=== PATIENT | female | born 1980 | race African-American/Black ===

== ENCOUNTER 2018-09-26 13:42 | Emergency (ER) | payer OTHER ==
--- OUTSIDE RECORDS SUMMARY | 2018-09-26 13:45 | XMS REPORT ---
:1980 Author Organization eClinicalWorks Care Team Providers Name Role Phone Caitlin Floyd Provider Role Unavailable Allergies, Adverse Reactions, Alerts Substance Reaction Event Type amitriptyline Info Not Available Drug Allergy Problems Problem Type Condition Code Onset Dates Condition Status Problem History of abnormal cervical Pap Z87.898 Active smear Assessment Well woman exam with routine Z01.419 Active gynecological exam Problem IUD (intrauterine device) in place Z97.5 Active Assessment IUD (intrauterine device) in place Z97.5 Active Assessment History of abnormal cervical Pap Z87.898 Active smear Medications Medication Code Code Instructions Start End Status Dosage System Date Date Mirena (52 MG) [facility] 59612916325 20 MCG/24HR Active not Intrauterine defined Trazodone HCl [facility] [address]-61 Active not defined Results No Known Results Summary Purpose eClinicalWorks Submission
--- OUTSIDE RECORDS SUMMARY | 2018-09-26 13:45 | XMS REPORT ---
:1980 Author Organization eClinicalWorks Care Team Providers Name Role Phone Caitlin Floyd Provider Role Unavailable Allergies, Adverse Reactions, Alerts Substance Reaction Event Type amitriptyline Info Not Available Drug Allergy Problems Problem Type Condition Code Onset Dates Condition Status Problem IUD (intrauterine device) in place Z97.5 Active Problem History of abnormal cervical Pap Z87.898 Active smear Problem Vaginal symptom N94.9 Active Assessment Vaginal symptom N94.9 Active Assessment Discharge from the vagina N89.8 Active Medications Medication Code Code Instructions Start End Status Dosage System Date Date Mirena (52 MG) [facility] [id number] 20 MCG/24HR Active not Intrauterine defined Trazodone HCl [facility] [address]-87 Active not defined Results No Known Results Summary Purpose eClinicalWorks Submission
--- OUTSIDE RECORDS SUMMARY | 2018-09-26 13:45 | XMS REPORT ---
:1980 Author Organization eClinicalWorks Care Team Providers Name Role Phone Caitlin Floyd Provider Role Unavailable Allergies No Known Allergies Problems Problem Type Condition Code Onset Dates Condition Status Problem IUD (intrauterine device) in place Z97.5 Active Problem History of abnormal cervical Pap Z87.898 Active smear Problem Vaginal symptom N94.9 Active Medications No Known Medications Results No Known Results Summary Purpose eClinicalWorks Submission
--- OUTSIDE RECORDS SUMMARY | 2018-09-26 13:45 | XMS REPORT ---
:1980 Author Organization eClinicalWorks Care Team Providers Name Role Phone Caitlin Floyd Provider Role Unavailable Allergies, Adverse Reactions, Alerts Substance Reaction Event Type amitriptyline Info Not Available Drug Allergy Problems Problem Type Condition Code Onset Dates Condition Status Problem HSV (herpes simplex virus) A60.9 Active anogenital infection Problem Vaginal symptom N94.9 Active Problem History of shingles Z86.19 Active Assessment HSV (herpes simplex virus) A60.9 Active anogenital infection Assessment History of shingles Z86.19 Active Problem IUD (intrauterine device) in place Z97.5 Active Problem History of abnormal cervical Pap Z87.898 Active smear Medications Medication Code Code Instructions Start End Status Dosage System Date Date Valacyclovir [facility] 06366102200 1 GM Orally September 01September Active 1 tablet HCl every 12 hours 2017 Trazodone HCl [facility] [address]-00 Active not defined Mirena (52 MG) [facility] 82638839171 20 MCG/24HR Active not Intrauterine defined Results No Known Results Summary Purpose eClinicalWorks Submission
[2018-09-26 14:40] LABS: Absolute Lymphocytes (CBC) 2.3 K/uL (0.7-4.9); Eosinophils % 0.6 % (0-4.4); Hematocrit 31.3 % (36.0-45.0); Lymphocytes % 34.4 % (15.3-44.8); MPV 9.4 fL (7.6-11.3); Monocytes % 10.2 % (3.3-12.3); RBC Red Blood Cell Count 4.14 M/uL (3.86-4.86)
[2018-09-26] MEDS ORDERED: ONDANSETRON 4 MG/2 ML VIAL ONE (14:46)
[2018-09-26] MEDS ORDERED: MORPHINE 4 MG/ML SYR ONE ×2 (14:46→16:43)
[2018-09-26 14:58] LABS: ALT/SGPT 14 U/L (12-78); AST/SGOT 19 U/L (15-37); Albumin 3.8 g/dL (3.4-5.0); Alkaline Phosphatase 56 U/L (45-117); BUN Blood Urea Nitrogen 7 mg/dL (7-18); Bicarbonate 26 mmol/L (21-32); Bilirubin Direct < 0.1 mg/dL (0-0.2); Bilirubin Total 0.2 mg/dL (0.2-1.0); Glucose Level 83 mg/dL (74-106); Lipase 219 U/L (73-393); Potassium 4.2 mmol/L (3.5-5.1); Protein, Total 7.3 g/dL (6.4-8.2); Sodium Level 143 mmol/L (136-145)
--- NOTE | 2018-09-26 15:31 | RAD REPORT ---
EXAM DESCRIPTION: CT - Abdomen Pelvis W Contrast - 09/26/2018 3:17 pm CLINICAL HISTORY: Abdominal pain and cramping COMPARISON: August 2008 CT study TECHNIQUE: Biphasic, helical CT imaging of the abdomen and pelvis was performed following 100 ml non -ionic IV contrast. Oral contrast was given. All CT scans are performed using dose optimization technique as appropriate and may include automated exposure control or mA/KV adjustment according to patient size. FINDINGS: No suspicious findings in the lung bases. The liver, spleen, and pancreas show no suspicious findings. Gallbladder and biliary tree are also wi thout suspicious finding. Symmetric renal function is seen with no hydronephrosis or suspicious renal mass. No pyelonephritis o r acute parenchymal process. No bladder abnormalities. No adrenal abnormalities. IUD is in place with in the uterus. No acute uterine finding. No gross ovarian abnormality. Ovaries are isodense to the ad jacent small bowel. No gastric dilatation or gastric wall thickening. Postsurgical changes the stomach are noted. No acut e colon finding. The appendix is normal. A few prominent small bowel loops are present in the lower a bdomen. No free air, free fluid or inflammatory stranding. No hernia, mass or bulky lymphadenopathy. No suspicious bony findings. IMPRESSION: A few prominent small bowel loops are present in the lower abdomen and may reflect a non specific enteritis. No obstruction or surgically emergent finding. No acute or BEACH ATTENDANT process.
--- NOTE | 2018-09-26 16:42 | EDPHYS ---
Physician Documentation [facility] Name: Sarmad Kaur Age: 38 yrs Sex: Female : 1980 Arrival Date: 09/26/2018 Time: 13:44 Bed 13 Private MD: Sanju Cheung R ED Physician Matt Smith HPI: 09/26 14:07 This 38 yrs old Black Female presents to ER via Ambulatory with complaints of Abdominal jmm Pain, Abdominal Cramping. 14:07 The patient presents with abdominal pain in the lower abdomen. Onset: The jmm symptoms/episode began/occurred gradually, 1 week(s) ago. The symptoms do not radiate. Associated signs and symptoms: Pertinent positives: diarrhea, nausea. The symptoms are described as achy. Modifying factors: The symptoms are alleviated by nothing, the symptoms are aggravated by pressure, touching the area. Patient states coworkers with similar symptoms. . 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 - Ebola Screening: : No symptoms or risks identified at this time. - Social history:: Smoking status: Patient/guardian denies using tobacco, Patient/guardian denies using alcohol. ROS: 14:07 Constitutional: Negative for fever, chills, and weight loss, Cardiovascular: Negative jmm for chest pain, palpitations, and edema, Respiratory: Negative for shortness of breath, cough, wheezing, and pleuritic chest pain. 14:07 Abdomen/GI: Positive for abdominal pain, nausea, diarrhea. 14:07 All other systems are negative. Exam: 14:07 Constitutional: This is a well developed, well nourished patient who is awake, alert, jmm and in no acute distress. Head/Face: atraumatic. Eyes: EOMI, no conjunctival erythema appreciated ENT: Moist Mucus Membranes Neck: Trachea midline, Supple Chest/axilla: Normal chest wall appearance and motion. Cardiovascular: Regular rate and rhythm. No edema appreciated Respiratory: Normal respirations, no respiratory distress appreciated 14:07 Skin: General appearance color normal MS/ Extremity: Moves all extremities, no obvious deformities appreciated, no edema noted to the lower extremities Neuro: Awake and alert, normal gait 14:07 Abdomen/GI: Inspection: abdomen appears normal, Bowel sounds: normal, Palpation: soft, mild abdominal tenderness, in the right lower quadrant and left lower quadrant. 14:07 Back: ROM is normal, CVA tenderness, is absent. Vital Signs: 13:51 BP 113 / 67; Pulse 68; Resp 16 S; Temp 98.1(TE); Pulse Ox 99% on R/A; Weight 68.95 kg aa5 (R); Height 5 ft. 4 in. (162.56 cm) (R); Pain 6/10; 14:36 BP 105 / 67; Pulse 69; Resp 18; Pulse Ox 100% on R/A; hj 15:39 BP 132 / 72; Pulse 62; Resp 18; Pulse Ox 100% on R/A; hj 16:51 BP 102 / 56; Pulse 62; Resp 18; Pulse Ox 100% on R/A; hj 13:51 Body Mass Index 26.09 (68.95 kg, 162.56 cm) aa5 MDM: 14:07 Patient medically screened. bogdan 16:40 Data reviewed: vital signs, nurses notes. Counseling: I had a detailed discussion with bogdan the patient and/or guardian regarding: the historical points, exam findings, and any diagnostic results supporting the discharge/admit diagnosis, lab results, radiology results, the need for outpatient follow up, to return to the emergency department if symptoms worsen or persist or if there are any questions or concerns that arise at home. 16:40 ED course: Patient pain is decreased in the ED. Patient will follow up with Dr. Rae mcfadden for further evaluation. Patient otherwise given strict return precautions. Patient understood and agrees with the plan of care. . 09/26 14:17 Order name: Basic Metabolic Panel [facility] 09/26 14:17 Order name: CBC with Diff [facility] 09/26 14:17 Order name: Creatinine for Radiology; Complete Time: 15:36 [facility] 09/26 14:17 Order name: Hepatic Function; Complete Time: 15:36 [facility] 09/26 14:17 Order name: Lipase; Complete Time: 15:36 [facility] 09/26 14:18 Order name: Basic Metabolic Panel; Complete Time: 15:36 [facility] 09/26 14:17 Order name: IV Saline Lock; Complete Time: 14:30 [facility] 09/26 14:17 Order name: CT Abd/Pelvis - PO and IV Contrast; Complete Time: 15:36 [facility] 09/26 14:18 Order name: CBC with Automated Diff; Complete Time: 15:36 [facility] 09/26 16:43 Order name: Urine Dipstick--Ancillary (enter results); Complete Time: 17:45 09/26 16:43 Order name: Urine --Ancillary (enter results); Complete Time: 17:45 09/26 14:17 Order name: Labs collected and sent; Complete Time: 14:30 [facility] 09/26 16:14 Order name: Urine Dipstick-Ancillary (obtain specimen); Complete Time: 16:32 jm Administered Medications: 14:30 Drug: morphine 4 mg Route: IVP; Site: left antecubital; hj 14:56 Follow up: Response: No adverse reaction hj 14:31 Drug: Zofran 4 mg Route: IVP; Site: left antecubital; hj 14:57 Follow up: Response: No adverse reaction; Nausea is decreased hj 16:24 Drug: morphine 4 mg Route: IVP; Site: left antecubital; hj 16:53 Follow up: Response: No adverse reaction; Pain is decreased hj Disposition: 09/27 10:10 Co-signature as Attending Physician, Matt Smith MD I agree with the assessment and marbella plan of care. Disposition: 09/26/18 16:41 Discharged to Home. Impression: Diarrhea, unspecified, Lower abdominal pain, unspecified. - Condition is Stable. - Discharge Instructions: Abdominal Pain, Adult, Food Choices to Help Relieve Diarrhea, Adult. - Prescriptions for Zofran ODT 4 mg Oral tablet,disintegrating - place 1 tablet by TRANSLINGUAL route every 4-6 hours; 20 tablet. Bentyl 20 mg Oral Tablet - take 1 tablet by ORAL route every 6 hours As needed; 20 tablet. Ultracet 37.5- 325 mg Oral Tablet - take 1 tablet by ORAL route every 6 hours - for up to 5 days; do not exceed 8 tablets per day.; 12 tablet. - Medication Reconciliation Form, Thank You Letter, Antibiotic Education, Prescription Opioid Use form. - Follow up: Mona Mcbride MD; When: 2 - 3 days; Reason: Recheck today's complaints, Continuance of care, Re-evaluation by your physician. Signatures: Dispatcher [employer] Matt Stewart MD MD cha Mickail, Joel, PA PA jmm Calderon, Audri, RN RN aa5 Dakota Chandler RN RN hj Corrections: (The following items were deleted from the chart) 09/26 17:09 16:41 09/26/2018 16:41 Discharged to Home. Impression: Diarrhea, unspecified; Lower hj abdominal pain, unspecified. Condition is Stable. Forms are Medication Reconciliation Form, Thank You Letter, Antibiotic Education, Prescription Opioid Use. Follow up: Mona Mcbride; When: 2 - 3 days; Reason: Recheck today's complaints, Continuance of care, Re-evaluation by your physician. bogdan
--- NOTE | 2018-09-26 16:42 | ER ---
Nurse's Notes [facility] Name: Sarmad Kaur Age: 38 yrs Sex: Female : 1980 Arrival Date: 09/26/2018 Time: 13:44 Bed 13 Private MD: Sanju Cheung R Diagnosis: Diarrhea, unspecified;Lower abdominal pain, unspecified Presentation: 09/26 13:49 Presenting complaint: Patient states: Abdominal cramping that began 1 week ago. Pt aa5 reports nausea and diarrhea. Denies vomiting. Transition of care: patient was not received from another setting of care. Onset of symptoms was September 2018. Risk Assessment: Do you want to hurt yourself or someone else? Patient reports no desire to harm self or others. Initial Sepsis Screen: Does the patient meet any 2 criteria? No. Patient's initial sepsis screen is negative. Does the patient have a suspected source of infection? No. Patient's initial sepsis screen is negative. Care prior to arrival: None. 13:49 Acuity: [place] 3 aa5 13:49 Method Of Arrival: Ambulatory aa5 Triage Assessment: 13:56 General: Appears in no apparent distress. uncomfortable, Behavior is calm, cooperative, hj appropriate for age. Pain: Complains of pain in abdomen. GI: Reports lower abdominal pain, upper abdominal pain, diarrhea, nausea. 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 - Ebola Screening: : No symptoms or risks identified at this time. - Social history:: Smoking status: Patient/guardian denies using tobacco, Patient/guardian denies using alcohol. Screenin:56 Abuse screen: Denies threats or abuse. Denies injuries from another. Nutritional hj screening: No deficits noted. Tuberculosis screening: No symptoms or risk factors identified. Fall Risk None identified. Assessment: 13:56 GI: Bowel sounds present X 4 quads. Abd is soft. hj 13:56 General: Appears in no apparent distress. uncomfortable, Behavior is calm, cooperative, hj appropriate for age. Pain: Complains of pain in abdomen. Neuro: Level of Consciousness is awake, alert, obeys commands, Oriented to person, place, time, situation, Appropriate for age. Cardiovascular: Capillary refill < 3 seconds Patient's skin is warm and dry. Respiratory: Airway is patent Respiratory effort is even, unlabored, Respiratory pattern is regular, symmetrical. : No signs and/or symptoms were reported regarding the genitourinary system. EENT: No signs and/or symptoms were reported regarding the EENT system. Derm: No signs and/or symptoms reported regarding the dermatologic system. Musculoskeletal: No signs and/or symptoms reported regarding the musculoskeletal system. 15:24 Reassessment: Patient and/or family updated on plan of care and expected duration. Pain hj level reassessed. Patient is alert, oriented x 3, equal unlabored respirations, skin warm/dry/pink. awaiting results and POC:. 16:51 Reassessment: Patient and/or family updated on plan of care and expected duration. Pain hj level reassessed. Patient is alert, oriented x 3, equal unlabored respirations, skin warm/dry/pink. for D?C;. Vital Signs: 13:51 BP 113 / 67; Pulse 68; Resp 16 S; Temp 98.1(TE); Pulse Ox 99% on R/A; Weight 68.95 kg aa5 (R); Height 5 ft. 4 in. (162.56 cm) (R); Pain 6/10; 14:36 BP 105 / 67; Pulse 69; Resp 18; Pulse Ox 100% on R/A; hj 15:39 BP 132 / 72; Pulse 62; Resp 18; Pulse Ox 100% on R/A; hj 16:51 BP 102 / 56; Pulse 62; Resp 18; Pulse Ox 100% on R/A; hj 13:51 Body Mass Index 26.09 (68.95 kg, 162.56 cm) aa5 ED Course: 13:44 Patient arrived in ED. rg4 13:45 Sanju Cheung MD is Private Physician. rg4 13:50 Triage completed. aa5 13:50 Arm band placed on. aa5 13:55 Dakota Chandler, ISIDRA is Primary Nurse. hj 13:57 Patient has correct armband on for positive identification. Placed in gown. Bed in low hj position. Call light in reach. Side rails up X 1. 14:00 [facility] 14:00 Matt Smith MD is Attending Physician. [facility] 14:25 Initial lab(s) drawn, by me, sent to lab. Inserted saline lock: 20 gauge in left hj antecubital area, using aseptic technique. Blood collected. 15:17 CT completed. Patient tolerated procedure well. Patient moved back from CT. mw3 15:17 CT Abd/Pelvis - PO and IV Contrast In Process Unspecified. EDMS 16:35 Urine collected: clean catch specimen, clear, samuel colored. jb1 16:41 Mona Mcbride MD is Referral Physician. [facility] 16:52 No provider procedures requiring assistance completed. IV discontinued, intact, hj bleeding controlled, No redness/swelling at site. Pressure dressing applied. Administered Medications: 14:30 Drug: morphine 4 mg Route: IVP; Site: left antecubital; hj 14:56 Follow up: Response: No adverse reaction hj 14:31 Drug: Zofran 4 mg Route: IVP; Site: left antecubital; hj 14:57 Follow up: Response: No adverse reaction; Nausea is decreased hj 16:24 Drug: morphine 4 mg Route: IVP; Site: left antecubital; hj 16:53 Follow up: Response: No adverse reaction; Pain is decreased hj Outcome: 16:41 Discharge ordered by MD. jmm 16:52 Discharged to home ambulatory, with family. hj 16:52 Condition: stable 16:52 Discharge instructions given to patient, family, Instructed on discharge instructions, follow up and referral plans. medication usage, Demonstrated understanding of instructions, follow-up care, medications, Prescriptions given X 3. 17:09 Patient left the ED. hj Signatures: Dispatcher [employer] EDMS Bret Orona jb1 Hugo Galindo PA PA Mariluz Dejesus, RN RN aa5 Dakota Chandler RN RN Mansi Baker4 Eloisa Moon mw3 Corrections: (The following items were deleted from the chart) 13:52 13:51 BP 113 / 67; Pulse 68bpm; Resp 16bpm; Spontaneous; Pulse Ox 99% RA; Temp 98.1F aa5 Temporal; aa5
[2018-09-26 16:47] LABS: Urine Blood NEGATIVE (NEG); Urine Glucose NEGATIVE (NEG); Urine Protein NEGATIVE (NEG); Urine Specific Gravity 1.015 (1.005-1.030)
== END 2018-09-26 17:09 | disposition home or self-care (01) ==
LOC: ER 13:42
DX: R19.7 Diarrhea, unspecified (principal); Z88.8 Allergy status to other drugs, medicaments and biological substances
CPT/HCPCS: 85025; 80048; 36415; 81025; 80076; 81003; 83690; 74177; 96375; 96374; 99284; Q9967; J2405

== ENCOUNTER 2018-10-14 09:18 | Emergency (ER) | payer OTHER ==
--- OUTSIDE RECORDS SUMMARY | 2018-10-14 09:20 | XMS REPORT ---
[...] Dosage System Date Date Mirena (52 MG) [facility] 29887574166 20 MCG/24HR Active not Intrauterine defined Trazodone HCl [facility] [address]-64 Active not defined Results No Known Results Summary Purpose eClinicalWorks Submission
--- OUTSIDE RECORDS SUMMARY | 2018-10-14 09:20 | XMS REPORT ---
[...] Dosage System Date Date Mirena (52 MG) [facility] 32316310303 20 MCG/24HR Active not Intrauterine defined Trazodone HCl [facility] [address]-89 Active not defined Results No Known Results Summary Purpose eClinicalWorks Submission
--- OUTSIDE RECORDS SUMMARY | 2018-10-14 09:21 | XMS REPORT ---
[...] End Status Dosage System Date Date Valacyclovir [facility] [id number] 1 GM Orally September 01September Active 1 tablet HCl every 12 hours 2017 Trazodone HCl [facility] [address]-02 Active not defined Mirena (52 MG) [facility] 08910520043 20 MCG/24HR Active not Intrauterine defined Results No Known Results Summary Purpose eClinicalWorks Submission
[2018-10-14] MEDS ORDERED: FENTANYL CITR 100 MCG/2 ML ONE (10:15)
[2018-10-14] MEDS ORDERED: ASPIRIN 81 MG CHEWABLE TABLET ONE (10:15)
--- NOTE | 2018-10-14 10:22 | RAD REPORT ---
EXAM DESCRIPTION: US - CP - 10/14/2018 10:11 am CLINICAL HISTORY: NUMBNESS Headache, drowsiness COMPARISON: CT MYELOGRAM CERVICAL dated 10/18/2013; THYROID PARA PAROTID GLAND dated 06/09/2007 TECHNIQUE: Real-time sonographic evaluation of both carotid systems was performed. Doppler interroga tion was performed with waveform tracing bilaterally. FINDINGS: Normal high resistance waveforms are noted in both external carotid arteries. The common c arotid arteries and internal carotid arteries show normal low resistance waveforms. Small amount hard plaque is seen in the left carotid bulb. Peak systolic and end diastolic velocity v alues and the ICA/CCA ratios are in the non-hemodynamically significant range. Antegrade flow seen in both vertebral arteries. IMPRESSION: Small amount of hard plaque is seen left carotid bulb. No evidence of a hemodynamically significant stenosis.
--- NOTE | 2018-10-14 10:31 | RAD REPORT ---
EXAM DESCRIPTION: RAD - Chest Single View - 10/14/2018 10:23 am CLINICAL HISTORY: CHEST PAIN Chest pain. COMPARISON: CHEST PA AND LAT 2 VIEW dated 06/30/2008; CHEST SINGLE VIEW dated 01/05/2005; ABDOMEN ACUT E SERIES dated 08/27/2003; CHEST PA AND LAT 2 VIEW dated 05/29/2002 FINDINGS: Portable technique limits examination quality. The lungs are grossly clear. The heart is upper limit of normal in size. No displaced fractures.Cervi ines hardware plate is noted. IMPRESSION: No acute intrathoracic process suspected.
[2018-10-14 10:58] LABS: Urine Blood NEGATIVE (NEG); Urine Glucose NEGATIVE (NEG); Urine Protein TRACE (NEG); Urine Specific Gravity 1.015 (1.005-1.030); Urine pH 8.5 (5.0-7.0)
[2018-10-14 11:05] LABS: Absolute Lymphocytes (CBC) 2.6 K/uL (0.7-4.9); Basophils % 0.9 % (0-1.3); Eosinophils % 0.7 % (0-4.4); Hematocrit 35.9 % (36.0-45.0); Lymphocytes % 36.2 % (15.3-44.8); Monocytes % 7.9 % (3.3-12.3); RBC Red Blood Cell Count 4.76 M/uL (3.86-4.86)
[2018-10-14 11:07] LABS: Protime INR 1.02
[2018-10-14 11:32] LABS: ALT/SGPT 17 U/L (12-78); AST/SGOT 16 U/L (15-37); Albumin 4.2 g/dL (3.4-5.0); Alkaline Phosphatase 57 U/L (45-117); BUN Blood Urea Nitrogen 6 mg/dL (7-18); Bicarbonate 26 mmol/L (21-32); Bilirubin Direct < 0.1 mg/dL (0-0.2); Bilirubin Total 0.2 mg/dL (0.2-1.0); Glucose Level 89 mg/dL (74-106); Magnesium 1.9 mg/dL (1.8-2.4); NT PRO-BNP 61 pg/mL (<125); Potassium 3.5 mmol/L (3.5-5.1); Sodium Level 142 mmol/L (136-145); Troponin (Emerg Dept Use Only) < 0.02 ng/mL (0.0-0.045)
[2018-10-14 11:48] LABS: Urine Bacteria <20 /HPF (<20); Urine Culture Reflex Order NOT NEEDED; Urine RBC NONE SEEN /HPF (NONE SEEN)
--- NOTE | 2018-10-14 12:14 | RAD REPORT ---
EXAM DESCRIPTION: CT - Chest For Pe Angio - 10/14/2018 12:04 pm CLINICAL HISTORY: Chest pain. CHEST PAIN COMPARISON: <Comparisons> TECHNIQUE: CT angiogram of the pulmonary arteries was performed with MIP. All CT scans are performed using dose optimization technique as appropriate and may include automated exposure control or mA/KV adjustment according to patient size. FINDINGS: No evidence of pulmonary thromboembolism. No acute aortic finding demonstrated. The lungs are clear. No significant pericardial or pleural fluid. No concerning bony finding. IMPRESSION: No evidence of pulmonary thromboembolism. No acute lung findings.
[2018-10-14] MEDS ORDERED: FAMOTIDINE 20 MG/2 ML VIAL IV ONE (12:22)
[2018-10-14] MEDS ORDERED: DIPHENHYDRAMINE 50 MG/ML VIAL ONE (12:22)
[2018-10-14] MEDS ORDERED: METHYLPREDNISOLONE 125 MG INJ ONE (12:22)
--- NOTE | 2018-10-14 14:16 | EDPHYS ---
Physician Documentation [facility] Name: Sarmad Kaur Age: 38 yrs Sex: Female : 1980 Arrival Date: 10/14/2018 Time: 09:19 Bed 20 Private MD: ED Physician Cong Min HPI: 10/14 09:55 This 38 yrs old Black Female presents to ER via Wheelchair with complaints of Chest snw Pain, Numbness Of Face. 09:55 Onset: The symptoms/episode began/occurred suddenly, this morning. Associated signs and snw symptoms: Pertinent positives: "i just don't feel right". Modifying factors: The patient symptoms are alleviated by nothing, the patient symptoms are aggravated by movement, deep inspiration. The patient has not experienced similar symptoms in the past. Sees Dr. Cheung. SHOW HOST/HOSTESS: 09:30 LMP N/A - control method iw Historical: - Allergies: 09:52 Amitriptyline; iw - Home Meds: 09:52 topiramate 100 mg oral tab 1 tab 2 times per day [Active]; iw - PMHx: 09:52 Depression; HYPOGLYCEMIA; neuropathy; T10-S1 Herniated/Bulging Disc; Migraines; iw - PSHx: 09:52 ACDF; Tubal ligation; iw - Immunization history:: Adult Immunizations not up to date. - Social history:: Smoking status: Patient/guardian denies using tobacco. - Ebola Screening: : Patient negative for fever greater than or equal to 101.5 degrees Fahrenheit, and additional compatible Ebola Virus Disease symptoms Patient denies exposure to infectious person Patient denies travel to an Ebola-affected area in the 21 days before illness onset No symptoms or risks identified at this time. ROS: 09:47 Constitutional: Negative for fever, chills, and weight loss, Eyes: Negative for injury, snw pain, redness, and discharge, ENT: Negative for injury, pain, and discharge, Neck: Negative for injury, pain, and swelling. 09:47 Abdomen/GI: Negative for abdominal pain, nausea, vomiting, diarrhea, and constipation, Back: Negative for injury, left back with pain on inspiration : Negative for injury, bleeding, discharge, and swelling, MS/Extremity: Negative for injury and deformity, Skin: Negative for injury, rash, and discoloration. 09:47 Psych: Negative for depression, anxiety, suicide ideation, homicidal ideation, and hallucinations. 09:47 Cardiovascular: Positive for chest pain, of the left clavicle, anterior aspect of left upper chest and left lateral posterior chest, pt unable to differentiate if pain is at chest or in upper left back. 09:47 Respiratory: Positive for pleurisy, of the anterior aspect of left upper chest and left lateral posterior chest. 09:47 Neuro: Positive for numbness, of the right cheek and right jaw. Exam: 09:45 Constitutional: This is a well developed, well nourished patient who is awake, alert, snw and in no acute distress. Head/Face: Normocephalic, atraumatic. Eyes: Pupils equal round and reactive to light, extra-ocular motions intact. Lids and lashes normal. Conjunctiva and sclera are non-icteric and not injected. Cornea within normal limits. Periorbital areas with no swelling, redness, or edema. ENT: Nares patent. No nasal discharge, no septal abnormalities noted. Tympanic membranes are normal and external auditory canals are clear. Oropharynx with no redness, swelling, or masses, exudates, or evidence of obstruction, uvula midline. Mucous membranes moist. Neck: Trachea midline, no thyromegaly or masses palpated, and no cervical lymphadenopathy. Supple, full range of motion without nuchal rigidity, or vertebral point tenderness. No Meningismus. Chest/axilla: Normal chest wall appearance and motion. Nontender with no deformity. No lesions are appreciated. 09:45 Respiratory: Lungs have equal breath sounds bilaterally, clear to auscultation and percussion. No rales, rhonchi or wheezes noted. No increased work of breathing, no retractions or nasal flaring. Splinting second to pain to left chest Abdomen/GI: Soft, non-tender, with normal bowel sounds. No distension or tympany. No guarding or rebound. No evidence of tenderness throughout. Back: No spinal tenderness. No costovertebral tenderness. Full range of motion. Skin: Warm, dry with normal turgor. Normal color with no rashes, no lesions, and no evidence of cellulitis. MS/ Extremity: Pulses equal, no cyanosis. Neurovascular intact. Full, normal range of motion. Neuro: Awake and alert, GCS 15, oriented to person, place, time, and situation. Cranial nerves II-XII grossly intact. Motor strength 5/5 in all extremities. Sensory grossly intact. Cerebellar exam normal. Normal gait. alteration in sensation to right face 09:45 Cardiovascular: Rate: tachycardic, Rhythm: regular, Pulses: no pulse deficits are appreciated, Heart sounds: normal. 09:45 ECG was reviewed by the Attending Physician. Vital Signs: 09:30 BP 104 / 66; Pulse 82; Resp 16; Temp 97.7; Pulse Ox 99% on R/A; Pain 8/10; iw 10:55 BP 117 / 78; Pulse 64; Resp 18; Pulse Ox 100% on R/A; ae4 11:19 BP 113 / 63; Pulse 74; Resp 18; Pulse Ox 99% on R/A; ae4 12:29 BP 98 / 55; Pulse 53; Resp 15; Pulse Ox 100% on R/A; ae4 13:29 BP 90 / 56; Pulse 66; Resp 20; Temp 98.0(O); Pulse Ox 100% ; mh5 14:05 BP 96 / 65; Pulse 66; Resp 21; Pulse Ox 100% on R/A; ae4 MDM: 09:28 Patient medically screened. snw 14:17 Data reviewed: vital signs, nurses notes. Data interpreted: Pulse oximetry: on room air snw is 100 %. Interpretation: normal. Counseling: I had a detailed discussion with the patient and/or guardian regarding: the historical points, exam findings, and any diagnostic results supporting the discharge/admit diagnosis, lab results, radiology results, the need for outpatient follow up, to return to the emergency department if symptoms worsen or persist or if there are any questions or concerns that arise at home. Special discussion: Based on the patient's history, exam, and Dx evaluation, there is no indication for emergent intervention or inpatient Tx. It is understood by the patient/guardian that if the Sx's persist or worsen they need to return immediately for re-evaluation. Based on the history and exam findings, there is no indication for further emergent testing or inpatient evaluation. I discussed with the patient/guardian the need to see the primary care provider for further evaluation of the symptoms. 10/14 09:29 Order name: Basic Metabolic Panel; Complete Time: 11:34 snw 10/14 09:29 Order name: CBC with Diff; Complete Time: 11:07 snw 10/14 09:29 Order name: LFT's; Complete Time: 11:34 w 10/14 09:29 Order name: Magnesium; Complete Time: 11:34 snw 10/14 09:29 Order name: NT PRO-BNP; Complete Time: 11:34 snw 10/14 09:29 Order name: PT-INR; Complete Time: 11:12 snw 10/14 09:29 Order name: Troponin (emerg Dept Use Only); Complete Time: 11:34 10/14 09:29 Order name: XRAY Chest (1 view); Complete Time: 10:34 10/14 09:29 Order name: TSH; Complete Time: 11:34 10/14 09:29 Order name: Carotid Artery Bilateral US; Complete Time: 10:23 10/14 09:31 Order name: Urine Microscopic Only; Complete Time: 11:49 10/14 10:52 Order name: Urine Dipstick--Ancillary (enter results) ag 10/14 10:52 Order name: Urine --Ancillary (enter results); Complete Time: 10:59 ag 10/14 12:29 Order name: Troponin I; Complete Time: 13:35 ae4 10/14 09:29 Order name: EKG; Complete Time: 09:32 10/14 09:29 Order name: Cardiac monitoring; Complete Time: 10:54 10/14 09:29 Order name: EKG - Nurse/Tech; Complete Time: 10:54 10/14 09:29 Order name: IV Saline Lock; Complete Time: 10:55 10/14 09:29 Order name: Labs collected and sent; Complete Time: 10:55 10/14 09:29 Order name: O2 Per Protocol; Complete Time: 10:55 10/14 09:29 Order name: O2 Sat Monitoring; Complete Time: 10:55 10/14 09:31 Order name: Urine Test (obtain specimen); Complete Time: 10:54 10/14 09:31 Order name: Urine Dipstick-Ancillary (obtain specimen); Complete Time: 10:54 10/14 09:44 Order name: CT Chest For PE Angio; Complete Time: 12:18 snw 10/14 12:19 Order name: Repeat Cardiac Enzymes at: 1245; Complete Time: 12:53 snw 10/14 13:35 Order name: EKG; Complete Time: 13:35 snw Administered Medications: 10:38 Drug: Aspirin Chewable Tablet 324 mg Route: PO; ae4 14:16 Follow up: Response: No adverse reaction ae4 10:38 Drug: fentaNYL (PF) 25 mcg Route: IVP; Site: left antecubital; ae4 14:16 Follow up: Response: Pain is unchanged, physician notified ae4 12:22 Drug: Benadryl 25 mg Route: IVP; Site: left antecubital; iw 12:39 Follow up: Response: Other; Patient appears more relaxed, patient reports the feeling ae4 in her throat is gone. 14:20 Drug: TORadol - Ketorolac 15 mg Route: IVP; Site: left antecubital; ae4 14:33 Follow up: Response: Medication administered at discharge. ae4 Disposition: 19:04 Co-signature as Attending Physician, Cong Min MD I agree with the assessment and kdr plan of care. Disposition: 10/14/18 14:16 Discharged to Home. Impression: Chest pain, unspecified, Paresthesia of skin - right face. - Condition is Stable. - Discharge Instructions: Nonspecific Chest Pain, Paresthesia, Aspirin and Your Heart, Cryotherapy, Heat Therapy. - Work release form, Medication Reconciliation Form, Thank You Letter, Antibiotic Education, Prescription Opioid Use form. - Follow up: Sanju Cheung MD; When: as scheduled; Reason: Recheck today's complaints, Continuance of care, Re-evaluation by your physician. Follow up: Emergency Department; When: As needed; Reason: Worsening of condition. Signatures: Dispatcher [employer] EDWI Cong Min MD MD kdr Therrien, Shelly, FNP-C REINSURANCE CLAIM ANALYST-Susie Chu, ISIDRA RN iw Stephen Lynn RN RN ae4 Corrections: (The following items were deleted from the chart) 14:43 14:16 10/14/2018 14:16 Discharged to Home. Impression: Chest pain, unspecified; ae4 Paresthesia of skin - right face. Condition is Stable. Forms are Medication Reconciliation Form, Thank You Letter, Antibiotic Education, Prescription Opioid Use. Follow up: Sanju Cheung; When: as scheduled; Reason: Recheck today's complaints, Continuance of care, Re-evaluation by your physician. Follow up: Emergency Department; When: As needed; Reason: Worsening of condition. snw
--- NOTE | 2018-10-14 14:16 | ER ---
Nurse's Notes [facility] Name: Sarmad Kaur Age: 38 yrs Sex: Female : 1980 Arrival Date: 10/14/2018 Time: 09:19 Bed 20 Private MD: Diagnosis: Chest pain, unspecified;Paresthesia of skin-right face Presentation: 10/14 09:25 Presenting complaint: Patient states: left sided cheat pain started at 0910 this iw morning, pain described as tightness, constant also had tingling/tightness to right side of face radiating down entire right side, symptoms to face are improving but still has chest pain. Transition of care: patient was not received from another setting of care. Onset of symptoms was October 14, 2018. Risk Assessment: Do you want to hurt yourself or someone else? Patient reports no desire to harm self or others. Initial Sepsis Screen: Does the patient meet any 2 criteria? No. Patient's initial sepsis screen is negative. Does the patient have a suspected source of infection? No. Patient's initial sepsis screen is negative. Care prior to arrival: None. 09:25 Method Of Arrival: Wheelchair iw 09:25 Acuity: PEYTON 3 iw Triage Assessment: 11:19 General: Appears in no apparent distress. uncomfortable, Behavior is calm, cooperative, ae4 appropriate for age. VALUER: 09:30 LMP N/A - control method iw Historical: - Allergies: 09:52 Amitriptyline; iw - Home Meds: 09:52 topiramate 100 mg oral tab 1 tab 2 times per day [Active]; iw - PMHx: 09:52 Depression; HYPOGLYCEMIA; neuropathy; T10-S1 Herniated/Bulging Disc; Migraines; iw - PSHx: 09:52 ACDF; Tubal ligation; iw - Immunization history:: Adult Immunizations not up to date. - Social history:: Smoking status: Patient/guardian denies using tobacco. - Ebola Screening: : Patient negative for fever greater than or equal to 101.5 degrees Fahrenheit, and additional compatible Ebola Virus Disease symptoms Patient denies exposure to infectious person Patient denies travel to an Ebola-affected area in the 21 days before illness onset No symptoms or risks identified at this time. Screenin:56 Abuse screen: Denies threats or abuse. Nutritional screening: No deficits noted. ae4 Tuberculosis screening: No symptoms or risk factors identified. Fall Risk None identified. Assessment: 10:57 Pain: Pain began suddenly. ae4 11:20 Reassessment: Patient appears in no apparent distress at this time. Patient and/or ae4 family updated on plan of care and expected duration. Pain level reassessed. Reassessment: Patient states there has been no change to pain level. Pain: Complains of pain in chest. 11:21 General: Appears in no apparent distress. uncomfortable, Behavior is calm, cooperative, ae4 appropriate for age. Pain: Pain does not radiate. Neuro: Level of Consciousness is awake, alert, obeys commands, Oriented to person, place, time, situation, Appropriate for age. Cardiovascular: Reports chest pain, Denies fatigue, lightheadedness, nausea, shortness of breath, Heart tones S1 S2 present. Respiratory: Airway is patent Respiratory effort is even, unlabored, Respiratory pattern is regular, symmetrical, Breath sounds are clear bilaterally. GI: Abdomen is flat. : No signs and/or symptoms were reported regarding the genitourinary system. EENT: No signs and/or symptoms were reported regarding the EENT system. 12:22 Reassessment: technical applications specialist called to report pt was having a hard time breathing after IV iw contrast, pt appears anxious, but feeling like her breathing is better, pt states she feels a lot of anxiety but still feels she can't get a good breath, verbal order given for 25 mg Benadryl IVP given now. 12:37 Reassessment: Patient states Benadryl helped . Patient states feeling better. ae4 14:06 Reassessment: Patient appears in no apparent distress at this time. Patient and/or ae4 family updated on plan of care and expected duration. Pain level reassessed. Patient states feeling better. Vital Signs: 09:30 BP 104 / 66; Pulse 82; Resp 16; Temp 97.7; Pulse Ox 99% on R/A; Pain 8/10; iw 10:55 BP 117 / 78; Pulse 64; Resp 18; Pulse Ox 100% on R/A; ae4 11:19 BP 113 / 63; Pulse 74; Resp 18; Pulse Ox 99% on R/A; ae4 12:29 BP 98 / 55; Pulse 53; Resp 15; Pulse Ox 100% on R/A; ae4 13:29 BP 90 / 56; Pulse 66; Resp 20; Temp 98.0(O); Pulse Ox 100% ; mh5 14:05 BP 96 / 65; Pulse 66; Resp 21; Pulse Ox 100% on R/A; ae4 ED Course: 09:19 Patient arrived in ED. as 09:26 Talita Swan FNP-C [facility]. snw 09:26 Cong Min MD is Attending Physician. snw 09:49 Stephen Lynn, ISIDRA is Primary Nurse. ae4 09:51 Triage completed. iw 09:53 Arm band placed on. iw 10:10 Carotid Artery Bilateral US In Process Unspecified. EDMS 10:24 XRAY Chest (1 view) In Process Unspecified. EDMS 10:33 EKG done, by battery technician. reviewed by Talita LAYTON. dt2 10:56 Inserted saline lock: 22 gauge in left antecubital area, using aseptic technique. Blood ae4 collected. Patient maintains SpO2 saturation greater than 95% on room air. 10:57 Placed in gown. Bed in low position. Call light in reach. Side rails up X 1. Cardiac ae4 monitor on. Pulse ox on. NIBP on. Warm blanket given. 12:06 CT Chest For PE Angio In Process Unspecified. EDMS 14:14 Sanju Cheung MD is Referral Physician. snw 14:34 No provider procedures requiring assistance completed. IV discontinued, intact, ae4 bleeding controlled, No redness/swelling at site. Pressure dressing applied. Administered Medications: 10:38 Drug: Aspirin Chewable Tablet 324 mg Route: PO; ae4 14:16 Follow up: Response: No adverse reaction ae4 10:38 Drug: fentaNYL (PF) 25 mcg Route: IVP; Site: left antecubital; ae4 14:16 Follow up: Response: Pain is unchanged, physician notified ae4 12:22 Drug: Benadryl 25 mg Route: IVP; Site: left antecubital; iw 12:39 Follow up: Response: Other; Patient appears more relaxed, patient reports the feeling ae4 in her throat is gone. 14:20 Drug: TORadol - Ketorolac 15 mg Route: IVP; Site: left antecubital; ae4 14:33 Follow up: Response: Medication administered at discharge. ae4 Intake: Outcome: 14:16 Discharge ordered by MD. everett 14:34 Discharged to home ambulatory. ae4 14:34 Condition: stable 14:34 Discharge instructions given to patient, Instructed on discharge instructions, follow up and referral plans. Demonstrated understanding of instructions. 14:43 Patient left the ED. ae4 Signatures: Dispatcher [employer] EDMS Talita Swan, PETROLEUM ANALYST-C PETROLEUM ANALYST-Sonam Nagy Irene, RN Alfreda Cortes 5 Briseyda Dunn 2 Stephen Lynn RN RN ae4
[2018-10-14] MEDS ORDERED: KETOROLAC 30 MG/ML INJ ONE (14:38)
--- NOTE | 2018-10-14 14:47 | EKG ---
Test Date: 2018-10-14 Test Time: 13:51:07 Fire Extinguisher Technician: KELLI/Josh MEASUREMENT RESULTS: Intervals: Rate: 56 CT: 122 QRSD: 86 QT: 396 QTc: 382 Lawrence: P: 51 CT: 122 QRS: 62 T: 64 INTERPRETIVE STATEMENTS: Sinus bradycardia Otherwise normal ECG Compared to ECG 10/14/2018 09:26:04 Sinus rhythm no longer present Electronically Signed On 10-14-18 14:46:38 CDT by Seth Stack
--- NOTE | 2018-10-14 14:48 | EKG ---
Test Date: 2018-10-14 Test Time: 09:26:04 Ab Initio Etl Developer: HALIE MEASUREMENT RESULTS: Intervals: Rate: 82 NM: 114 QRSD: 80 QT: 360 QTc: 420 [place]: P: 78 NM: 114 QRS: 55 T: 55 INTERPRETIVE STATEMENTS: Normal sinus rhythm Normal ECG No previous ECG available for comparison Electronically Signed On 10-14-18 14:46:49 CDT by Seth Stack
== END 2018-10-14 14:43 | disposition home or self-care (01) ==
LOC: ER 09:18
DX: R20.2 Paresthesia of skin (principal); F32.9 Major depressive disorder, single episode, unspecified; Z88.8 Allergy status to other drugs, medicaments and biological substances
CPT/HCPCS: 93005 ×2; 85025; 80048; 36415; 83735; 81025; 85610; 80076; 84443; 84484 ×2; 83880; 71275; 71045; 93880; 96375; 96374; 99285; Q9967; J3010; 81003; 81015; J2930

== ENCOUNTER 2019-04-29 19:16 | Emergency (ER) | payer OTHER ==
--- OUTSIDE RECORDS SUMMARY | 2019-04-29 19:20 | XMS REPORT ---
[...] End Status Dosage System Date Date Valacyclovir [facility] [id number] 1 GM Orally September 01September Active 1 tablet HCl every 12 hours 2017 Trazodone HCl [facility] [address]-70 Active not defined Mirena (52 MG) [facility] [id number] 20 MCG/24HR Active not Intrauterine defined Results No Known Results Summary Purpose eClinicalWorks Submission
--- OUTSIDE RECORDS SUMMARY | 2019-04-29 19:20 | XMS REPORT ---
:1980 [facility] Address [address] [place] [address] Care Team Providers Name Role Phone Unavailable Unavailable Unavailable Payers Payer Name Policy Type Policy Number Effective Date Expiration Date Problems This patient has no known problems. Allergies, Adverse Reactions, Alerts Allergy Allergy Status Severity Reaction(s) Onset Inactive Treating Comments Name Type Date Date Clinician No Known DA Active U 2014-12 Allergies -12 00:00:0 0 Medications This patient has no known medications.
--- OUTSIDE RECORDS SUMMARY | 2019-04-29 19:20 | XMS REPORT ---
[...] Dosage System Date Date Mirena (52 MG) [facility] [id number] 20 MCG/24HR Active not Intrauterine defined Trazodone HCl [facility] [address]-23 Active not defined Results No Known Results Summary Purpose eClinicalWorks Submission
--- OUTSIDE RECORDS SUMMARY | 2019-04-29 19:20 | XMS REPORT ---
[...] Dosage System Date Date Mirena ([address]) [facility] [id number] 20 MCG/24HR Active not Intrauterine defined Trazodone HCl [facility] [address]-09 Active not defined Results No Known Results Summary Purpose eClinicalWorks Submission
[2019-04-29] MEDS ORDERED: HYDROCODONE/APAP 10/325 TAB ONE (20:30)
[2019-04-29 21:16] LABS: Urine Blood NEGATIVE (NEG); Urine Glucose NEGATIVE (NEG); Urine Protein NEGATIVE (NEG); Urine pH 6.5 (5.0-7.0)
--- NOTE | 2019-04-29 21:33 | RAD REPORT ---
EXAM DESCRIPTION: RAD - Chest Single View - 04/29/2019 8:46 pm CLINICAL HISTORY: COUGH COMPARISON: Chest Single View dated 10/14/2018 TECHNIQUE: AP portable chest image was obtained 04/29/2019 8:46 pm . FINDINGS: Lungs are clear. Heart and vasculature are normal. No measurable pleural effusion and no p neumothorax. No acute bony abnormality seen. No acute aortic findings suspected. IMPRESSION: No acute cardiopulmonary process.
--- NOTE | 2019-04-29 21:34 | RAD REPORT ---
EXAM DESCRIPTION: RAD - Wrist Right 3 View - 04/29/2019 8:46 pm CLINICAL HISTORY: PAIN, trauma COMPARISON: No comparisons FINDINGS: No fracture is identified. There is no dislocation or periosteal reaction noted. No foreig n body or other soft tissue abnormality. IMPRESSION: Negative right wrist examination.
--- NOTE | 2019-04-29 21:34 | RAD REPORT ---
EXAM DESCRIPTION: RAD - Hand Left 3 View - 04/29/2019 8:46 pm CLINICAL HISTORY: Hand pain, trauma COMPARISON: None. FINDINGS: No fracture, dislocation or periosteal reaction noted. No foreign body or other soft tissu e abnormality. Artifacts are present on the fingernails. Watch and truly artifact is seen at the dist al forearm. IMPRESSION: Negative left hand examination.
--- NOTE | 2019-04-29 21:49 | ER ---
Nurse's Notes [facility] Name: Sarmad Kaur Age: 38 yrs Sex: Female : 1980 Arrival Date: 04/29/2019 Time: 19:20 Bed 24 Private MD: Diagnosis: Fall (on) (from) other stairs and steps;Contusion of left hand;Contusion of right wrist;Strain of muscle and tendon of back wall of thorax;Strain of muscle, fascia and tendon at neck level Presentation: 04/29 19:30 Presenting complaint: Patient states: was walking down the stairs with her niece , iw missed a step an fell down 2-3 steps, occurred this morning before 8 am, c/ neck pain, rosio arm pain, back hurts when she breathes in and right wrist hurt, did not hit head , no LOC. Care prior to arrival: None. 19:30 Acuity: PEYTON 4 iw 19:30 Method Of Arrival: Ambulatory iw 19:31 Transition of care: patient was not received from another setting of care. Onset of iw symptoms was April 29, 2019. Risk Assessment: Do you want to hurt yourself or someone else? Patient reports no desire to harm self or others. Initial Sepsis Screen: Does the patient meet any 2 criteria? No. Patient's initial sepsis screen is negative. Does the patient have a suspected source of infection? No. Patient's initial sepsis screen is negative. Triage Assessment: 19:40 General: Appears in no apparent distress. uncomfortable, Behavior is calm, cooperative. ls4 Pain:. Neuro: No deficits noted. Cardiovascular: No deficits noted. Respiratory: No deficits noted. GI: No deficits noted. : No deficits noted. Derm: No deficits noted. Musculoskeletal: No deficits noted. 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 - Coronavirus screen:: The patient has NOT traveled to [place], [place], or [place] in the past 14 days. Proceed with normal triage process as indicated. - Social history:: Smoking status: Patient denies any tobacco usage or history of. - Family history:: not pertinent. - Ebola Screening: : Patient negative for fever greater than or equal to 101.5 degrees Fahrenheit, and additional compatible Ebola Virus Disease symptoms Patient denies exposure to infectious person Patient denies travel to an Ebola-affected area in the 21 days before illness onset No symptoms or risks identified at this time. Screenin:41 Abuse screen: Denies threats or abuse. Denies injuries from another. Nutritional ls4 screening: No deficits noted. Tuberculosis screening: No symptoms or risk factors identified. Fall Risk None identified. Assessment: 19:30 General: Appears uncomfortable. ls4 19:30 Neuro: No deficits noted. Cardiovascular: No deficits noted. Respiratory: No deficits ls4 noted. GI: No deficits noted. Musculoskeletal: Circulation, motion, and sensation intact. Capillary refill < 3 seconds, Range of motion: intact in all extremities, Swelling absent Reports pain in left hand and right hand. 21:00 Reassessment: Patient appears in no apparent distress at this time. No changes from ls4 previously documented assessment. Patient and/or family updated on plan of care and expected duration. Pain level reassessed. Patient is alert, oriented x 3, equal unlabored respirations, skin warm/dry/pink. Vital Signs: 19:32 BP 121 / 74; Pulse 98; Resp 16; Temp 98.6; Pulse Ox 100% ; Weight 71.21 kg; Height 5 iw ft. 6 in. (167.64 cm); Pain 8/10; 21:00 BP 122 / 70; Pulse 78; Resp 14; Pulse Ox 99% on R/A; Pain 3/10; ls4 19:32 Body Mass Index 25.34 (71.21 kg, 167.64 cm) ED Course: 19:20 Patient arrived in ED. jg7 19:31 Triage completed. iw 19:32 Arm band placed on. iw 19:39 Brinda Tan, ISIDRA is Primary Nurse. ls4 19:40 Matt Smith MD is Attending Physician. marbella 19:41 Patient has correct armband on for positive identification. Placed in gown. Bed in low ls4 position. Call light in reach. Side rails up X2. 19:41 No provider procedures requiring assistance completed. ls4 20:46 Wrist Right 3 View XRAY In Process Unspecified. EDMS 20:46 Hand Left 3 View XRAY In Process Unspecified. EDMS 20:46 Chest Single View XRAY In Process Unspecified. EDMS 21:08 CT Traumagram (Head C Spine CAP wo con) In Process Unspecified. EDMS 22:50 Patient did not have IV access during this emergency room visit. ls4 Administered Medications: 20:34 Drug: [place] 10 mg-325 mg 1 tabs Route: PO; ls4 21:00 Follow up: Response: No adverse reaction; Marked relief of symptoms ls4 Outcome: 21:48 Discharge ordered by . marbella 22:20 Discharged to home ambulatory, with family. ls4 22:20 Condition: stable 22:20 Discharge instructions given to patient, family, Instructed on discharge instructions, follow up and referral plans. medication usage, Demonstrated understanding of instructions, follow-up care, medications. 22:41 Patient left the ED. ls4 Signatures: Dispatcher [employer] EDMatt Sanderson MD MD cha Williams, Irene RN RN Brinda Swanson RN RN ls4 Jesenia Freire jg7
--- NOTE | 2019-04-29 21:49 | EDPHYS ---
Physician Documentation [facility] Name: Sarmad Kaur Age: 38 yrs Sex: Female : 1980 Arrival Date: 04/29/2019 Time: 19:20 Bed 24 Private MD: ED Physician Matt Smith HPI: 04/29 20:15 This 38 yrs old Black Female presents to ER via Ambulatory with complaints of Fall marbella Injury. 20:15 Details of fall: The patient fell from a height, down approximately 3 stairs. Onset: marbella The symptoms/episode began/occurred this morning. Associated injuries: The patient sustained neck injury, upper back injury, injury to the chest, right hand and left hand, painful injury. Severity of symptoms: At their worst the symptoms were moderate, in the emergency department the symptoms are unchanged. The patient has not experienced similar symptoms in the past. 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 - Coronavirus screen:: The patient has NOT traveled to [place], [place], or [place] in the past 14 days. Proceed with normal triage process as indicated. - Social history:: Smoking status: Patient denies any tobacco usage or history of. - Family history:: not pertinent. - Ebola Screening: : Patient negative for fever greater than or equal to 101.5 degrees Fahrenheit, and additional compatible Ebola Virus Disease symptoms Patient denies exposure to infectious person Patient denies travel to an Ebola-affected area in the 21 days before illness onset No symptoms or risks identified at this time. ROS: 20:15 Constitutional: Negative for fever, chills, and weight loss, Eyes: Negative for injury, marblela pain, redness, and discharge, ENT: Negative for injury, pain, and discharge, Neck: Negative for injury, pain, and swelling, Cardiovascular: Negative for chest pain, palpitations, and edema, Respiratory: Negative for shortness of breath, cough, wheezing, and pleuritic chest pain, Abdomen/GI: Negative for abdominal pain, nausea, vomiting, diarrhea, and constipation, : Negative for injury, bleeding, discharge, and swelling, Skin: Negative for injury, rash, and discoloration, Neuro: Negative for headache, weakness, numbness, tingling, and seizure. 20:15 Back: Positive for decreased range of motion, pain at rest. 20:15 MS/extremity: Positive for decreased range of motion, pain, of the right hand and left hand. Exam: 20:15 Constitutional: This is a well developed, well nourished patient who is awake, alert, marbella and in no acute distress. Head/Face: Normocephalic, atraumatic. Eyes: Pupils equal round and reactive to light, extra-ocular motions intact. Lids and lashes normal. Conjunctiva and sclera are non-icteric and not injected. Cornea within normal limits. Periorbital areas with no swelling, redness, or edema. ENT: Nares patent. No nasal discharge, no septal abnormalities noted. Tympanic membranes are normal and external auditory canals are clear. Oropharynx with no redness, swelling, or masses, exudates, or evidence of obstruction, uvula midline. Mucous membranes moist. Chest/axilla: Normal chest wall appearance and motion. Nontender with no deformity. No lesions are appreciated. Cardiovascular: Regular rate and rhythm with a normal S1 and S2. No gallops, murmurs, or rubs. Normal PMI, no JVD. No pulse deficits. Abdomen/GI: Soft, non-tender, with normal bowel sounds. No distension or tympany. No guarding or rebound. No evidence of tenderness throughout. Back: No spinal tenderness. No costovertebral tenderness. Full range of motion. Skin: Warm, dry with normal turgor. Normal color with no rashes, no lesions, and no evidence of cellulitis. Neuro: Awake and alert, GCS 15, oriented to person, place, time, and situation. Cranial nerves II-XII grossly intact. Motor strength 5/5 in all extremities. Sensory grossly intact. Cerebellar exam normal. Normal gait. 20:15 Neck: External neck: is normal, no acute changes, C-spine: no acute changes, Thyroid: appears normal, no acute changes, Trachea: is midline with no obvious abnormalities, ROM/movement: is normal, no acute changes. Vital Signs: 19:32 BP 121 / 74; Pulse 98; Resp 16; Temp 98.6; Pulse Ox 100% ; Weight 71.21 kg; Height 5 iw ft. 6 in. (167.64 cm); Pain 8/10; 21:00 BP 122 / 70; Pulse 78; Resp 14; Pulse Ox 99% on R/A; Pain 3/10; ls4 19:32 Body Mass Index 25.34 (71.21 kg, 167.64 cm) iw MDM: 19:40 Patient medically screened. [facility] 20:15 Data reviewed: vital signs, nurses notes, lab test result(s), radiologic studies, CT [facility] scan, plain films. 04/29 20:53 Order name: Urine Dipstick--Ancillary (enter results); Complete Time: 21:45 04/29 20:53 Order name: Test Urine - POC; Complete Time: 21:45 04/29 20:14 Order name: Wrist Right 3 View XRAY; Complete Time: 21:45 [facility] 04/29 20:14 Order name: Hand Left 3 View XRAY; Complete Time: 21:45 [facility] 04/29 20:14 Order name: CT Traumagram (Head C Spine CAP wo con) [facility] 04/29 20:14 Order name: Chest Single View XRAY; Complete Time: 21:45 [facility] 04/29 20:14 Order name: Urine Dipstick-Ancillary (obtain specimen); Complete Time: 20:34 [facility] 04/29 20:14 Order name: Urine Test (obtain specimen); Complete Time: 20:34 [facility] 04/29 20:27 Order name: Splint - Volar Wrist Splint: cock up, left; Complete Time: 21:34 [facility] 04/29 20:27 Order name: Ice pack; Complete Time: 21:34 [facility] Administered Medications: 20:34 Drug: Drain 10 mg-325 mg 1 tabs Route: PO; ls4 21:00 Follow up: Response: No adverse reaction; Marked relief of symptoms ls4 Disposition: 04/29/19 21:48 Discharged to Home. Impression: Fall (on) (from) other stairs and steps, Contusion of left hand, Contusion of right wrist, Strain of muscle and tendon of back wall of thorax, Strain of muscle, fascia and tendon at neck level. - Condition is Stable. - Discharge Instructions: Back Pain, Adult, Hand Contusion, Muscle Strain, Wrist Pain, Wrist Splint, Wrist Splint, Jbxd-ii-Eerx, Hand Contusion, Qhiy-zb-Nxdb, Cervical Sprain, Xjhh-ly-Gsty, Back Pain, Adult, Jbel-ks-Avur, Wrist Pain, Kmcd-xr-Ujys, Muscle Strain, Ajrq-yj-Ygsi. - Prescriptions for Ibuprofen 600 mg Oral Tablet - take 1 tablet by ORAL route every 6 hours As needed take with food; 30 tablet. Skelaxin 800 mg Oral Tablet - take 1 tablet by ORAL route every 6 hours As needed; 40 tablet. Tylenol- Codeine #3 300-30 mg Oral Tablet - take 2 tablet by ORAL route every 6 hours As needed; 30 tablet. - Medication Reconciliation Form, Thank You Letter, Antibiotic Education, Prescription Opioid Use form. - Follow up: Private Physician; When: 2 - 3 days; Reason: Recheck today's complaints, Continuance of care, Re-evaluation by your physician. - Problem is new. - Symptoms have improved. Signatures: Dispatcher [employer] EDMatt Sanderson MD MD cha Williams, Irene, RN RN iw Brinda Tan RN RN ls4 Corrections: (The following items were deleted from the chart) 22:41 21:48 04/29/2019 21:48 Discharged to Home. Impression: Fall (on) (from) other stairs ls4 and steps; Contusion of left hand; Contusion of right wrist; Strain of muscle and tendon of back wall of thorax; Strain of muscle, fascia and tendon at neck level. Condition is Stable. Discharge Instructions: Back Pain, Adult, Muscle Strain, Cervical Sprain, Zaub-vr-Pahz, Back Pain, Adult, Hitw-tu-Jaob, Muscle Strain, Nooh-as-Kmhb, Hand Contusion, Wrist Pain, Wrist Splint, Wrist Splint, Ygjk-oh-Tlfh, Hand Contusion, Tnfd-eq-Emgq, Wrist Pain, Ddec-nm-Qjyo. Prescriptions for Ibuprofen 600 mg Oral Tablet - take 1 tablet by ORAL route every 6 hours As needed take with food; 30 tablet, Skelaxin 800 mg Oral Tablet - take 1 tablet by ORAL route every 6 hours As needed; 40 tablet, Tylenol-Codeine #3 300-30 mg Oral Tablet - take 2 tablet by ORAL route every 6 hours As needed; 30 tablet. and Forms are Medication Reconciliation Form, Thank You Letter, Antibiotic Education, Prescription Opioid Use. Follow up: Private Physician; When: 2 - 3 days; Reason: Recheck today's complaints, Continuance of care, Re-evaluation by your physician. Problem is new. Symptoms have improved. marbella
--- NOTE | 2019-05-02 12:02 | RAD REPORT ---
EXAM DESCRIPTION: Ct Head and Cervical Spine Without Intravenous Contrast CT Chest, Abdomen and Pelvis Without Intravenous Contrast CLINICAL HISTORY: The patient is 38 years old and is Female; PAIN TECHNIQUE: Axial computed tomography images of the head and cervical spine as well as chest, abdomen and pelvis without intravenous contrast. Sagittal and coronal reformatted images were created and reviewed. This CT exam was performed using one or more of the following dose reduction techniques: automated exposure control, adjustment of the mA and/or kV according to patient size, and/or use of iterative reconstruction technique. DLP: 1722 mGy*cm COMPARISON: CTA chest dated 10/14/[address] abdomen and pelvis dated 09/26/2018. FINDINGS: HEAD: No acute intracranial hemorrhage. No extra-axial collection. No mass effect or herniation. No hydro cephalus or herniation. Paranasal sinuses are clear. Mastoid air cells are well pneumatized. Globes a nd orbits are within normal limits. CERVICAL SPINE: C5 7 ACDF changes. No fracture. No subluxation. Disc spaces are preserved. Paraspinal soft tissues are unremarkable. CHEST: LUNGS: Unremarkable. No mass. No consolidation. PLEURAL SPACE: Unremarkable. No significant effusion. No pneumothorax. HEART: Unremarkable. No cardiomegaly. No significant pericardial effusion. THYROID: Visualized thyroid is normal. ABDOMEN: LIVER: Unremarkable. GALLBLADDER AND BILE DUCTS: Few layering gallstones in the gallbladder. No ductal dilatation. No p ericolic cystic fluid. PANCREAS: Unremarkable. No ductal dilation. SPLEEN: Unremarkable. No splenomegaly. ADRENALS: Unremarkable. No mass. KIDNEYS AND URETERS: Unremarkable. No obstructing stones. No hydronephrosis. STOMACH AND BOWEL: Unremarkable. No obstruction. No mucosal thickening. PELVIS: APPENDIX: The appendix is seen and is within normal limits BLADDER: Unremarkable. No stones. REPRODUCTIVE: Retroverted uterus with intrauterine contraceptive device. CHEST, ABDOMEN and PELVIS: INTRAPERITONEAL SPACE: Epigastric post surgical changes. No significant fluid collection. BONES/JOINTS: Unremarkable. No acute fracture. No dislocation. SOFT TISSUES: Small fat-containing of medical hernia. VASCULATURE: Unremarkable. No aortic aneurysm. LYMPH NODES: Unremarkable. No enlarged lymph nodes. IMPRESSION: 1. No acute intracranial abnormality. 2. C5-7 ACDF. No acute cervical spine fracture or subluxation. 3. No acute intrathoracic, abdominal pelvis abnormality. 4. 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 5. Retroverted uterus with intrauterine contraceptive device. Electronically signed by: Santos Dempsey DO 04/29/2019 9:33 PM COMPUTER SUPPORT ANALYST Due to temporary technical issues with the PACS/Fluency reporting system, reports are being signed by the in house radiologist as a courtesy to ensure prompt reporting. The interpreting radiologist is f ully responsible for the content of the report.
== END 2019-04-29 22:41 | disposition home or self-care (01) ==
LOC: ER 19:16
DX: S16.1XXA Strain of muscle, fascia and tendon at neck level, initial encounter (principal); S29.012A Strain of muscle and tendon of back wall of thorax, initial encounter; S60.222A Contusion of left hand, initial encounter; S60.211A Contusion of right wrist, initial encounter; W10.9XXA Fall (on) (from) unspecified stairs and steps, initial encounter; Y93.9 Activity, unspecified; Y92.9 Unspecified place or not applicable; Z88.8 Allergy status to other drugs, medicaments and biological substances
CPT/HCPCS: 70450; 71045; 71250; 72125; 81003; 81025; 99283

== ENCOUNTER 2020-03-03 17:09 | Emergency (ER) | payer OTHER ==
--- OUTSIDE RECORDS SUMMARY | 2020-03-03 17:11 | XMS REPORT | Continuity of Care Document ---
:1980 Author Organization [facility] t Address [address] [place] [address] Care Team Providers Name Role Phone Unavailable Unavailable Unavailable Payers Payer Name Policy Type Policy Number Effective Date Expiration Date S ource Problems Condition Condition Condition Status Onset Resolution Last Treating Co mments Source Name Details Category Date Date Treatment Clinician Date History of History of Problem Active [facility] abnormal abnormal [facility] cervical [facility] Pap smear Pap smear [facility] IUD IUD Problem Active [facility] (intrauter (intrauter Trinh kes - ine ine [facility] device) in device) in l place [facility] Vaginal Vaginal Problem Active [facility] symptom symptom [facility] HSV HSV Diagnosis Active [facility] (herpes (herpes [facility] - simplex simplex [facility] virus) virus) l anogenital anogenital Ou tpati infection infection ent Clinics History of History of Diagnosis Active [facility] shingles shingles [facility] Allergies, Adverse Reactions, Alerts Allergy Allergy Status Severity Reaction(s) Onset Inactive Treating Comm ents Source Name Type Date Date Clinician No Known DA Active [facility] Allergie 12-16 [facility] s 00:00: d 00 [facility] amitript Adverse Active Info Not [facility] y[facility] Reaction Available [facility] Medications Ordered Filled Start Stop Current Ordering Indication Dosage Frequency Signature Comments Components Source Medication Medication Date Date Medication? Clinician (SIG) Name Name Valacyclovi Valacyclovi 2018- No Caitlin [address] [facility] r HCl r HCl 09-01 Floyd [facility]: [facility] Mirena (52 Mirena (52 Yes Caitlin not [facility] MG) MG) Floyd defined [facility] Trazodone Trazodone Yes Caitlin not [facility] HCl HCl Floyd defined [facility] Procedures This patient has no known procedures. Encounters Start End Encounter Admission Attending Care Care Encounter Source Date/Time Date/Time Type Type Clinicians Facility Department ID 2017-09-01 2017-09-01 Outpatient Apolinar Jiangt [id number] [facility]:15[facility]00 11[facility] 2017-08-19 2017-08-19 [place] [place] [id number] [facility] 16:51:00 16:51:00 [facility] 2017-08-11 2017-08-11 [place] [place] [id number] [facility] 13:45:00 13:45:00 [facility] 2017-07-21 2017-07-21 [place] [place] [id number] [facility] 10:00:00 10:00:00 [facility] Results This patient has no known results.
[2020-03-03 18:08] LABS: Absolute Lymphocytes (CBC) 2.5 K/uL (0.7-4.9); Basophils % 1.1 % (0-1.3); Hematocrit 39.1 % (36.0-45.0); Lymphocytes % 26.2 % (15.3-44.8); MPV 9.1 fL (7.6-11.3); RBC Red Blood Cell Count 4.52 M/uL (3.86-4.86)
[2020-03-03] MEDS ORDERED: NA CHLORIDE 0.9% 500 ML ONE (18:08)
[2020-03-03] MEDS ORDERED: METOCLOPRAMIDE 10 MG/2mL INJ ONE (18:08)
[2020-03-03] MEDS ORDERED: DIPHENHYDRAMINE 50 MG/ML VIAL ONE (18:08)
[2020-03-03 18:29] LABS: ALT/SGPT 14 U/L (12-78); AST/SGOT 20 U/L (15-37); Albumin 3.4 g/dL (3.4-5.0); Alkaline Phosphatase 63 U/L (45-117); BUN Blood Urea Nitrogen 11 mg/dL (7-18); Bicarbonate 27 mmol/L (21-32); Bilirubin Direct < 0.1 mg/dL (0-0.2); Bilirubin Total 0.2 mg/dL (0.2-1.0); Glucose Level 91 mg/dL (74-106); Lipase 125 U/L (73-393); Potassium 4.2 mmol/L (3.5-5.1); Protein, Total 6.8 g/dL (6.4-8.2); Sodium Level 140 mmol/L (136-145)
[2020-03-03 18:48] LABS: Urine Blood NEGATIVE (NEG); Urine Glucose NEGATIVE (NEG); Urine Protein NEGATIVE (NEG); Urine Specific Gravity 1.025 (1.005-1.030)
--- NOTE | 2020-03-03 19:02 | RAD REPORT ---
EXAM DESCRIPTION: CTAbdomen Pelvis W Contrast - 03/03/2020 6:56 pm CLINICAL HISTORY: Abdominal pain. generalized abdominal pain COMPARISON: Abdomen Pelvis W Contrast dated 09/26/2018 TECHNIQUE: Biphasic CT imaging of the abdomen and pelvis was performed with 100 ml non-ionic IV cont rast. All CT scans are performed using dose optimization technique as appropriate and may include automated exposure control or mA/KV adjustment according to patient size. FINDINGS: The lung bases are clear. Gastric bypass noted. The liver, spleen, pancreas, adrenal glands and kidneys are within normal limits. No bowel obstruction, free air, free fluid or abscess. The appendix is normal. No evidence of signi ficant lymphadenopathy. No suspicious bony findings. IUD is present in the uterus. IMPRESSION: No acute intra-abdominal or pelvic finding.
[2020-03-03] MEDS ORDERED: DICYCLOMINE HCL 10 MG CAP ONE (20:06)
--- NOTE | 2020-03-03 20:17 | ER ---
Nurse's Notes [facility] Name: Sarmad Kaur Age: 39 yrs Sex: Female : 1980 Arrival Date: 03/03/2020 Time: 17:11 Bed 20 Private MD: Diagnosis: Generalized abdominal pain Presentation: 03/03 17:18 Chief complaint: Lower abdominal pain since last night. Denies V/D. Reports regular hb bowel habits. Coronavirus screen: At this time, the client does not indicate any symptoms associated with coronavirus-19. Ebola Screen: No symptoms or risks identified at this time. Initial Sepsis Screen: Does the patient meet any 2 criteria? HR > 90 bpm. No. Patient's initial sepsis screen is negative. Does the patient have a suspected source of infection? No. Patient's initial sepsis screen is negative. Risk Assessment: Do you want to hurt yourself or someone else? Patient reports no desire to harm self or others. Onset of symptoms was March 02, 2020. 17:18 Method Of Arrival: Ambulatory hb 17:18 Acuity: PEYTON 3 hb Historical: - Allergies: 17:21 Amitriptyline; hb - PMHx: 17:21 Depression; HYPOGLYCEMIA; Migraines; neuropathy; T10-S1 Herniated/Bulging Disc; hb - PSHx: 17:21 ACDF; Tubal ligation; hb - Immunization history:: Adult Immunizations up to date. - Social history:: Smoking status: Patient denies any tobacco usage or history of. Screenin:25 Abuse screen: Denies threats or abuse. Denies injuries from another. Nutritional ca1 screening: No deficits noted. Tuberculosis screening: No symptoms or risk factors identified. Fall Risk IV access (20 points). Assessment: 17:25 General: Appears in no apparent distress. comfortable, Behavior is calm, cooperative, ca1 appropriate for age. Pain: Complains of pain in right lower quadrant and left lower quadrant Pain does not radiate. Pain currently is 9 out of 10 on a pain scale. Quality of pain is described as crampy, Pain began 1 day ago. Is intermittent. Neuro: Level of Consciousness is awake, alert, obeys commands, Oriented to person, place, time, situation. Cardiovascular: Heart tones S1 S2 present Capillary refill < 3 seconds Patient's skin is warm and dry. Respiratory: Airway is patent Respiratory effort is even, unlabored, Respiratory pattern is regular, symmetrical, Breath sounds are clear bilaterally. GI: Abdomen is round non-distended, Bowel sounds present X 4 quads. Abd is soft and non tender X 4 quads. : No signs and/or symptoms were reported regarding the genitourinary system. EENT: No signs and/or symptoms were reported regarding the EENT system. Derm: Skin is intact, is healthy with good turgor, Skin is pink, warm \T\ dry. Musculoskeletal: Circulation, motion, and sensation intact. Capillary refill < 3 seconds. 18:26 Reassessment: Patient appears in no apparent distress at this time. Patient and/or ca1 family updated on plan of care and expected duration. Pain level reassessed. Patient is alert, oriented x 3, equal unlabored respirations, skin warm/dry/pink. 19:52 Reassessment: Patient reports continued lower abdominal cramping, no relief from lp1 medications administered prior; Provider notified. 20:38 Reassessment: Patient appears in no apparent distress at this time. Patient states some lp1 lower abdominal pain relief at this time Patient states feeling better. Vital Signs: 17:18 BP 116 / 74; Pulse 98; Resp 16; Temp 97.7; Pulse Ox 100% on R/A; Pain 10/10; hb 18:26 BP 95 / 59; Pulse 78; Resp 16 S; Pulse Ox 100% on R/A; ca1 19:45 BP 103 / 69; Pulse 77; Resp 16; Pulse Ox 99% on R/A; Pain 7/10; lp1 ED Course: 17:11 Patient arrived in ED. ds1 17:20 Triage completed. hb 17:21 Arm band placed on. hb 17:22 Hugo Galindo PA is PHCP. jmm 17:22 Joaquín Webber MD is Attending Physician. jmm 17:25 Patient has correct armband on for positive identification. Placed in gown. Bed in low ca1 position. Call light in reach. Side rails up X2. Pulse ox on. NIBP on. Warm blanket given. 17:35 Sona Dobbs, RN is Primary Nurse. ca1 17:48 No provider procedures requiring assistance completed. Initial lab(s) drawn, by hi, ca1 sent to lab. Inserted saline lock: 20 gauge in left antecubital area, using aseptic technique. Blood collected. 18:56 CT Abd/Pelvis - PO and IV Contrast In Process Unspecified. EDMS 20:16 Mona Mcbride MD is Referral Physician. jmm 20:16 Amarjit Xie MD is Referral Physician. [facility] 20:38 IV discontinued, No redness/swelling at site. Pressure dressing applied. lp1 Administered Medications: 17:50 Drug: diphenhydrAMINE 12.5 mg Route: IVP; Site: left antecubital; ca1 19:54 Follow up: Response: No change in condition lp1 17:52 Drug: NS 0.9% 500 ml Route: IV; Rate: bolus; Site: left antecubital; ca1 19:54 Follow up: IV Status: Completed infusion; IV Intake: 500ml lp1 17:54 Drug: Reglan 20 mg Route: IVP; Site: left antecubital; ca1 19:54 Follow up: Response: No change in condition lp1 20:01 Drug: Bentyl 20 mg Route: PO; lp1 20:38 Follow up: Response: No adverse reaction; Pain is decreased lp1 Intake: 19:54 IV: 500ml; Total: 500ml. lp1 Outcome: 20:17 Discharge ordered by MD. [facility] 20:38 Discharged to home ambulatory. lp1 20:38 Condition: good 20:38 Discharge instructions given to patient, Instructed on discharge instructions, follow up and referral plans. medication usage, Demonstrated understanding of instructions, follow-up care, medications, Prescriptions given X 2. 20:39 Patient left the ED. lp1 Signatures: Dispatcher [employer] EDMS Hugo Galindo PA PA jmm Sanford, Demi ds1 Arianna Cason RN RN lp1 Cely Stern RN RN Sona Dobbs RN RN ca1
--- NOTE | 2020-03-03 20:18 | EDPHYS ---
Physician Documentation [facility] Name: Sarmad Kaur Age: 39 yrs Sex: Female : 1980 Arrival Date: 03/03/2020 Time: 17:11 Bed 20 Private MD: ED Physician Joaquín Webber HPI: 03/03 17:18 This 39 yrs old Black Female presents to ER via Ambulatory with complaints of Abdominal jmm Pain. 17:18 The patient presents with abdominal pain. Onset: The symptoms/episode began/occurred jmm gradually, 1 day(s) ago. The symptoms do not radiate. Associated signs and symptoms: Pertinent negatives: diarrhea, fever, vomiting. The symptoms are described as crampy. Modifying factors: The symptoms are alleviated by nothing, the symptoms are aggravated by drinking. The patient has not experienced similar symptoms in the past. Historical: - Allergies: 17:21 Amitriptyline; hb - PMHx: 17:21 Depression; HYPOGLYCEMIA; Migraines; neuropathy; T10-S1 Herniated/Bulging Disc; hb - PSHx: 17:21 ACDF; Tubal ligation; hb - Immunization history:: Adult Immunizations up to date. - Social history:: Smoking status: Patient denies any tobacco usage or history of. ROS: 17:18 Constitutional: Negative for fever, chills, and weight loss, Cardiovascular: Negative jmm for chest pain, palpitations, and edema, Respiratory: Negative for shortness of breath, cough, wheezing, and pleuritic chest pain. 17:18 Abdomen/GI: Positive for abdominal pain. 17:18 All other systems are negative. Exam: 17:18 Constitutional: This is a well developed, well nourished patient who is awake, alert, jmm and in no acute distress. Head/Face: atraumatic. Eyes: EOMI, no conjunctival erythema appreciated ENT: Moist Mucus Membranes Neck: Trachea midline, Supple Chest/axilla: Normal chest wall appearance and motion. Cardiovascular: Regular rate and rhythm. No edema appreciated Respiratory: Normal respirations, no respiratory distress appreciated Abdomen/GI: Non distended, soft Back: Normal ROM Skin: General appearance color normal MS/ Extremity: Moves all extremities, no obvious deformities appreciated, no edema noted to the lower extremities Neuro: Awake and alert, normal gait Psych: Behavior is normal, Mood is normal, Patient is cooperative and pleasant Vital Signs: 17:18 BP 116 / 74; Pulse 98; Resp 16; Temp 97.7; Pulse Ox 100% on R/A; Pain 10/10; hb 18:26 BP 95 / 59; Pulse 78; Resp 16 S; Pulse Ox 100% on R/A; ca1 19:45 BP 103 / 69; Pulse 77; Resp 16; Pulse Ox 99% on R/A; Pain 7/10; lp1 MDM: 17:24 Patient medically screened. [facility] 20:11 Data reviewed: vital signs, nurses notes, lab test result(s), radiologic studies, CT [facility] scan. 20:11 Counseling: I had a detailed discussion with the patient and/or guardian regarding: the [facility] historical points, exam findings, and any diagnostic results supporting the discharge/admit diagnosis, lab results, radiology results, the need for outpatient follow up, to return to the emergency department if symptoms worsen or persist or if there are any questions or concerns that arise at home. ED course: Pain is relieved in the ED. Possibly ulcer vs ibd. Patient advised to follow up with GI for further evaluation. Patient understood and agrees with the plan of care. . 03/03 17:37 Order name: Basic Metabolic Panel [facility] 03/03 17:37 Order name: CBC with Diff [facility] 03/03 17:37 Order name: Hepatic Function [facility] 03/03 17:37 Order name: Lipase; Complete Time: 19:07 [facility] 03/03 17:38 Order name: Basic Metabolic Panel; Complete Time: 19:07 [facility] 03/03 17:38 Order name: CBC with Automated Diff; Complete Time: 19:07 [facility] 03/03 17:38 Order name: Liver (Hepatic) Function; Complete Time: 19:07 [facility] 03/03 17:38 Order name: CT Abd/Pelvis - PO and IV Contrast; Complete Time: 19:07 [facility] 03/03 18:02 Order name: Urine Dipstick--Ancillary (enter results); Complete Time: 19:07 03/03 18:02 Order name: Urine --Ancillary (enter results); Complete Time: 19:07 03/03 17:37 Order name: IV Saline Lock; Complete Time: 17:51 [facility] 03/03 17:37 Order name: Labs collected and sent; Complete Time: 17:51 [facility] 03/03 17:37 Order name: Urine Dipstick-Ancillary (obtain specimen); Complete Time: 17:51 [facility] 03/03 17:37 Order name: Urine Test (obtain specimen); Complete Time: 17:51 [facility] Administered Medications: 17:50 Drug: diphenhydrAMINE 12.5 mg Route: IVP; Site: left antecubital; ca1 19:54 Follow up: Response: No change in condition lp1 17:52 Drug: NS 0.9% 500 ml Route: IV; Rate: bolus; Site: left antecubital; ca1 19:54 Follow up: IV Status: Completed infusion; IV Intake: 500ml lp1 17:54 Drug: Reglan 20 mg Route: IVP; Site: left antecubital; ca1 19:54 Follow up: Response: No change in condition lp1 20:01 Drug: Bentyl 20 mg Route: PO; lp1 20:38 Follow up: Response: No adverse reaction; Pain is decreased lp1 Disposition: 03/04 07:14 Co-signature as Attending Physician, Joaquín Webber MD. rn Disposition: 03/03/20 20:17 Discharged to Home. Impression: Generalized abdominal pain. - Condition is Stable. - Discharge Instructions: Abdominal Pain, Adult. - Prescriptions for Zofran ODT 4 mg Oral tablet,disintegrating - place 1 tablet by TRANSLINGUAL route every 4-6 hours; 20 tablet. Bentyl 20 mg Oral Tablet - take 1 tablet by ORAL route every 6 hours As needed; 20 tablet. - Medication Reconciliation Form, Thank You Letter, Antibiotic Education, Prescription Opioid Use form. - Follow up: Mona Mcbride MD; When: 2 - 3 days; Reason: Recheck today's complaints, Continuance of care, Re-evaluation by your physician. Follow up: Amarjit Xie MD; When: 2 - 3 days; Reason: Recheck today's complaints, Continuance of care, Re-evaluation by your physician. Signatures: Dispatcher [employer] EDMS Hugo Galindo PA PA Joaquín Faith MD MD rn Pena, Laura, RN RN lp1 Cely Stern RN RN hb Sona Dobbs RN RN ca1 Corrections: (The following items were deleted from the chart) 11/28 20:39 20:17 03/03/2020 20:17 Discharged to Home. Impression: Generalized abdominal pain. lp1 Condition is Stable. Forms are Medication Reconciliation Form, Thank You Letter, Antibiotic Education, Prescription Opioid Use. Follow up: Mona Mcbride; When: 2 - 3 days; Reason: Recheck today's complaints, Continuance of care, Re-evaluation by your physician. Follow up: Amarjit Xie; When: 2 - 3 days; Reason: Recheck today's complaints, Continuance of care, Re-evaluation by your physician. bogdan
[2020-03-03 23:58] VITALS: TEMP 97.7
[2020-03-04 00:35] VITALS: BP 103/69; O2SAT 99
== END 2020-03-03 20:39 | disposition home or self-care (01) ==
LOC: ER 17:09
DX: R10.84 Generalized abdominal pain (principal); Z88.8 Allergy status to other drugs, medicaments and biological substances
CPT/HCPCS: 96361; 85025; 80048; 36415; 81025; 80076; 81003; 83690; 74177; 96375; 96374; 99284; Q9967; J2765; J1200; J7040

== ENCOUNTER 2021-11-07 11:47 | Emergency (ER) | payer OTHER ==
--- OUTSIDE RECORDS SUMMARY | 2021-11-07 11:51 | XMS REPORT | Continuity of Care Document ---
:1980 Author Organization [facility] t Address [address] [place] [address] Care Team Providers Name Role Phone Sanju Pate MD Primary Care Physician [phone] Rebeca Rollins MD Attending Clinician REBECA ROLLINS Attending Clinician Unavailable Sanju Pate Attending Clinician Unavailable UNDEFINED Attending Clinician Unavailable Sanju Pate Admitting Clinician Unavailable Physician, No Primary or Family Admitting Clinician Unavaila ble Payers Payer Name Policy Type Policy Number Effective Date Expiration Date S ource Problems Condition Condition Condition Status Onset Resolution Last Treating Co mments Source Name Details Category Date Date Treatment Clinician Date Left foot Left foot Disease Active Uni vers pain pain 6-20 ity of 00:00: [address] Sciatica Sciatica Disease Active Unive rs 6-14 ity of 00:00: [place] 00 [facility] Chronic Chronic Disease Active Univers pain pain 6-14 ity of 00:00: Medical Branch History of History of Problem Active C ommon abnormal abnormal [facility] cervical cervical - [facility] Pap smear Pap smear [facility] IUD IUD Problem Active Common (intrauter (intrauter Sp steve ine ine - [facility] device) in device) in place [facility] Vaginal Vaginal Problem Active Common symptom symptom [facility] 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 anogenital [facility] infection infection [facility] History of History of Diagnosis Active Common shingles shingles [facility] Allergies, Adverse Reactions, Alerts Allergy Allergy Status Severity Reaction(s) Onset Inactive Treating Comm ents Source Name Type Date Date Clinician Zolpidem Propensi Active Hallucinatio Univers ty to ns 4-22 ity of adverse 00:00: [place] reaction Medical Branch ZOLPIDEM DRUG Active Hallucinates Un wilver INGREDI 4-22 ity of 00:00: [place] [facility] Amitript Propensi Active Palpitations Univers yline ty to 6-14 ity of adverse 00:00: [place] reaction Medical s Branch AMITRIPT DRUG Active Palpitations Un wilver YLINE INGREDI 6-14 ity of 00:00: Medical Branch No Known DA Active U [facility] Allergie 9 Clear s 00:00: [place] 00 [facility] No Known DA Active U [facility] Allergie 12-16 Clear s 00:00: [place] [facility] Duloxeti Propensi Active Hallucinatio Univers ne ty to ns 3-22 ity of adverse 00:00: [place] reaction Medical s to [place] drug DULOXETI DRUG Active Hallucinates Un wilver NE INGREDI 3-22 ity of 00:00: [place] [facility] SOMA DA Active U [facility] 4-02 Clear 00:00: [place] 00 [facility] CIPRO DA Active U 2008-0 [facility] 4-02 Clear 00:00: [place] 00 [facility] No Known DA Active U [facility] Contrast 4-02 Clear Allergie 00:00: [place] [facility] No Known DA Active U [facility] Food 07-06 Clear Allergie 00:00: s [facility] No Known DA Active U [facility] Other 07-06 Clear Allergie 00:00: [place] [facility] carisopr DA Active U [facility] odol 07-05 Clear 00:00: [facility] ciproflo DA Active U [facility] xacin 07-05 Clear 00:00: [facility] amitript Adverse Active Info Not Commo n yline Reaction Available Sp[facility] t - [facility] Social History Social Habit Start Date Stop Date Quantity Comments Source Exposure to 2021-09-13 2021-09-23 Not sure [facility] SARS-CoV-2 (event) 00:00:00 10:14:00 [facility] Alcohol intake 2021-09-23 2021-09-23 .43 /d [facility] 00:00:00 00:00:00 [facility] Tobacco use and 2021 2021 Never used [facility] exposure 00:00:00 00:00:00 [facility] Sex Ass[birth year] At [birth year] [facility] 00:00:00 00:00:00 [facility] Smoking Status Start Date Stop Date Source Never smoker [facility] Medications Ordered Filled Start Stop Current Ordering Indication Dosage Frequency Signature Comments Components Source Medication Medication Date Date Medication? Clinician (SIG) Name Name ubrogepant Yes Take by [facility] ers (UBRELVY 07-26 mouth. ity of ORAL) 08:53: [place] [facility] [place] ubrogepant Yes Take by [facility] ers (UBRELVY 07-26 mouth. ity of ORAL) 08:53: [place] [facility] [place] betamethaso Yes Univer s ne 4-18 ity of dipropionat 00:00: [place] e 0.05 % 00 Medical cream Branch betamethaso Yes Univer s ne 4-18 ity of dipropionat 00:00: [place] e 0.05 % 00 Medical cream Branch buPROPion Yes Univers SR 100 mg 4-13 ity of SR tablet 00:00: [place] 00 [facility] clonazePAM 2021-0 Yes Univers 0.25 mg 4-13 ity of disintegrat 00:00: [place] ing tablet 00 Medical Branch propranoloL 2021-0 Yes Univer s 20 mg 4-13 ity of tablet 00:00: [place] [facility] QUEtiapine 2021-0 Yes Univers 50 mg 4-13 ity of tablet 00:00: [place] [address] Medical Branch buPROPion 2021-0 Yes Univers SR 100 mg 4-13 ity of SR tablet 00:00: [place] [address] Medical Branch clonazePAM 2021-0 Yes Univers 0.25 mg 4-13 ity of disintegrat 00:00: [place] ing tablet 00 Medical Branch propranoloL 2021-0 Yes Univer s 20 mg 4-13 ity of tablet 00:00: [place] [address] Medical Branch QUEtiapine 2021-0 Yes Univers 50 mg 4-13 ity of tablet 00:00: [place] [address] Medical Branch topiramate 2021-0 Yes Univers 50 mg 4-04 ity of tablet 00:00: [place] [address] Medical Branch topiramate 2021-0 Yes Univers 50 mg 4-04 ity of tablet 00:00: [place] [address] Medical Branch AIMOVIG 0 Yes Univers AUTOINJECTO 3-15 ity of R 70 mg/mL 00:00: [facility] 00 Medical Branch AIMOVIG 0 Yes Univers AUTOINJECTO 3-15 ity of R 70 mg/mL 00:00: [facility] 00 Medical Branch QUEtiapine 2021-0 Yes Univers 25 mg 2-15 ity of tablet 00:00: [place] [address] Medical Branch QUEtiapine 2021-0 Yes Univers 25 mg 2-15 ity of tablet 00:00: [place] [address] Medical Branch Valacyclovi Valacyclovi 2018-0 2018- No Caitlin 1 tablet Common r HCl r HCl 5-29 06-08 [place] [facility] 00:00: 00:00 - [facility] 00 :00 [facility] ibuprofen 2012- Yes 400mg Take 1 Tab U nivers (MOTRIN) 3-22 by mouth ity of 400 mg 00:00: every 8 [place] tablet 00 (eight) Medical hours as Branch needed for Pain (scale 1-3) with oral narcotics or Pain unrelieved by Tylenol. HYDROcodone 2012-0 Yes 1{tbl} Take 1 Tab Univers -acetaminop 3-22 by mouth ity of hen (NORCO) 00:00: every 8 Eddie as 5-325 mg 00 (eight) Medical tablet hours as Branch needed for Pain (scale 7-10) or Pain unrelieved by non-narcot ic analgesics . ibuprofen Yes 400mg Take 1 Tab U nivers (MOTRIN) 3-22 by mouth ity of 400 mg 00:00: every 8 [place] tablet 00 (eight) Medical hours as Branch needed for Pain (scale 1-3) with oral narcotics or Pain unrelieved by Tylenol. HYDROcodone Yes 1{tbl} Take 1 Tab Univers -acetaminop 3-22 by mouth ity of hen (NORCO) 00:00: every 8 Eddie as 5-325 mg 00 (eight) Medical tablet hours as Branch needed for Pain (scale 7-10) or Pain unrelieved by non-narcot ic analgesics . Mirena (52 Mirena (52 Yes Caitlin not Common MG) MG) Floyd defined [facility] Trazodone Trazodone Yes Caitlin not Co mmon HCl HCl [place] defined [facility] Vital Signs Vital Name Observation Time Observation Value Comments Source Systolic blood 2021-09-23 16:16:00 109 mm[Hg] [facility] Di[facility] blood 2021-09-23 16:16:00 65 mm[Hg] [facility] Heart rate 2021-09-23 16:16:00 71 /min [facility] Body temperature 2021-09-23 16:16:00 36.44 [facility] Body height 2021-09-23 16:16:00 165.1 cm [facility] Body weight 2021-09-23 16:16:00 73.029 kg [facility] BMI 2021-09-23 16:16:00 26.79 kg/m2 [facility] Oxygen saturation in 2021-09-23 16:16:00 95 /min [facility] Arterial blood by [facility] [place] [facility] Pulse oximetry Branch Procedures This patient has no known procedures. Encounters Start End Encounter Admission Attending Care Care Encounter Source Date/Time Date/Time Type Type Clinicians Facility Department ID 2021-09-24 2021-09-24 Telephone Ayo [facility] [id number] Univers 00:00:00 00:00:00 Rebeca CAAL [id number] it y of Levi CANCER [id number] [facility] - [id number] Med ical MDA 419 Branch 2021-09-23 2021-09-23 Office Ayo [facility] [id number] Univers 10:15:00 11:36:02 Visit Rebeca CAMERON [id number] i ty of [place] [id number] [facility] PROFESSIO [id number] Dc dical NAL 419 Branch BUILDING 2021-09-23 2021-09-23 Outpatient [facility] [id number] Univers 10:15:00 11:36:02 REBECA yenyy of [facility] 2020-09-12 2020-09-12 Outpatient EL [place] HCACL MILO LA4 [id number] [facility] 12:00:00 12:00:00 a Sanju [id number] [facility] 2020-09-04 2020-09-04 Outpatient EL [place] HCAPM MILO LA4 [id number] [facility] 12:00:00 12:00:00 Sanju nieto [id number] [facility] 2019-03-23 2019-03-23 Outpatient EL UNDEFINED HCAPM MILO [id number] [facility] 12:00:00 12:00:00 [id number] [facility] 2017-09-01 2017-09-01 Outpatient Apolinar Mcintosh [id number] Common 11:15:00 11:15:00 [facility] 2017-08-19 2017-08-19 [facility] [id number] Common 16:51:00 16:51:00 [facility] I [facility] 2017-08-11 2017-08-11 Outpatient Apolinar Mcintosh 13 [id number] Common 13:45:00 13:45:00 [facility] 2017-07-21 2017-07-21 [facility] [id number] Common 10:00:00 10:00:00 [facility] Results Test Description Test Time Test Comments Results Result Sourc e Comments - XR UGI W/O KUB 2008-07-07 08:36:00 [facility] 1980 Sex: F FAX: Sukumar Colmenares [phone] [place]: B St: UNK Name: SUKHF[facility] : 1980 Age/S: 27/F [address] [facility] Unit #: [id number] Loc: [place] [address] Phys: Sukumar Mejias MD Acct: [id number] Dis Date: Status: UNK PHONE #: [phone] Exam Date: 07/07/2008814 FAX #: [phone] Reason: UGI IN AM W/GASTROGGRAFFIN OR THIN BARIU EXAMS: CPT CODE: [id number] XR UGI W/O KUB 10104 HISTORY: Gastric bypass. No evidence of obstruction of the gastrojejunostomy. Free flow of contrast through the anastomotic site with mild edema and no evidence for leakage. IMPRESSION: No obstruction or leak at anastomotic site. at 0837 Reported and signed by: Matthew Marquez M.D. CC: Sukumar Mejias MD Technologist: SHEA DE LA CRUZ; STUDENT TECHNOLOGIST Trnscrd Date/Time/By: 07/07/2008 (0837) : By: [email or web address] Orig Print D/T: S: 07/07/2008 (0838) PAGE 1 Signed Report
[2021-11-07 12:57] LABS: Absolute Lymphocytes (CBC) 2.5 K/uL (0.7-4.9); Hematocrit 45.4 % (36.0-45.0); MCV 82.5 fL (80-100); MPV 8.9 fL (7.6-11.3)
[2021-11-07] MEDS ORDERED: KETOROLAC 30 MG/ML INJ ONE (13:00)
[2021-11-07] MEDS ORDERED: NA CHLORIDE 0.9% 100 ML ONE (13:00)
[2021-11-07] MEDS ORDERED: METHOCARBAMOL 1,000 MG/10 ML VIAL IV ONE (13:00)
[2021-11-07] MEDS ORDERED: NA CHLORIDE 0.9% 500 ML ONE (13:00)
[2021-11-07 13:14] LABS: Potassium 4.7 mmol/L (3.5-5.1); Troponin High Sensitivity 8.6 pg/mL (<58.9)
--- NOTE | 2021-11-07 13:56 | RAD REPORT ---
EXAM DESCRIPTION: RAD - Chest Single View - 11/07/2021 1:20 pm CLINICAL HISTORY: Chest pain COMPARISON: Portable 04/29/2019 TECHNIQUE: AP portable chest image was obtained 11/07/2021 1:20 pm . FINDINGS: Lungs are clear. Interstitial pattern matches comparison. No new piter mass or lymphadenopa thy. Heart and vasculature are normal. No measurable pleural effusion and no pneumothorax. No acute b nora abnormality seen. No acute aortic findings suspected. IMPRESSION: No acute cardiopulmonary process. No significant change from comparison study.
--- NOTE | 2021-11-07 14:33 | EDPHYS ---
Physician Documentation [facility] Name: Sarmad Kaur Age: 41 yrs Sex: Female : 1980 Arrival Date: 11/07/2021 Time: 11:51 Bed 13 Private MD: ED Physician Cong Min HPI: 11/08 08:45 This 41 yrs old Black Female presents to ER via EMS with complaints of Back pain/spasm. kdr 08:45 Patient was diagnosed with COVID about 6 days ago and since then has had increasing kdr pain in her upper right back. Mainly her spine and her scapula. Pain is spasm-like. He has not had this before. She appears nontoxic in the ED and not requiring emergent intervention. Onset: The symptoms/episode began/occurred suddenly, gradually, 3 day(s) ago. Severity of symptoms: At their worst the symptoms were moderate in the emergency department the symptoms are unchanged. The patient has not experienced similar symptoms in the past. The patient has not recently seen a physician. Historical: - Allergies: 11/07 12:06 Amitriptyline; jh6 12:06 Solu-Medrol; jh6 12:06 Hydrocodone-Ibuprofen; jh6 - Immunization history:: Adult Immunizations up to date. - Social history:: Smoking status: Patient denies any tobacco usage or history of. ROS: 11/08 08:45 Constitutional: Negative for fever, chills, and weight loss, Eyes: Negative for injury, kdr pain, redness, and discharge, ENT: Negative for injury, pain, and discharge, Neck: Negative for injury, pain, and swelling, Cardiovascular: Negative for chest pain, palpitations, and edema, Respiratory: Negative for shortness of breath, cough, wheezing, and pleuritic chest pain, Abdomen/GI: Negative for abdominal pain, nausea, vomiting, diarrhea, and constipation, : Negative for injury, bleeding, discharge, and swelling, MS/Extremity: Negative for injury and deformity, Skin: Negative for injury, rash, and discoloration, Neuro: Negative for headache, weakness, numbness, tingling, and seizure activity. Psych: Negative for depression, anxiety, suicide ideation, homicidal ideation, and hallucinations, Allergy/Immunology: Negative for hives, rash, and allergies, Endocrine: Negative for neck swelling, polydipsia, polyuria, polyphagia, and marked weight changes, Hematologic/Lymphatic: Negative for swollen nodes, abnormal bleeding, and unusual bruising. Back: Positive for pain at rest, pain with movement, of the right scapular area. Exam: 11/07 12:59 ECG was reviewed by the Attending Physician. kdr 11/08 08:45 Constitutional: This is a well developed, well nourished patient who is awake, alert, kdr and in no acute distress. Head/Face: Normocephalic, atraumatic. Eyes: Pupils equal round and reactive to light, extra-ocular motions intact. Lids and lashes normal. Conjunctiva and sclera are non-icteric and not injected. Cornea within normal limits. Periorbital areas with no swelling, redness, or edema. Neck: Trachea midline, no thyromegaly or masses palpated, and no cervical lymphadenopathy. Supple, full range of motion without nuchal rigidity, or vertebral point tenderness. No Meningismus. Chest/axilla: Normal chest wall appearance and motion. Nontender with no deformity. No lesions are appreciated. Cardiovascular: Regular rate and rhythm with a normal S1 and S2. No gallops, murmurs, or rubs. Normal PMI, no JVD. No pulse deficits. Respiratory: Lungs have equal breath sounds bilaterally, clear to auscultation and percussion. No rales, rhonchi or wheezes noted. No increased work of breathing, no retractions or nasal flaring. Abdomen/GI: Soft, non-tender, with normal bowel sounds. No distension or tympany. No guarding or rebound. No evidence of tenderness throughout. Skin: Warm, dry with normal turgor. Normal color with no rashes, no lesions, and no evidence of cellulitis. MS/ Extremity: Pulses equal, no cyanosis. Neurovascular intact. Full, normal range of motion. Neuro: Awake and alert, GCS 15, oriented to person, place, time, and situation. Cranial nerves II-XII grossly intact. Motor strength 5/5 in all extremities. Sensory grossly intact. Cerebellar exam normal. Normal gait. Psych: Awake, alert, with orientation to person, place and time. Behavior, mood, and affect are within normal limits. Back: pain, that is mild, that is moderate, of the right scapular area, ROM is normal, normal spinal alignment noted, CVA tenderness, is absent, vertebral tenderness, is not appreciated, muscle spasm, is appreciated in the right scapular area. Vital Signs: 11/07 12:04 BP 119 / 61; Pulse 90; Resp 20; Temp 98.1(TE); Pulse Ox 100% ; Weight 63.5 kg; Height 5 [facility] ft. 5 in. (165.10 cm); Pain 4/10; 14:22 BP 100 / 69; Pulse 68; Resp 17; Pulse Ox 99% on R/A; Pain 4/10; 6 15:15 BP 102 / 66; Pulse 72; Resp 16; Temp 98.2; Pulse Ox 100% ; Pain 0/10; 6 12:04 Body Mass Index 23.30 (63.50 kg, 165.10 cm) [facility] MDM: 14:32 Patient medically screened. [facility] 11/08 08:45 Data reviewed: vital signs, nurses notes, lab test result(s), radiologic studies. kdr Counseling: I had a detailed discussion with the patient and/or guardian regarding: the historical points, exam findings, and any diagnostic results supporting the discharge/admit diagnosis, lab results, radiology results, the need for outpatient follow up. ED course: Patient improved greatly with the interventions given. She was happy with the care provided the plan for discharge and follow-up. 11/07 12:37 Order name: Basic Metabolic Panel; Complete Time: 14:24 [facility] 11/07 12:37 Order name: CBC with Diff; Complete Time: 12:59 [facility] 11/07 12:37 Order name: CXR XRAY; Complete Time: 14:24 [facility] 11/07 12:37 Order name: NT PRO-BNP; Complete Time: 14:24 [facility] 11/07 12:37 Order name: Troponin HS; Complete Time: 14:24 [facility] 11/07 12:37 Order name: EKG; Complete Time: 12:38 [facility] 11/07 12:37 Order name: Cardiac monitoring; Complete Time: 13:17 [facility] 11/07 12:37 Order name: EKG - Nurse/Tech; Complete Time: 13:17 [facility] 11/07 12:37 Order name: IV Saline Lock; Complete Time: 13:17 [facility] 11/07 12:37 Order name: Labs collected and sent; Complete Time: 13:17 [facility] 11/07 12:37 Order name: O2 Per Protocol; Complete Time: 13:17 kdr 11/07 12:37 Order name: O2 Sat Monitoring; Complete Time: 13:17 kdr EC/04 12:59 Rate is 80 beats/min. Rhythm is regular, Sinus Rhythm with PACs. QRS [facility] is Normal. [place] kdr interval is normal. QRS interval is normal. QT interval is normal. Clinical impression: NSR w/ Non-specific ST/T Changes. Administered Medications: 13:05 Drug: NS 0.9% 500 ml Route: IV; Rate: bolus; Site: left antecubital; [facility] 13:06 Drug: Ketorolac 15 mg Route: IVP; Site: left antecubital; [facility] 13:06 Drug: Robaxin (methocarbamol) 1 grams Route: IVPB; Infused Over: 1 hrs; Site: left [facility] antecubital; Disposition Summary: 11/07/21 14:32 Discharge Ordered Location: Home kdr Problem: new kdr Symptoms: have improved kdr Condition: Stable kdr Diagnosis - Muscle spasm of back kdr - Shortness of breath kdr Followup: kdr - With: Private Physician - When: 2 - 3 days - Reason: If symptoms return, Further diagnostic work-up, Recheck today's complaints, Continuance of care, Re-evaluation by your physician Followup: kdr - With: Sanju Cheung MD - When: 2 - 3 days - Reason: If symptoms return, Further diagnostic work-up, Recheck today's complaints, Continuance of care, Re-evaluation by your physician Discharge Instructions: - Discharge Summary Sheet kdr - Muscle Cramps and Spasms kdr - Shortness of Breath, Adult, [id number] kdr Forms: - Medication Reconciliation Form kdr - Thank You Letter kdr - Prescription Opioid Use kdr - Work release form [facility] Prescriptions: - Ibuprofen 600 mg Oral Tablet - take 1 tablet by ORAL route every 6 hours As needed take with food; 16 tablet; kdr Refills: 0, Product Selection Permitted - Cyclobenzaprine 10 mg Oral Tablet - take 1 tablet by ORAL route every 8 hours As needed; 15 tablet; Refills: 0, kdr Product Selection Permitted - Tramadol 50 mg Oral Tablet - take 1 tablet by ORAL route every 6-8 hours As needed as needed in the evening kdr and at night for sleep; 12 tablet; Refills: 0, Product Selection Permitted Signatures: Dispatcher [employer] José Longin, MD MD kdr Raquel Wadsworth, RN RN jh6
--- NOTE | 2021-11-07 14:33 | ER ---
Nurse's Notes [facility] Name: Sarmad Kaur Age: 41 yrs Sex: Female : 1980 Arrival Date: 11/07/2021 Time: 11:51 Bed 13 Private MD: Diagnosis: Muscle spasm of back;Shortness of breath Presentation: 11/07 12:04 Chief complaint: EMS states: Dx with covid 5-6 days ago and noted a sharp muscle spasm jh6 in back and hyperventilation when EMS arrived on scene. Coronavirus screen: Vaccine status: Patient reports receiving the 2nd dose of the covid vaccine. Ebola Screen: Patient negative for fever greater than or equal to 101.5 degrees Fahrenheit, and additional compatible Ebola Virus Disease symptoms Patient denies exposure to infectious person. Patient denies travel to an Ebola-affected area in the 21 days before illness onset. Initial Sepsis Screen: Does the patient meet any 2 criteria? No. Patient's initial sepsis screen is negative. Does the patient have a suspected source of infection? No. Patient's initial sepsis screen is negative. Risk Assessment: Do you want to hurt yourself or someone else? Patient reports no desire to harm self or others. Onset of symptoms was November 07, 2021. 12:04 Method Of Arrival: EMS: [place] [address] 12:04 Acuity: [place] 3 jh6 Triage Assessment: 12:07 General: Appears uncomfortable, Behavior is cooperative, anxious. Pain: Complains of jh6 pain in back Pain currently is 5 out of 10 on a pain scale. Quality of pain is described as sharp, Pain began suddenly, Is continuous, Alleviated by repositioning. Respiratory: No deficits noted. Airway is patent Trachea midline Respiratory effort is even, unlabored, Respiratory pattern is regular, symmetrical, Breath sounds are clear bilaterally. Historical: - Allergies: 12:06 Amitriptyline; jh6 12:06 Solu-Medrol; 6 12:06 Hydrocodone-Ibuprofen; jh6 - Immunization history:: Adult Immunizations up to date. - Social history:: Smoking status: Patient denies any tobacco usage or history of. Screenin:10 Abuse screen: Denies threats or abuse. Denies injuries from another. Nutritional 6 screening: No deficits noted. Tuberculosis screening: No symptoms or risk factors identified. Fall Risk None identified. Assessment: 12:08 General: Appears pt appears slightly anxious and fingers cramping and unable to open on jh6 her own. pt instructed on slowing and counting breath to help with hyperventilation. . 13:00 Reassessment: Patient and/or family updated on plan of care and expected duration. Pain jh6 level reassessed. Patient is alert, oriented x 3, equal unlabored respirations, skin warm/dry/pink. pt resting with lights low and call light in reach. pt states that she is still having back pain but does not feel anxious Patient states feeling better. 14:10 Reassessment: No changes from previously documented assessment. resting with eyes jh6 closed at this time. 15:26 Reassessment: Patient and/or family updated on plan of care and expected duration. Pain jh6 level reassessed. Patient states feeling better. Patient states symptoms have improved. Pain: Denies pain. Vital Signs: 12:04 BP 119 / 61; Pulse 90; Resp 20; Temp 98.1(TE); Pulse Ox 100% ; Weight 63.5 kg; Height 5 jh6 ft. 5 in. (165.10 cm); Pain 4/10; 14:22 BP 100 / 69; Pulse 68; Resp 17; Pulse Ox 99% on R/A; Pain 4/10; jh6 15:15 BP 102 / 66; Pulse 72; Resp 16; Temp 98.2; Pulse Ox 100% ; Pain 0/10; jh6 12:04 Body Mass Index 23.30 (63.50 kg, 165.10 cm) 6 ED Course: 11:51 Patient arrived in ED. eb 12:04 Raquel Wadsworth, ISIDRA is Primary Nurse. jh6 12:06 Triage completed. jh6 12:07 Arm band placed on right wrist. Patient placed in the treatment room, on a stretcher, jh6 on oxygen, on train inspector, on pulse oximetry, Patient notified of wait time. 12:10 Call light in reach. Side rails up X 1. Adult w/ patient. jh6 12:19 Cong Min MD is Attending Physician. kdr 12:41 No provider procedures requiring assistance completed. jh6 13:21 CXR XRAY In Process Unspecified. EDMS 14:29 Sanju Cheung MD is Referral Physician. kdr 15:27 IV discontinued, intact, bleeding controlled, No redness/swelling at site. Pressure 6 dressing applied. Administered Medications: 13:05 Drug: NS 0.9% 500 ml Route: IV; Rate: bolus; Site: left antecubital; 6 13:06 Drug: Ketorolac 15 mg Route: IVP; Site: left antecubital; 6 13:06 Drug: Robaxin (methocarbamol) 1 grams Route: IVPB; Infused Over: 1 hrs; Site: left 6 antecubital; Medication: 12:41 VIS not applicable for this client. 6 Outcome: 14:32 Discharge ordered by . kdr 15:27 Discharged to home ambulatory. [facility] 15:27 Condition: improved 15:27 Discharge instructions given to patient, Instructed on discharge instructions, follow up and referral plans. Demonstrated understanding of instructions, follow-up care, medications, Prescriptions given X 3. 15:27 Patient left the ED. 6 Signatures: Dispatcher [employer] EDMS Cong Min MD MD kdr Botello, Elizabeth eb Hastedt, Jennifer, RN RN 6
[2021-11-07 15:38] VITALS: BP 102/66; TEMP 98.2; O2SAT 100
--- NOTE | 2021-11-08 15:10 | EKG ---
Test Date: 2021-11-07 Test Time: 12:53:37 Supervisor Fishing: PEDRO MEASUREMENT RESULTS: Intervals: Rate: 80 [place]: 106 QRSD: 86 QT: 338 QTc: [address] [place]: P: 81 [place]: 106 QRS: 56 T: 63 INTERPRETIVE STATEMENTS: Sinus rhythm with short [place] with premature atrial complexes Otherwise normal ECG Compared to ECG 10/14/2018 13:51:07 Atrial premature complex(es) now present Short [place] interval now present Sinus bradycardia no longer present Electronically Signed On 11-08-21 15:08:12 CDT by Stef Mcfadden
== END 2021-11-07 15:27 | disposition home or self-care (01) ==
LOC: ER 11:47
DX: M62.830 Muscle spasm of back (principal); R06.02 Shortness of breath; Z88.5 Allergy status to narcotic agent; Z88.8 Allergy status to other drugs, medicaments and biological substances
CPT/HCPCS: 93005; 85025; 80048; 36415; 84484; 83880; 71045; 96375; 96374; 99284; J7040; J2800

== ENCOUNTER 2022-08-19 10:23 | Emergency (ER) | payer OTHER ==
--- OUTSIDE RECORDS SUMMARY | 2022-08-19 10:27 | XMS REPORT | Continuity of Care Document ---
:1980 Author Organization [facility] t Address [address] [place] [address] [address] [place] [address] Care Team Providers Name Role Phone Sanju Pate MD Primary Care Physician [phone] Joanie Aguilar Attending Clinician JOANIE STARKEY Attending Clinician Unavailable Unknown, Attending Attending Clinician Unavailable RADIOLOGY Attending Clinician Unavailable Radiology Attending Clinician Unavailable LORENZA BARRIENTOS Attending Clinician Unavailable Lorenza Barrientos MD Attending Clinician JAMIE VANESSA Attending Clinician Unavailable Rebeca Rollins MD Attending Clinician REBECA ROLLINS Attending Clinician Unavailable Doctor Unassigned, [place] Attending Clinician Unavailable Falguni Best NP Attending Clinician FALGUNI BEST Attending Clinician Unavailable Sanju Pate Attending Clinician Unavailable UNDEFINED Attending Clinician Unavailable LISSY RICK Admitting Clinician Unavailable Sanju Pate Admitting Clinician Unavailable Physician, No Primary or Family Admitting Clinician Unavaila ble Payers Payer Name Policy Type Policy Number Effective Date Expiration Date Joseph FRAZIER [id number] 2021 00:00:00 Problems Condition Condition Condition Status Onset Resolution Last Treating Co mments Source Name Details Category Date Date Treatment Clinician Date Lateral Lateral Disease Active Last [place] [facility] t[facility] of tis of 00:00: t & Plan: right right 00 Formattin elbow elbow g of this note might be different from the original. Recommend occupatio nal therapy, physical therapy for her right elbow placed in universal wrist brace today. Discussed possible PRP injection . Patient verbalize jefferson gandhi sample of [place] provided today. And sent to both her local and her mail order pharmacy. Right Right Disease Active UT elbow pain elbow pain 12-12 He alth 00:00: 00 Left foot Left foot Disease Active Uni vers pain pain 6-20 ity of 00:00: [address] Sciatica Sciatica Disease Active Unive rs 6-14 ity of 00:00: [place] [address] Medical [place] Chronic Chronic Disease Active Univers pain pain 6-14 ity of 00:00: [address] History of History of Problem Active C ommon abnormal abnormal [facility] cervical cervical - [facility] Pap smear Pap smear [facility] IUD IUD Problem Active Common (intrauter (intrauter Sp steve ine ine - [facility] device) in device) in [facility] Vaginal Vaginal Problem Active Common symptom symptom [facility] 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 infection infection [facility] History of History of Diagnosis Active Common shingles shingles [facility] Allergies, Adverse Reactions, Alerts Allergy Allergy Status Severity Reaction(s) Onset Inactive Treating Comm ents Source Name Type Date Date Clinician Methylpr Propensi Active UT ednisolo ty to 12-12 Health ne adverse 00:00: reaction 00 s Hydrocod Propensi Active Hives UT one ty to 7-30 Health adverse 00:00: reaction 00 s Zolpidem Propensi Active Hallucinatio Univers ty to ns 4-22 ity of adverse 00:00: [place] reaction 00 Medical s Branch ZOLPIDEM DRUG Active Hallucinates Un wilver INGREDI 4-22 ity of 00:00: [place] 00 Medical Branch Amitript Propensi Active Palpitations UT yline ty to 6-14 Health adverse 00:00: reaction 00 s AMITRIPT DRUG Active Palpitations Un wilver YLINE INGREDI 614 ity of 00:00: [place] 00 Medical Branch No Known DA Active U [facility] Allergie 12-16 Clear s 00:00: [place] [facility] No Known DA Active U [facility] Allergie 12-16 Clear s 00:00: [place] [facility] Duloxeti Propensi Active Hallucinatio Univers ne ty to ns 3-22 ity of adverse 00:00: [place] reaction Medical s to Branch drug DULOXETI DRUG Active Hallucinates Un [place] NE INGREDI 322 ity of 00:00: [place] 00 Medical Branch No Known DA Active U 2008-0 [facility] Food 4-02 Clear Allergie 00:00: West s 00 [facility] No Known DA Active U 2008-0 [facility] Other 4- Clear Allergie 00:00: West s 00 [facility] SOMA DA Active U 2008-0 [facility] 4-02 Clear 00:00: [facility] 00 [facility] CIPRO DA Active U 2008-0 [facility] 4-02 Clear 00:00: [facility] 00 [facility] No Known DA Active U 2008-0 [facility] Contrast 4-02 Clear Allergie 00:00: West s 00 [facility] carisopr DA Active U 2008-0 [facility] odol 4- Clear 00:00: [place] 00 [facility] ciproflo DA Active U 2008-0 [facility] xacin 4- Clear 00:00: [place] 00 [facility] amitript Adverse Active Info Not Commo n yline Reaction Available Spiri t - [facility] Social History Social Habit Start Date Stop Date Quantity Comments Source Exposure to 2022-04-07 2022-04-17 Not sure University of SARS-CoV-2 00:00:00 17:12:00 [place] Medical (event) Branch Tobacco use and 2022-04-17 2022-04-17 Smokeless tobacco Un iversity of exposure 00:00:00 00:00:00 non-user [facility] Alcohol intake 2021-12-12 2021-12-12 .14 /d [facility] 00:00:00 00:00:00 Sex [birth year] At [birth year] F [facility] 00:00:00 00:00:00 Smoking Status Start Date Stop Date Source Never smoked tobacco [facility] Medications Ordered Filled Start Stop Current Ordering Indication Dosage Frequency Signature Comments Components Source Medication Medication Date Date Medication? Clinician (SIG) Name Name dicyclomine Yes [id number] 10mg Take 1 Univers 10 mg 14 capsule by ity of capsule 00:00: mouth 4 [place] 00 ([facility]) Medical times Branch daily. dicyclomine 2022- No [id number] 10mg Take 1 Univers 10 mg 04-1718 capsule by ity of capsule 00:00: 05:59 mouth 4 [place] 00 :00 ([facility]) Medical times Branch daily for 5 days. dicyclomine 2022- No [id number] 10mg Take 1 Univers 10 mg -18 capsule by ity of capsule 00:00: 05:59 mouth 4 [place] 00 :00 ([facility]) Medical times Branch daily for 5 days. dicyclomine 2022- No [id number] 10mg Take 1 Univers 10 mg 04-17 capsule by ity of capsule 00:00: 00:00 mouth 4 [place] 00 :00 ([facility]) Medical times [place] daily for 5 days. ketorolac 2021-04- No [id number] 30mg Univers (TORADOL) 04-19 4 ity of injection 17:45: 17:09 [place] 30 mg 00 :00 Medical Branch ketorolac 2021-04- No [id number] 30mg 30 mg, Univers (TORADOL) 04-19 4 Intramuscu ity of injection 17:45: 17:09 [place], ONCE, [place] 30 mg 00 :00 1 dose, On Medical Mon Branch 02/17/22 at 1145, Routine methocarbam 2021-04 Yes [id number] 500mg Take 1 Univers oL 500 mg 1-14 4 tablet by ity o f tablet 00:00: mouth 4 [place] 00 (four) Medical times Branch daily. methocarbam 2021-04 Yes [id number] 500mg Take 1 Univers oL 500 mg 1-14 4 tablet by ity o f tablet 00:00: mouth 4 [place] 00 (four) Medical times Branch daily. methocarbam 2021-04 Yes [id number] 500mg Take 1 Univers oL 500 mg 1-14 4 tablet by ity o f tablet 00:00: mouth 4 [place] 00 (four) Medical times Branch daily. methocarbam 2021-04 Yes [id number] 500mg Take 1 Univers oL 500 mg 1-14 4 tablet by ity o f tablet 00:00: mouth 4 [place] 00 (four) Medical times Branch daily. methocarbam 2021-04 Yes [id number] 500mg Take 1 Univers oL 500 mg 1-14 4 tablet by ity o f tablet 00:00: mouth 4 [place] 00 ([facility]) Medical times Branch daily. methocarbam 2021-04 Yes [id number] 500mg Take 1 Univers oL 500 mg 1-14 4 tablet by ity o f tablet 00:00: mouth 4 [place] 00 ([facility]) Medical times Branch daily. Diclofenac 2021- No [id number] 20mg Q.5D Apply 20 UT Sodium 12-12 9107 mg Health ([facility]) 00:00: 04:59 topically 2 % 00 :00 2 (two) solution times a day. Diclofenac 2021- No [id number] 20mg Q.5D Apply 20 UT Sodium 12-12 9107 mg Health ([facility]) 00:00: 04:59 topically 2 % 00 :00 2 (two) solution times a day. gabapentin Yes UT (Neurontin) 12-05 Health 600 MG 00:00: tablet 00 ubrogepant Yes Take by [facility] ers (UBRELVY 4-22 mouth. ity of ORAL) 08:53: [address] Branch ubrogepant Yes Take by [facility] ers (UBRELVY 4-22 mouth. ity of ORAL) 08:53: [place] 04 Medical Branch ubrogepant 2021-0 Yes Take by Univ ers (UBRELVY 4-22 mouth. ity of ORAL) 08:53: Medical Branch ubrogepant 2021-0 Yes Take by Univ ers (UBRELVY 4-22 mouth. ity of ORAL) 08:53: [place] [address] Medical Branch ubrogepant 2021-0 Yes Take by Univ ers (UBRELVY 4-22 mouth. ity of ORAL) 08:53: [place] [address] Medical Branch ubrogepant 2021-0 Yes Take by Univ ers (UBRELVY 4-22 mouth. ity of ORAL) 08:53: [place] [address] Medical Branch ubrogepant 2021-0 Yes Take by Univ ers (UBRELVY 4-22 mouth. ity of ORAL) 08:53: [place] [address] Medical Branch ubrogepant 2021-0 Yes Take by Univ ers (UBRELVY 4-22 mouth. ity of ORAL) 08:53: [place] [address] Medical Branch betamethaso 0 Yes Univer s ne 4-18 ity of dipropionat 00:00: [place] e 0.05 % 00 Medical cream Branch betamethaso 2021-0 Yes Univer s ne 4-18 ity of dipropionat 00:00: [place] e 0.05 % 00 Medical cream Branch betamethaso 2021-0 Yes Univer s ne 4-18 ity of dipropionat 00:00: [place] e 0.05 % 00 Medical cream Branch betamethaso 2021-0 Yes Univer s ne 4-18 ity of dipropionat 00:00: [place] e 0.05 % 00 Medical cream Branch betamethaso 2021-0 Yes Univer s ne 4-18 ity of dipropionat 00:00: [place] e 0.05 % 00 Medical cream Branch betamethaso 2021-0 Yes Univer s ne 4-18 ity of dipropionat 00:00: [place] e 0.05 % 00 Medical cream Branch betamethaso 2021-0 Yes Univer s ne 4-18 ity of dipropionat 00:00: [place] e 0.05 % 00 Medical cream Branch betamethaso 2021-0 Yes Univer s ne 4-18 ity of dipropionat 00:00: [place] e 0.05 % 00 Medical [facility] Branch buPROPion 2-0 Yes Univers SR 100 mg 4-13 ity of SR tablet 00:00: [place] 00 Medical Branch clonazePAM 2022-0 Yes Univers 0.25 mg 4-13 ity of disintegrat 00:00: [place] ing tablet 00 Medical Branch propranoloL 2022-0 Yes Univer s 20 mg 4-13 ity of tablet 00:00: [place] 00 Medical Branch QUEtiapine 2022-0 Yes Univers 50 mg 4-13 ity of tablet 00:00: [place] 00 Medical Branch buPROPion 2022-0 Yes Univers SR 100 mg 4-13 ity of SR tablet 00:00: [place] 00 Medical Branch clonazePAM 2-0 Yes Univers 0.25 mg 4-13 ity of disintegrat 00:00: [place] ing tablet 00 Medical Branch propranoloL 2-0 Yes Univer s 20 mg 4-13 ity of tablet 00:00: [place] 00 Medical Branch QUEtiapine 2022-0 Yes Univers 50 mg 4-13 ity of tablet 00:00: [place] 00 Medical Branch buPROPion 2-0 Yes Univers SR 100 mg 4-13 ity of SR tablet 00:00: [place] [address] Medical Branch clonazePAM 2-0 Yes Univers 0.25 mg 4-13 ity of disintegrat 00:00: [place] ing tablet 00 Medical Branch propranoloL 2-0 Yes Univer s 20 mg 4-13 ity of tablet 00:00: [place] 00 Medical Branch QUEtiapine 2022-0 Yes Univers 50 mg 4-13 ity of tablet 00:00: [place] 00 Medical Branch buPROPion 2022-0 Yes Univers SR 100 mg 4-13 ity of SR tablet 00:00: [place] 00 Medical Branch clonazePAM 2022-0 Yes Univers 0.25 mg 4-13 ity of disintegrat 00:00: [place] ing tablet 00 Medical Branch propranoloL 2022-0 Yes Univer s 20 mg 4-13 ity of tablet 00:00: [place] 00 Medical Branch QUEtiapine 2022-0 Yes Univers 50 mg 4-13 ity of tablet 00:00: [place] 00 Medical Branch buPROPion 2022-0 Yes Univers SR 100 mg 4-13 ity of SR tablet 00:00: [place] 00 Medical Branch clonazePAM 2022-0 Yes Univers 0.25 mg 4-13 ity of disintegrat 00:00: [place] ing tablet 00 Medical Branch propranoloL 2022-0 Yes Univer s 20 mg 4-13 ity of tablet 00:00: [place] 00 Medical Branch QUEtiapine 2022-0 Yes Univers 50 mg 4-13 ity of tablet 00:00: [place] 00 Medical Branch buPROPion 2022-0 Yes Univers SR 100 mg 4-13 ity of SR tablet 00:00: [place] 00 Medical Branch clonazePAM 2022-0 Yes Univers 0.25 mg 4-13 ity of disintegrat 00:00: [place] ing tablet 00 Medical Branch propranoloL 2022-0 Yes Univer s 20 mg 4-13 ity of tablet 00:00: [place] [address] Medical Branch QUEtiapine 2022-0 Yes Univers 50 mg 4-13 ity of tablet 00:00: [place] [address] Medical Branch buPROPion 2022-0 Yes Univers SR 100 mg 4-13 ity of SR tablet 00:00: [place] [address] Medical Branch clonazePAM 2022-0 Yes Univers 0.25 mg 4-13 ity of disintegrat 00:00: [place] ing tablet 00 Medical Branch propranoloL 2022-0 Yes Univer s 20 mg 4-13 ity of tablet 00:00: [place] [address] Medical Branch QUEtiapine 2022-0 Yes Univers 50 mg 4-13 ity of tablet 00:00: [place] [address] Medical Branch buPROPion 2022-0 Yes Univers SR 100 mg 4-13 ity of SR tablet 00:00: [place] [address] Medical Branch clonazePAM 2022-0 Yes Univers 0.25 mg 4-13 ity of disintegrat 00:00: [place] ing tablet 00 Medical Branch propranoloL 2022-0 Yes Univer s 20 mg 4-13 ity of tablet 00:00: [place] [address] Medical Branch QUEtiapine 2022-0 Yes Univers 50 mg 4-13 ity of tablet 00:00: [place] [address] Medical Branch topiramate 2022-0 Yes Univers 50 mg 4-04 ity of tablet 00:00: [place] [address] Medical Branch topiramate 2022-0 Yes Univers 50 mg 4-04 ity of tablet 00:00: [place] 00 Medical Branch topiramate 2022-0 Yes Univers 50 mg 4-04 ity of tablet 00:00: [place] Medical Branch topiramate 2022-0 Yes Univers 50 mg 4-04 ity of tablet 00:00: [place] [address] Medical Branch topiramate 2022-0 Yes Univers 50 mg 4-04 ity of tablet 00:00: [place] [address] Medical Branch topiramate 2021-0 Yes Univers 50 mg 4-04 ity of tablet 00:00: [place] [address] Medical Branch topiramate 2021-0 Yes Univers 50 mg 4-04 ity of tablet 00:00: [place] [address] Medical Branch topiramate 2021-0 Yes Univers 50 mg 4-04 ity of tablet 00:00: [place] [address] Medical Branch AIMOVIG 2021-0 Yes Univers AUTOINJECTO 3-15 ity of R 70 mg/mL 00:00: [place] [address] Medical Branch AIMOVIG 2021-0 Yes Univers AUTOINJECTO 3-15 ity of R 70 mg/mL 00:00: [facility] Medical Branch AIMOVIG 2021-0 Yes Univers AUTOINJECTO 3-15 ity of R 70 mg/mL 00:00: [facility] Medical Branch AIMOVIG 2021-0 Yes Univers AUTOINJECTO 3-15 ity of R 70 mg/mL 00:00: [place] [address] Medical Branch AIMOVIG 2021-0 Yes Univers AUTOINJECTO 3-15 ity of R 70 mg/mL 00:00: [place] [address] Medical Branch AIMOVIG 2021-0 Yes Univers AUTOINJECTO 3-15 ity of R 70 mg/mL 00:00: [place] [address] Medical Branch AIMOVIG 2021-0 Yes Univers AUTOINJECTO 3-15 ity of R 70 mg/mL 00:00: [place] [address] Medical Branch AIMOVIG 2021-0 Yes Univers AUTOINJECTO 3-15 ity of R 70 mg/mL 00:00: [place] [address] Medical Branch QUEtiapine 2021-0 Yes Univers 25 mg 2-15 ity of tablet 00:00: [place] [address] Medical Branch QUEtiapine 2021-0 Yes Univers 25 mg 2-15 ity of tablet 00:00: [place] [address] Medical Branch QUEtiapine 2021-0 2021- No Univer s 25 mg 2-15 11-14 ity of tablet 00:00: 00:00 [place] 00 :00 Medical Branch Valacyclovi Valacyclovi 2017-0 2018- No Caitlin 1 tablet Common r HCl r HCl 5- 0608 [place] [facility] 00:00: 00:00 - [facility] 00 :00 [facility] ibuprofen Yes 400mg Take 1 Tab U [...] oral narcotics or Pain unrelieved by Tylenol. ibuprofen Yes 400mg Take 1 Tab U nivers (MOTRIN) 3-22 by mouth ity of 400 mg 00:00: every 8 [place] tablet 00 (eight) Medical hours as Branch needed for Pain (scale 1-3) with oral narcotics or Pain unrelieved by Tylenol. ibuprofen Yes 400mg Take 1 Tab U nivers (MOTRIN) 3-22 by mouth ity of 400 mg 00:00: every 8 [place] tablet 00 (eight) Medical hours as Branch needed for Pain (scale 1-3) with oral narcotics or Pain unrelieved by Tylenol. ibuprofen Yes 400mg Take 1 Tab U nivers (MOTRIN) 3-22 by mouth ity of 400 mg 00:00: every 8 [place] tablet 00 (eight) Medical hours as Branch needed for Pain (scale 1-3) with oral narcotics or Pain unrelieved by Tylenol. ibuprofen Yes 400mg Take 1 Tab U nivers (MOTRIN) 3-22 by mouth ity of 400 mg 00:00: every 8 [place] tablet 00 (eight) Medical hours as Branch needed for Pain (scale 1-3) with oral narcotics or Pain unrelieved by Tylenol. ibuprofen Yes 400mg Take 1 Tab U nivers (MOTRIN) 3-22 by mouth ity of 400 mg 00:00: every 8 [place] tablet 00 (eight) Medical hours as Branch needed for Pain (scale 1-3) with oral narcotics or Pain unrelieved by Tylenol. HYDROcodone 2021- No 1{tbl} Take 1 Tab Univers -acetaminop 3- 11-14 by mouth ity of hen (NORCO) 00:00: 00:00 every 8 [place] 5-325 mg 00 :00 (eight) Medical tablet hours as Branch needed for Pain (scale 7-10) or Pain unrelieved by non-narcot ic analgesics . Mirena (52 Mirena (52 Yes Caitlin not Common MG) MG) [place] defined [facility] Trazodone Trazodone Yes Caitlin not Co mmon HCl HCl [place] defined [facility] Vital Signs Vital Name Observation Time Observation Value Comments Source Systolic blood 2022-04-17 23:21:00 116 mm[facility]Hg[facility] Diastolic blood 2022-04-17 23:21:00 75 mm[Hg] [facility] Heart rate 2022-04-17 23:21:00 65 /min [facility] Body temperature 2022-04-17 23:21:00 36.56 Mohini [facility] Respiratory rate 2022-04-17 23:21:00 17 /min [facility] Body weight 2022-04-17 23:21:00 72.576 kg [facility] BMI 2022-04-17 23:21:00 26.63 kg/m2 [facility] Oxygen saturation in 2022-04-17 23:21:00 98 /min University of Arterial blood by [place] [facility] ines Pulse oximetry Branch Systolic blood 2022-02-17 16:44:00 114 mm[Hg] Univer sity of pressure [place] [facility] Diastolic blood 2022-02-17 16:44:00 75 mm[Hg] Unive rsity of pressure [place] [facility] Body temperature 2022-02-17 16:44:00 36.67 Mohini Univ ersity of [place] [facility] Respiratory rate 2022-02-17 16:44:00 16 /min Univ ersity of [place] [facility] Body height 2022-02-17 16:44:00 165.1 cm Universi ty of [place] [facility] Body weight 2022-02-17 16:44:00 68.811 kg Universi ty of [place] [facility] BMI 2022-02-17 16:44:00 25.24 kg/m2 Universi ty of [place] [facility] Systolic blood 2021-09-23 16:16:00 109 mm[Hg] Univer sity of pressure [place] [facility] Diastolic blood 2021-09-23 16:16:00 65 mm[Hg] Unive rsity of pressure [place] [facility] Heart rate 2021-09-23 16:16:00 71 /min Universi ty of [place] [facility] Body temperature 2021-09-23 16:16:00 36.44 Mohini Univ ersity of [place] [facility] Body height 2021-09-23 16:16:00 165.1 cm Universi ty of [place] [facility] Body weight 2021-09-23 16:16:00 73.029 kg Universi ty of [place] [facility] BMI 2021-09-23 16:16:00 26.79 kg/m2 Universi ty of [place] [facility] Oxygen saturation in 2021-09-23 16:16:00 95 /min University of Arterial blood by [place] [facility] Pulse oximetry Branch Procedures Procedure Date / Time Performed Performing Clinician Duncan carrion CT CERVICAL SPINE WO 2022-04-01 14:52:00 Requisition, Paper Univ [facility] Medical Branch Encounters Start End Encounter Admission Attending Care Care Encounter Source Date/Time Date/Time Type Type Clinicians Facility Department ID 2021-12-12 Outpatient [facility] [id number] [place] 09:23:03 [id number] [facility] 2021-12-11 Outpatient [facility] [id number] [place] 08:55:39 [id number] [facility] 2022-04-19 2022-04-19 Telephone Jaky [facility] [id number] [id number] Univers 00:00:00 00:00:00 [employer] [id number] it [facility] [id number] Eddie as JOSE?BLEA [id number] [address] MEDICAL OFFICE [facility] 2022-04-17 2022-04-17 Outpatient R JAKY [facility] [id number] Univers 17:00:00 17:27:08 JOANIE logan [facility] 2022-04-17 2022-04-17 Urgent Joanie Starkey [facility] 1.2.840.114 [id number] Univers 17:00:00 17:27:08 Care Unknown, [facility] HEALTH [id number] ity of [place] [id number] Eddie as JOSE?BLEA [id number] [address] OFFICE [facility] 2022-04-17 2022-04-17 Letter Tonajayloncassidy [facility] [id number] Univers 00:00:00 00:00:00 (Out) Joanie Squee [id number] it y of [place] [id number] Eddie as JOSE?BLEA [id number] [address] OFFICE [facility] 2022-04-01 2022-04-01 Outpatient R RADIOLOGY [facility] [id number] Univers 08:10:56 23:59:00 ity of [facility] 2022-04-01 2022-04-01 Hospital Radiology [facility] 1.2.840.114 [id number] Univers 08:10:56 23:59:00 Encounter [place] [id number] ity of [place]2.7.2.686 [place] [id number] [address] 2022-02-17 2022-02-17 Outpatient R VERONICA [facility] [id number] Univers 10:00:00 11:04:59 LORENZA logan [facility] 2022-02-17 2022-02-17 Urgent Lorenza Barrientos [facility] 1.2.840.114 [id number] Univers 10:00:00 11:04:59 Care Unknown, [facility] HEALTH [id number] ity of [place] 4.2.7.2.686 Eddie as JOSE?BLEA [id number] [address] MEDICAL OFFICE [facility] 2022-02-17 2022-02-17 Maninder Barrientos [facility] 1.2.840.114 [id number] Univers 00:00:00 00:00:00 (Out) [facility] [id number] it y [facility] [id number] Eddie as JOSE?BLEA [id number] [address] OFFICE [facility] 2021-12-12 2021-12-12 Outpatient [facility] [id number] [place] 12:30:00 14:22:38 Health 2021-12-12 2021-12-12 [facility] 1.2.840.114 [id number] [place] 12:30:00 14:22:28 Visit JUDITH YBARRA 350.1.13.[address] [facility] 9.2.7.2.686 [place] 8 [id number] 2021-09-24 2021-09-24 Telephone Ayo [facility] [id number] [facility] 00:00:00 00:00:00 [facility] [id number] it y of [place].2.686 [place] - [id number] [address] 2021-09-23 2021-09-23 Office Ayo [facility] 1.2.840.114 [id number] Univers 10:15:00 11:36:02 Visit Rebeca NISHA 350.1.13.10 i ty of [place]2.7.[place] [id number] [address] 2021-09-23 2021-09-23 Outpatient R AYO [facility] [id number] Univers 10:15:00 11:36:02 REBECA logan [facility] 2021-09-23 2021-09-23 Outpatient R AYO [facility] [id number] Univers 10:15:00 10:15:00 REBECA logan [facility] 2021-09-23 2021-09-23 [facility] 1.2.840.114 [id number] Univers 00:00:00 00:00:00 (Out) Rebeca NISHA 350.1.13.10 i ty of [place] [facility] 4.2.7.[place] [id number] Me dical NAL 419 [facility] 2021-09-20 2021-09-20 Orders Doctor YAYO 1.2.840.114 [id number] Univers 00:00:00 00:00:00 Only Unassigned, FREDI 350.1.13.10 ity of [place] [facility] 4.2.7.2.686 Eddie as [id number] [facility] 009 Branch 2021 2021 [facility] 1.2.840.114 [id number] Univers 08:00:00 08:30:00 Visit Falguni LOPEZ 350.1.13.10 it y of [place] [id number] [facility] 134 Branch 2021 2021 Outpatient R FALGUNI [facility]ST [facility] [id number] Univers 08:00:00 08:00:00 FALGUNI BEST [facility] 2021 2021 Outpatient R FALGUNI [facility]ST [facility] [id number] Univers 08:00:00 08:00:00 FALGUNI BEST [facility] 2020-09-12 2020-09-12 Outpatient EL Grace [facility]ACL MILO G00 [id number] FOR[facility] [place] [facility] 12:00:00 gerson Sanju 74 [facility] 2020-09-04 2020-09-04 Outpatient EL [place]te[place]ummul [facility]CAPM MILO [id number] [facility] 12:00:00 12:00:00 a, Sanju 05 Carol Ann an [facility] 2019-03-23 2019-03-23 Outpatient EL UNDEFINED [facility] MILO [id number] [facility] 12:00:00 12:00:00 [facility] 2017-09-01 2017-09-01 [facility] [id number] Common 11:15:00 11:15:00 [facility] 2017-08-19 2017-08-19 [facility] [id number] Common 16:51:00 16:51:00 [facility] 2017-08-11 2017-08-11 [facility] [id number] Common 13:45:00 13:45:00 [facility] 2017-07-21 2017-07-21 [facility] [id number] Common 10:00:00 10:00:00 [facility] Results Test Description Test Time Test Comments Results Result Comments Source - UGI W/O KUB 2008-07-07 08:36:00 [facility])Name: FISH LUZ : 1980 Sex: F FAX: Sukumar Colmenares [phone] [place]: [address] St: UNK Name: BARRETT LUZ [facility] : 1980 Age/S: 27/F [address] [facility] Unit #: [id number] Loc: [place] [address] Phys: Sukumar Mejias MD Acct: [id number] Dis Date: Status: UNK PHONE #: [phone] Exam Date: 07/07/2008814 FAX #: [phone] Reason: UGI IN AM W/GASTROGGRAFFIN OR THIN BARIU EXAMS: CPT CODE: [id number] XR UGI W/O KUB 36706 HISTORY: Gastric bypass. No evidence of obstruction of the gastrojejunostomy. Free flow of contrast through the anastomotic site with mild edema and no evidence for leakage. IMPRESSION: No obstruction or leak at anastomotic site. at 0837 Reported and signed by: Matthew Marquez M.D. CC: Sukumar Mejias MD Technologist: SHEA DE LA CRUZ; STUDENT TECHNOLOGIST Trnscrd Date/Time/By: 07/07/2008 (836) : By: [email or web address] Orig Print D/T: S: 07/07/2008 (0838) PAGE 1 Signed Report
[2022-08-19] MEDS ORDERED: METOCLOPRAMIDE 10 MG/2mL INJ ONE (11:22)
[2022-08-19] MEDS ORDERED: DIPHENHYDRAMINE 50 MG/ML VIAL ONE (11:22)
[2022-08-19] MEDS ORDERED: KETOROLAC 30 MG/ML INJ ONE (11:22)
[2022-08-19] MEDS ORDERED: NA CHLORIDE 0.9% 1,000 ML ONE (11:23)
--- NOTE | 2022-08-19 12:06 | ER ---
Nurse's Notes [facility] Name: Sarmad Tao Age: 42 yrs Sex: Female : 1980 Arrival Date: 08/19/2022 Time: 10:23 Bed 10 Private MD: Diagnosis: Headache;Myalgia Presentation: 08/19 10:29 Chief complaint: Patient states: Headache, fever and chills since yesterday. States [facility] fever was 103. 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 10:29 Method Of Arrival: Ambulatory [facility] 10:29 Coronavirus screen: Vaccine status: Patient reports receiving the 2nd dose of the covid nj1 vaccine. Ebola Screen: No symptoms or risks identified at this time. Initial Sepsis Screen: Does the patient meet any 2 criteria? No. Patient's initial sepsis screen is negative. Does the patient have a suspected source of infection? No. Patient's initial sepsis screen is negative. Risk Assessment: Do you want to hurt yourself or someone else? Patient reports no desire to harm self or others. Onset of symptoms was August 18, 2022. 10:29 Acuity: PEYTON 3 nj1 Triage Assessment: 12:30 Headache History: The patient has had previous headaches. Pain: Pain Also complains of iw no other associated symptoms. 12:30 Pain: Pain began. 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 - Social history:: Smoking status: Patient denies any tobacco usage or history of. Screenin:15 [facility] ED Fall Risk Assessment (Adult) History of falling in the last 3 months, ko1 including since admission No falls in past 3 months (0 pts) Confusion or Disorientation No (0 pts) Intoxicated or Sedated No (0 pts) Impaired Gait No (0 pts) Mobility Assist Device Used No (0 pt) Altered Elimination No (0 pt) Score/Fall Risk Level 0 - 2 = Low Risk Oriented to surroundings, Maintained a safe environment, Educated pt \T\ family on fall prevention, incl call for assistance when getting out of bed, Assessed \T\ reinforced patient's understanding of fall precautions, Provided non-skid footwear, Hourly rounding (assess needs \T\ fall precautionary measures) done, Used ambulatory aids as needed (educated on \T\ assisted with), Used gait belt as appropriate. Abuse screen: Denies threats or abuse. Denies injuries from another. Nutritional screening: No deficits noted. Tuberculosis screening: No symptoms or risk factors identified. Assessment: 11:15 General: Appears in no apparent distress. uncomfortable, Behavior is calm, cooperative, ko1 appropriate for age. Pain: Complains of pain in forehead. Neuro: No deficits noted. Cardiovascular: No deficits noted. Respiratory: No deficits noted. GI: No deficits noted. : No deficits noted. EENT: No deficits noted. Derm: No deficits noted. Musculoskeletal: No deficits noted. Vital Signs: 10:29 BP 123 / 87; Pulse 97; Resp 16; Temp 99(TE); Pulse Ox 100% ; Weight 65.77 kg; Height 5 nj1 ft. 5 in. ; Pain 9/10; 10:29 Body Mass Index 24.13 (65.77 kg, 165.1 cm) nj1 10:29 Pain Scale: Adult nj1 ED Course: 10:24 Patient arrived in ED. rg4 10:25 Petey Barkley DO is Attending Physician. ms3 10:39 Triage completed. nj1 10:39 Arm band placed on right wrist. nj1 10:56 COVID-19 SARS RT PCR Sent. nj1 10:56 Flu Sent. nj1 11:07 Susie Figueroa, RN is Primary Nurse. iw 11:15 Patient has correct armband on for positive identification. Bed in low position. Call ko1 light in reach. Side rails up X 1. Pulse ox on. NIBP on. Door closed. Noise minimized. Lights dimmed. Warm blanket given. Pillow given. 11:15 No provider procedures requiring assistance completed. ko1 11:19 COVID-19 SARS RT PCR Sent. kj1 11:19 Flu Sent. kj1 12:05 Hayden Simon DO is Referral Physician. ms3 12:30 IV discontinued, intact, bleeding controlled, No redness/swelling at site. Pressure iw dressing applied. Administered Medications: 11:33 Drug: NS 0.9% IV 1000 ml Route: IV; Rate: 1000 ml; Site: left antecubital; ko1 11:47 Follow up: Response: No adverse reaction ko1 12:30 Follow up: IV Status: Completed infusion; Infusion continued iw 11:33 Drug: Ketorolac IVP 10 mg 10 mg Route: IVP; Site: left antecubital; ko1 11:47 Follow up: Response: No adverse reaction ko1 11:33 Drug: metoCLOPramide IVP 10 mg Route: IVP; Site: left antecubital; ko1 11:47 Follow up: Response: No adverse reaction ko1 11:33 Drug: diphenhydrAMINE IVP 25 mg Route: IVP; Site: left antecubital; ko1 11:47 Follow up: Response: No adverse reaction ko1 Medication: 11:15 VIS not applicable for this client. ko1 Outcome: 12:06 Discharge ordered by MD. ms3 12:30 Discharged to home ambulatory. iw 12:30 Condition: good 12:30 Discharge instructions given to patient, Instructed on discharge instructions, follow up and referral plans. Demonstrated understanding of instructions, follow-up care. 12:31 Patient left the ED. iw Signatures: Susie Figueroa RN ISIDRA iw Mansi Coker rg4 Ailyn Rogers kj1 Petey Barkley DO DO ms3 Татьяна Eric RN RN ko1 Mae Patiño RN RN nj1 Corrections: (The following items were deleted from the chart) 10:39 10:29 Pulse 97bpm; Pulse Ox 100%; nj1 nj1
--- NOTE | 2022-08-19 12:07 | EDPHYS ---
Physician Documentation [facility] Name: Sarmad Tao Age: 42 yrs Sex: Female : 1980 Arrival Date: 08/19/2022 Time: 10:23 Bed 10 Private MD: ED Physician Petey Barkley HPI: 08/19 10:52 This 42 yrs old Black Female presents to ER via Ambulatory with complaints of Headache, ms3 Fever, Chills. 10:52 42-year-old female with past medical history of depression, hypoglycemia, migraines, ms3 neuropathy presents for headache that began yesterday. Patient states is located in the frontal portion of her head. Patient rates her pain a 9/10. Patient states last night she developed a temperature of 103. Patient endorses chills, fatigue, nausea. Patient is unaware if she was around sick contacts.. 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 - Social history:: Smoking status: Patient denies any tobacco usage or history of. ROS: 10:52 Neck: Negative for injury, pain, and swelling. ms3 10:52 Respiratory: Negative for shortness of breath, cough, wheezing, and pleuritic chest pain. 10:52 MS/Extremity: Negative for injury and deformity, Skin: Negative for injury, rash, and discoloration. 10:52 Constitutional: Positive for body aches, chills, fever. 10:52 Abdomen/GI: Positive for nausea. 10:52 All other systems are negative. Exam: 10:52 Constitutional: This is a well developed, well nourished patient who is awake, alert, ms3 and in no acute distress. Head/Face: Normocephalic, atraumatic. Chest/axilla: Normal chest wall appearance and motion. Nontender with no deformity. Cardiovascular: Regular rate and rhythm with a normal S1 and S2. No gallops, murmurs, or rubs. Normal PMI, no JVD. No pulse deficits. Respiratory: Lungs have equal breath sounds bilaterally, clear to auscultation and percussion. No rales, rhonchi or wheezes noted. No increased work of breathing, no retractions or nasal flaring. Abdomen/GI: Soft, non-tender, with normal bowel sounds. No distension or tympany. No guarding or rebound. No evidence of tenderness throughout. Skin: Warm, dry with normal turgor. Normal color with no rashes, no lesions, and no evidence of cellulitis. MS/ Extremity: Pulses equal, no cyanosis. Neurovascular intact. Full, normal range of motion. Neuro: Awake and alert, GCS 15, oriented to person, place, time, and situation. Cranial nerves II-XII grossly intact. Motor strength 5/5 in all extremities. Sensory grossly intact. Cerebellar exam normal. Normal gait. Vital Signs: 10:29 BP 123 / 87; Pulse 97; Resp 16; Temp 99(TE); Pulse Ox 100% ; Weight 65.77 kg; Height 5 nj1 ft. 5 in. ; Pain 9/10; 10:29 Body Mass Index 24.13 (65.77 kg, 165.1 cm) nj1 10:29 Pain Scale: Adult nj1 MDM: 10:45 Patient medically screened. ms3 10:52 Differential diagnosis: migraine, Flu versus COVID. ms3 12:06 Data reviewed: vital signs, nurses notes, lab test result(s), and as a result, I will ms3 discharge patient. I considered the following discharge prescriptions or medication management in the emergency department Medications were administered in the Emergency Department. See MAR. Counseling: I had a detailed discussion with the patient and/or guardian regarding: the historical points, exam findings, and any diagnostic results supporting the discharge/admit diagnosis, lab results, the need for outpatient follow up, to return to the emergency department if symptoms worsen or persist or if there are any questions or concerns that arise at home. Response to treatment: the patient's symptoms have resolved after treatment, and as a result, I will discharge patient. Special discussion: I discussed with the patient/guardian in detail that at this point there is no indication for admission to the hospital. It is understood, however, that if the symptoms persist or worsen the patient needs to return immediately for re-evaluation. 08/19 10:45 Order name: Flu; Complete Time: 11:43 ms3 08/19 10:45 Order name: COVID-19 SARS RT PCR; Complete Time: 11:43 ms3 Administered Medications: 11:33 Drug: NS 0.9% IV 1000 ml Route: IV; Rate: 1000 ml; Site: left antecubital; ko1 11:47 Follow up: Response: No adverse reaction ko1 12:30 Follow up: IV Status: Completed infusion; Infusion continued iw 11:33 Drug: Ketorolac IVP 10 mg 10 mg Route: IVP; Site: left antecubital; ko1 11:47 Follow up: Response: No adverse reaction ko1 11:33 Drug: metoCLOPramide IVP 10 mg Route: IVP; Site: left antecubital; ko1 11:47 Follow up: Response: No adverse reaction ko1 11:33 Drug: diphenhydrAMINE IVP 25 mg Route: IVP; Site: left antecubital; ko1 11:47 Follow up: Response: No adverse reaction ko1 Disposition: 16:21 Chart complete. ms3 Disposition Summary: 08/19/22 12:06 Discharge Ordered Location: Home ms3 Condition: Stable ms3 Diagnosis - Headache ms3 - Myalgia ms3 Followup: ms3 - With: Hayden Simon DO - When: 2 - 3 days - Reason: Recheck today's complaints Discharge Instructions: - Discharge Summary Sheet ms3 - General Headache Without Cause ms3 Forms: - Work release form iw - Medication Reconciliation Form ms3 - Thank You Letter ms3 - Antibiotic Education ms3 - Prescription Opioid Use ms3 Signatures: Dispatcher [employer] Susie Bo RN ISIDRA iw Petey Barkley DO DO ms3 Татьяна Eric RN RN ko1 Mae Patiño RN RN nj1
[2022-08-19 12:47] VITALS: BP 123/87; TEMP 99; O2SAT 100
== END 2022-08-19 12:31 | disposition home or self-care (01) ==
LOC: ER 10:23
DX: R51.9 Headache, unspecified (principal); M79.10 Myalgia, unspecified site; E16.2 Hypoglycemia, unspecified; F32.A Depression, unspecified; Z20.822 Contact with and (suspected) exposure to COVID-19; Z88.5 Allergy status to narcotic agent; Z88.8 Allergy status to other drugs, medicaments and biological substances
CPT/HCPCS: 96361; 87804 ×2; 96375; 96374; 99284; U0003; J2765; J1200; J7030

== ENCOUNTER 2022-09-09 21:57 | Emergency (ER) | payer OTHER ==
--- OUTSIDE RECORDS SUMMARY | 2022-09-09 22:28 | XMS REPORT | Continuity of Care Document ---
:1980 Author Organization [facility] t Address [address] [facility] [address] [place] [address] Care Team Providers Name Role Phone Sanju Pate MD Primary Care Physician [phone] Joanie Aguilar Attending Clinician JOANIE STARKEY Attending Clinician Unavailable Unknown, Attending Attending Clinician Unavailable RADIOLOGY Attending Clinician Unavailable Radiology Attending Clinician Unavailable LORENZA BARRIENTOS Attending Clinician Unavailable Lorenza Barrientos MD Attending Clinician JAMIE VANESSA Attending Clinician Unavailable Rebeca Rollins MD Attending Clinician REBECA ROLLINS Attending Clinician Unavailable Doctor Unassigned, [place] Attending Clinician Unavailable Falguni Best NP Attending Clinician FALGUNI BEST Attending Clinician Unavailable Sanju Pate Attending Clinician Unavailable UNDEFINED Attending Clinician Unavailable LISSY RICK Admitting Clinician Unavailable Sanju Pate Admitting Clinician Unavailable Physician, No Primary or Family Admitting Clinician Unavaila ble Payers Payer Name Policy Type Policy Number Effective Date Expiration Date Joseph FRAZIER [id number] 2021 00:00:00 Problems Condition Condition Condition Status Onset Resolution Last Treating Co mments Source Name Details Category Date Date Treatment Clinician Date Lateral Lateral Disease Active Last [place] epicondyli epicondyli 12-12 [facility] tis of tis of 00:00: t [...] vers pain pain 6-20 ity of 00:00: [place] [facility] Sciatica Sciatica Disease Active Unive rs 6-14 ity of 00:00: [place] [address] Medical [place] Chronic Chronic Disease Active Univers pain pain 6-14 ity of 00:00: [place] [address] [facility] [place] History of History of Problem Active C ommon abnormal abnormal [facility] cervical cervical - [facility] Pap smear Pap smear [facility] IUD IUD Problem Active Common (intrauter (intrauter Sp steve ine ine - [facility] device) in device) in [facility] Vaginal Vaginal Problem Active Common symptom symptom [facility] 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 infection infection [facility] History of History of Diagnosis Active Common shingles shingles [facility] Allergies, Adverse Reactions, Alerts Allergy Allergy Status [...] wilver YLINE INGREDI 6-14 ity of 00:00: [place] 00 Medical Branch No Known DA Active U [facility] Allergie 12-16 Clear s 00:00: [facility] No Known DA Active U [facility] Allergie 12-16 Clear s 00:00: [facility] Duloxeti Propensi Active Hallucinatio Univers ne ty to ns 3-22 ity of adverse 00:00: [place] reaction Medical s to Branch drug DULOXETI DRUG Active Hallucinates Un wilver NE INGREDI 322 ity of 00:00: [place] 00 Medical Branch SOMA DA Active U 2008-0 [facility] 4-02 Clear 00:00: [facility] 00 [facility] CIPRO DA Active U 2008-0 [facility] 4-02 Clear 00:00: [facility] 00 [facility] No Known DA Active U 2008-0 [facility] Contrast 4-02 Clear Allergie 00:00: [facility] s [facility] No Known DA Active U 2009-0 [facility] Food 4-02 Clear Allergie 00:00: West s 00 [facility] No Known DA Active U 2008-0 [facility] Other 4-02 Clear Allergie 00:00: West s 00 [facility] carisopr DA Active U 2008-0 [facility] odol 4- Clear 00:00: [facility] 00 [facility] ciproflo DA Active U 2008-0 [facility] xacin 4- Clear 00:00: [facility] 00 [facility] amitript Adverse Active Info Not Commo n yline Reaction Available Spiri t - [facility] Social History Social Habit Start Date Stop Date Quantity Comments Source Exposure to 2022-04-07 2022-04-17 Not sure University of SARS-CoV-2 00:00:00 17:12:00 [place] [facility] (event) Branch Tobacco use and 2022-04-17 2022-04-17 Smokeless tobacco Un iversity of exposure 00:00:00 00:00:00 non-user [facility] Alcohol intake 2021-12-12 2021-12-12 .14 /d [facility] 00:00:00 00:00:00 Sex [birth year] At [birth year] F [facility] 00:00:00 00:00:00 Smoking Status Start Date Stop Date Source Never smoked tobacco [facility] Medications Ordered Filled Start Stop Current Ordering Indication Dosage Frequency Signature Comments Components Source Medication Medication Date Date Medication? Clinician (SIG) Name Name dicyclomine Yes [id number] 10mg Take 1 Univers 10 mg 14 capsule by ity of capsule 00:00: mouth 4 [place] 00 ([facility]) Medical times [place] daily. dicyclomine 2022- No [id number] 10mg Take 1 Univers 10 mg 04-17 capsule by ity of capsule 00:00: 05:59 mouth 4 [place] 00 :00 ([facility]) Medical times [place] daily for 5 days. dicyclomine 2022- No [id number] 10mg Take 1 Univers 10 mg 04-17 capsule by ity of capsule 00:00: 05:59 mouth 4 [place] 00 :00 ([facility]) Medical times [place] daily for 5 days. dicyclomine 2022- No [id number] 10mg Take 1 Univers 10 mg 04-17 capsule by ity of capsule 00:00: 00:00 mouth 4 [place] 00 :00 ([facility]) [facility] times [place] daily for 5 days. ketorolac 2021-04- No [id number] 30mg Univers (TORADOL) 04-19 4 ity of injection 17:45: 17:09 [place] 30 mg 00 :00 [facility] Branch ketorolac 2021-04- No [id number] 30mg 30 mg, Univers (TORADOL) 04-1914 4 Intramuscu ity of injection 17:45: 17:09 lar, ONCE, [place] 30 mg 00 :00 1 dose, On Medical Mon Branch 02/17/22 at 1145, Routine methocarbam 2021-04 Yes [id number] 500mg Take 1 Univers oL 500 mg 1-14 4 tablet by ity o f tablet 00:00: mouth 4 [place] 00 (four) Medical times Branch daily. methocarbam 2021-04 Yes [id number] 500mg Take 1 Univers oL 500 mg 1-14 4 tablet by ity o f tablet 00:00: mouth 4 [place] 00 (four) Medical times Branch daily. methocarbam 2021-04 Yes [id number] 500mg Take 1 Univers oL 500 mg 1-14 4 tablet by ity o f tablet 00:00: mouth 4 [place] 00 (four) Medical times Branch daily. methocarbam 2021-04 Yes [id number] 500mg Take 1 Univers oL 500 mg 1-14 4 tablet by ity o f tablet 00:00: mouth 4 [place] 00 (four) Medical times Branch daily. methocarbam 2021-04 Yes [id number] 500mg Take 1 Univers oL 500 mg 1-14 4 tablet by ity o f tablet 00:00: mouth 4 [place] 00 (four) Medical times Branch daily. methocarbam 2021-04 Yes [id number] 500mg Take 1 Univers oL 500 mg 1-14 4 tablet by ity o f tablet 00:00: mouth 4 [place] 00 (four) Medical times Branch daily. Diclofenac 2021- No [id number] 20mg Q.5D Apply 20 [place] Sodium 12-12 9107 mg Health ([facility]) 00:00: 04:59 topically 2 % 00 :00 2 (two) solution times a day. Diclofenac 2021- No [id number] 20mg Q.5D Apply 20 [place] Sodium 12-12 9107 mg Health ([facility]) 00:00: 04:59 topically 2 % 00 :00 2 (two) solution times a day. gabapentin Yes [place] (Neurontin) 12-05 Health 600 MG 00:00: tablet 00 ubrogepant Yes Take by [facility] ers (UBRELVY 4-22 mouth. ity of ORAL) 08:53: [address] ubrogepant Yes Take by [facility] ers (UBRELVY 4-22 mouth. ity of ORAL) 08:53: [place] 04 Medical Branch ubrogepant 2021-0 Yes Take by Univ ers (UBRELVY 4-22 mouth. ity of ORAL) 08:53: [place] [facility] ubrogepant 2021-0 Yes Take by Univ ers (UBRELVY 4-22 mouth. ity of ORAL) 08:53: [place] [address] Medical Branch ubrogepant 2021-0 Yes Take by Univ ers (UBRELVY 4-22 mouth. ity of ORAL) 08:53: [place] [address] Medical Branch ubrogepant 2021-0 Yes Take by Univ ers (UBRELVY 4-22 mouth. ity of ORAL) 08:53: [place] [address] Medical Branch ubrogepant 2021-0 Yes Take by Univ ers (UBRELVY 4-22 mouth. ity of ORAL) 08:53: [place] [address] Medical Branch ubrogepant 2021-0 Yes Take by Univ ers (UBRELVY 4-22 mouth. ity of ORAL) 08:53: [place] [address] Medical Branch betamethaso 0 Yes Univer s ne 4-18 ity of dipropionat 00:00: [place] e 0.05 % 00 Medical cream Branch betamethaso 0 Yes Univer s ne [...] 0.05 % 00 Medical cream Branch buPROPion 2-0 Yes Univers SR 100 mg 4-13 ity of SR tablet 00:00: [place] 00 Medical Branch clonazePAM 2022-0 Yes Univers 0.25 mg 4-13 ity of disintegrat 00:00: [place] ing tablet 00 Medical Branch propranoloL 2022-0 Yes Univer s 20 mg 4-13 ity of tablet 00:00: [place] 00 Medical Branch QUEtiapine 2022-0 Yes Univers 50 mg 4-13 ity of tablet 00:00: [place] 00 Medical Branch buPROPion 2022-0 Yes Univers SR 100 mg 4-13 ity of SR tablet 00:00: [place] [address] Medical Branch clonazePAM 2-0 Yes Univers 0.25 mg 4-13 ity of disintegrat 00:00: [place] ing tablet 00 Medical Branch propranoloL 2-0 Yes Univer s 20 mg 4-13 ity of tablet 00:00: [place] 00 Medical Branch QUEtiapine 2022-0 Yes Univers 50 mg 4-13 ity of tablet 00:00: [place] 00 Medical Branch buPROPion 2-0 Yes Univers SR 100 mg 4-13 ity of SR tablet 00:00: [place] [address] Medical Branch clonazePAM 2-0 Yes Univers 0.25 mg 4-13 ity of disintegrat 00:00: [place] ing tablet 00 Medical Branch propranoloL 2-0 Yes Univer s 20 mg 4-13 ity of tablet 00:00: [place] 00 Medical Branch QUEtiapine 2022-0 Yes Univers 50 mg 4-13 ity of tablet 00:00: [place] 00 Medical Branch buPROPion 2022-0 Yes Univers SR 100 mg 4-13 ity of SR tablet 00:00: [place] 00 Medical Branch clonazePAM 2022-0 Yes Univers 0.25 mg 4-13 ity of disintegrat 00:00: [place] ing tablet 00 Medical Branch propranoloL 2022-0 Yes Univer s 20 mg 4-13 ity of tablet 00:00: [place] 00 Medical Branch QUEtiapine 2022-0 Yes Univers 50 mg 4-13 ity of tablet 00:00: [place] 00 [facility] Branch buPROPion 2022-0 Yes Univers SR 100 mg 4-13 ity of SR tablet 00:00: [place] 00 Medical Branch clonazePAM 2022-0 Yes Univers 0.25 mg 4-13 ity of disintegrat 00:00: [place] ing tablet 00 Medical Branch propranoloL 2022-0 Yes Univer s 20 mg 4-13 ity of tablet 00:00: [place] 00 Medical Branch QUEtiapine 2022-0 Yes Univers 50 mg 4-13 ity of tablet 00:00: [place] 00 Medical Branch buPROPion 2022-0 Yes Univers SR 100 mg 4-13 ity of SR tablet 00:00: [place] 00 Medical Branch clonazePAM 2022-0 Yes Univers 0.25 mg 4-13 ity of disintegrat 00:00: [place] ing tablet 00 Medical Branch propranoloL 2022-0 Yes Univer s 20 mg 4-13 ity of tablet 00:00: [place] 00 Medical Branch QUEtiapine 2022-0 Yes Univers 50 mg 4-13 ity of tablet 00:00: [place] 00 Medical Branch buPROPion 2022-0 Yes Univers SR 100 mg 4-13 ity of SR tablet 00:00: [place] [address] Medical Branch clonazePAM 2022-0 Yes Univers 0.25 mg 4-13 ity of disintegrat 00:00: [place] ing tablet 00 Medical Branch propranoloL 2-0 Yes Univer s 20 mg 4-13 ity of tablet 00:00: [place] 00 Medical Branch QUEtiapine 2022-0 Yes Univers 50 mg 4-13 ity of tablet 00:00: [place] 00 Medical Branch buPROPion 2022-0 Yes Univers SR 100 mg 4-13 ity of SR tablet 00:00: [place] [address] Medical Branch clonazePAM 2022-0 Yes Univers 0.25 mg 4-13 ity of disintegrat 00:00: [place] ing tablet 00 Medical Branch propranoloL 2022-0 Yes Univer s 20 mg 4-13 ity of tablet 00:00: [place] 00 Medical Branch QUEtiapine 2022-0 Yes Univers 50 mg 4-13 ity of tablet 00:00: [place] 00 Medical Branch topiramate 2022-0 Yes Univers 50 mg 4-04 ity of tablet 00:00: [place] 00 Medical Branch topiramate 2022-0 Yes Univers 50 mg 4-04 ity of tablet 00:00: [place] 00 Medical Branch topiramate 2022-0 Yes Univers 50 mg 4-04 ity of tablet 00:00: [place] [facility] topiramate 2022-0 Yes Univers 50 mg 4-04 ity of tablet 00:00: [place] 00 Medical Branch topiramate 2022-0 Yes Univers 50 mg 4-04 ity of tablet 00:00: [place] 00 Medical Branch topiramate 2021-0 Yes Univers 50 mg 4-04 ity of tablet 00:00: [place] 00 Medical Branch topiramate 2021-0 Yes Univers 50 mg 4-04 ity of tablet 00:00: [place] [address] Medical Branch topiramate 2021-0 Yes Univers 50 mg 4-04 ity of tablet 00:00: [place] [address] Medical Branch AIMOVIG 2021-0 Yes Univers AUTOINJECTO 3-15 ity of R 70 mg/mL 00:00: [facility] 00 Medical Branch AIMOVIG 2021-0 Yes Univers AUTOINJECTO 3-15 ity of R 70 mg/mL 00:00: [facility] Medical Branch AIMOVIG 2021-0 Yes Univers AUTOINJECTO 3-15 ity of R 70 mg/mL 00:00: [facility] Medical Branch AIMOVIG 2021-0 Yes Univers AUTOINJECTO 3-15 ity of R 70 mg/mL 00:00: [facility] Medical Branch AIMOVIG 2021-0 Yes Univers AUTOINJECTO 3-15 ity of R 70 mg/mL 00:00: [facility] 00 Medical Branch AIMOVIG 2021-0 Yes Univers AUTOINJECTO 3-15 ity of R 70 mg/mL 00:00: [facility] 00 Medical Branch AIMOVIG 2021-0 Yes Univers AUTOINJECTO 3-15 ity of R 70 mg/mL 00:00: [facility] Medical Branch AIMOVIG 2021-0 Yes Univers AUTOINJECTO 3-15 ity of R 70 mg/mL 00:00: [facility] 00 Medical Branch QUEtiapine 2021-0 Yes Univers 25 mg 2-15 ity of tablet 00:00: [place] [address] Medical Branch QUEtiapine 2021-0 Yes Univers 25 mg 2-15 ity of tablet 00:00: [place] [address] Medical Branch QUEtiapine 2021-0 2021- No Univer s 25 mg 2-15 11-14 ity of tablet 00:00: 00:00 [place] 00 :00 Medical Branch Valacyclovi Valacyclovi 2017-0 2018- No Caitlin 1 tablet Common r HCl r HCl 5- 06-08 [facility] 00:00: 00:00 - [facility] 00 :00 [facility] ibuprofen Yes 400mg Take 1 Tab U nivers (MOTRIN) 3-22 by mouth ity of 400 mg 00:00: every 8 [place] tablet 00 (eight) Medical hours as Branch needed for Pain (scale 1-3) with oral narcotics or Pain unrelieved by Tylenol. HYDROcodone 0 Yes 1{tbl} Take 1 Tab Univers -acetaminop [...] narcotics or Pain unrelieved by Tylenol. ibuprofen 0 Yes 400mg Take 1 Tab U nivers [...] No 1{tbl} Take 1 Tab Univers -acetaminop 06-25 11-14 by mouth ity of hen (NORCO) 00:00: 00:00 every 8 [place] 5-325 mg 00 :00 (eight) Medical tablet hours as Branch needed for Pain (scale 7-10) or Pain unrelieved by non-narcot ic analgesics . Mirena (52 Mirena (52 Yes Caitlin not Common MG) MG) Floyd defined [facility] Trazodone Trazodone Yes Caitlin not Co mmon HCl HCl Floyd defined [facility] Vital Signs Vital Name Observation Time Observation Value Comments Source Systolic blood 2022-04-17 23:21:00 116 [facility] Diastolic blood 2022-04-17 23:21:00 75 [facility]Hg[facility] Heart rate 2022-04-17 23:21:00 65 /min [facility] Body temperature 2022-04-17 23:21:00 36.56 Mohini [facility] Respiratory rate 2022-04-17 23:21:00 17 /min [facility] Body weight 2022-04-17 23:21:00 72.576 kg [facility] BMI 2022-04-17 23:21:00 26.63 kg/m2 [facility] Oxygen saturation in 2022-04-17 23:21:00 98 /min University of Arterial blood by [facility] Pulse oximetry Branch Systolic blood 2022-02-17 16:44:00 114 mm[Hg] Univer sity of pressure [place] [facility] Diastolic blood 2022-02-17 16:44:00 75 mm[Hg] Unive rsity of pressure [place] [facility] Body temperature 2022-02-17 16:44:00 36.67 Mohini Univ ersity of [place] [facility] Respiratory rate 2022-02-17 16:44:00 16 /min Univ ersity of [place] [facility] Body height 2022-02-17 16:44:00 165.1 cm Universi ty of [place] [facility] Body weight 2022-02-17 16:44:00 68.811 kg Universi ty of [place] [facility] BMI 2022-02-17 16:44:00 25.24 kg/m2 Universi ty of [place] [facility] Systolic blood 2021-09-23 16:16:00 109 mm[Hg] Univer sity of pressure [place] [facility] Diastolic blood 2021-09-23 16:16:00 65 mm[Hg] Unive rsity of pressure [place] [facility] Heart rate 2021-09-23 16:16:00 71 /min Universi ty of [place] [facility] Body temperature 2021-09-23 16:16:00 36.44 Mohini Univ ersity of [place] [facility] Body height 2021-09-23 16:16:00 165.1 cm Universi ty of [place] [facility] Body weight 2021-09-23 16:16:00 73.029 kg Universi ty of [place] [facility] BMI 2021-09-23 16:16:00 26.79 kg/m2 Universi ty of [place] [facility] Oxygen saturation in 2021-09-23 16:16:00 95 /min [facility] Arterial blood by [facility] Pulse oximetry Branch Procedures Procedure Date / Time Performed Performing Clinician Duncan e CT CERVICAL SPINE WO 2022-04-01 14:52:00 Requisition, Paper Univ [facility] Medical Branch Encounters Start End Encounter Admission Attending Care Care Encounter Source Date/Time Date/Time Type Type Clinicians Facility Department ID 2021-12-12 Outpatient [facility] [id number] [place] 09:23:03 [id number] Health 2021-12-11 Outpatient [facility] [id number] [place] 08:55:39 [id number] Health 2022-04-19 2022-04-19 Telephone Jaky [facility] [id number] Univers 00:00:00 00:00:00 Joanie Masher [id number] it y of [facility] [id number] Eddie as JOSE?BLEA [id number] [address] MEDICAL OFFICE [facility] 2022-04-17 2022-04-17 Outpatient R BLAIRDenia [facility] [id number] Univers 17:00:00 17:27:08 JOANIE logan [facility] 2022-04-17 2022-04-17 [facility] 1.2.840.114 [id number] Univers 17:00:00 17:27:08 Care Unknown, [facility] HEALTH [id number] ity of [place] [id number] Eddie as JOSE?BLEA [id number] [address] OFFICE [facility] 2022-04-17 2022-04-17 Letter Jaky [facility] 1.2.840.114 [id number] Univers 00:00:00 00:00:00 (Out) Joanie Masher [id number] it y of [place] [id number] Eddie as JOSE?BLEA [id number] [address] OFFICE [facility] 2022-04-01 2022-04-01 Outpatient R RADIOLOGY [facility] [id number] Univers 08:10:56 23:59:00 ity of [facility] 2022-04-01 2022-04-01 Hospital Radiology [facility] 1.2.840.114 [id number] Univers 08:10:56 23:59:00 Encounter [place] [id number] ity of [place].2.686 [place] [id number] [address] 2022-02-17 2022-02-17 Outpatient R VERONICA [facility] [id number] Univers 10:00:00 11:04:59 LORENZA ity [facility] 2022-02-17 2022-02-17 Urgent Lorenza Barrientos [facility] 1.2.840.114 [id number] Univers 10:00:00 11:04:59 Care Unknown, [facility] HEALTH [id number] ity of [place] [id number] Eddie as JOSE?BLEA [id number] [address] OFFICE [facility] 2022-02-17 2022-02-17 Maninder Barrientos [facility] 1.2.840.114 [id number] Univers 00:00:00 00:00:00 (Out) [facility] [id number] it y of [facility] [id number] Eddie as JOSE?BLEA [id number] [address] 2021-12-12 2021-12-12 Outpatient [facility] [id number] [place] 12:30:00 14:22:38 Health 2021-12-12 2021-12-12 Office [facility] 1.2.840.114 [id number] [place] 12:30:00 14:22:28 Visit JUDITH YBARRA 350.1.13.58 H [facility] 9.2.7.2.686 [place] 0 [id number] 2021-09-24 2021-09-24 Telephone Ayo [facility] [id number] Univers 00:00:00 00:00:00 [facility] [id number] it y of [place]2.7.2.686 [place] - [id number] [address] 2021-09-23 2021-09-23 Office Ayo [facility] 1.2.840.114 [id number] Univers 10:15:00 11:36:02 Visit Rebecayvonne CAMERON 350.1.13.10 i ty of [place] 4.2.7.2.686 [place] [id number] [address] 2021-09-23 2021-09-23 Outpatient R AYO [facility] [id number] Univers 10:15:00 11:36:02 REBECA logan [facility] 2021-09-23 2021-09-23 Outpatient R AYO [facility] [id number] Univers 10:15:00 10:15:00 REBECA logan [facility] 2021-09-23 2021-09-23 Letter Ayo [facility] 1.2.840.114 [id number] Univers 00:00:00 00:00:00 (Out) Rebeca FIGUEREDOMARGARITA 350.1.13.10 i ty of [place] [facility] 4.2.7.[place] [id number] Me dical NAL 419 Branch [facility] 2021-09-20 2021-09-20 Orders Doctor YAYO 1.2.840.114 [id number] Univers 00:00:00 00:00:00 Only Unassigned, FREDI 350.1.13.10 ity of [place] [facility] 4.2.7.2.686 Eddie as [id number] [facility] 009 Branch 2021 2021 Office [place] [facility] 1.2.840.114 [id number] Univers 08:00:00 08:30:00 Visit Falguni LOPEZ 350.1.13.10 it y of [place] 4[place].2.[place] [id number] [facility] 134 Branch 2021 2021 Outpatient R FALGUNI BEST [facility] B [id number] Univers 08:00:00 08:00:00 FALGUNI BEST [facility] 2021 2021 Outpatient R FALGUNI BEST [facility] B [id number] Univers 08:00:00 08:00:00 FALGUNI BEST [facility] 2020-09-12 2020-09-12 Outpatient EL Grace HCACL MILO G00 [id number] [facility] 12:00:00 12:00:00 gerson Sanju 74 [facility] 2020-09-04 2020-09-04 Outpatient EL Katteestelita HCAPM MILO LA0 [id number] [facility] 12:00:00 12:00:00 a, Sanju 05 Carol Ann an [facility] 2019-03-23 2019-03-23 Outpatient EL UNDEFINED [facility] MILO [id number] [facility] 12:00:00 12:00:00 [facility] 2017-09-01 2017-09-01 Out[facility] [id number] Common 11:15:00 11:15:00 [facility] 2017-08-19 2017-08-19 Out[facility] [id number] Common 16:51:00 16:51:00 [facility] 2017-08-11 2017-08-11 Outpatient [facility] [id number] Common 13:45:00 13:45:00 [facility] 2017-07-21 2017-07-21 Outpatient [facility] [id number] Common 10:00:00 10:00:00 [facility] Results Test Description Test Time Test Comments Results Result Comments Source - UGI W/O KUB 2008-07-07 08:36:00 [facility])Name: DANUTAJaciFISH SANDOVAL : 1980 Sex: F FAX: Sukumar Colmenares [phone] [place]: B St: UNK Name: BARRETT LUZ [facility] : 1980 Age/S: 27/F [address] [facility]: [id number] Loc: [place] [address] Phys: Sukumar Mejias MD Acct: [id number] Dis Date: Status: UNK PHONE #: [phone] Exam Date: 07/07/2008814 FAX #: [phone] Reason: UGI IN AM W/GASTROGGRAFFIN OR THIN BARIU EXAMS: CPT CODE: [id number] XR UGI W/O KUB 32118 HISTORY: Gastric bypass. No evidence of obstruction [...] By: [email or web address] Orig Print D/T: S: 07/07/2008 (0738) PAGE 1 Signed Report
--- NOTE | 2022-09-10 00:22 | ER ---
Nurse's Notes [facility] Name: Sarmad Tao Age: 42 yrs Sex: Female : 1980 Arrival Date: 09/09/2022 Time: 21:57 Bed IW3 Private MD: Diagnosis: Presentation: 09/09 22:25 Chief complaint: Patient states: patient diagnosis h pyloric. prescribe nitrofurrin, kl began last night. woke up this am tingling, itching feeling all over. lower abdomen, pelvic pain radiating to left flank + nausea. Coronavirus screen: Vaccine status: Patient reports receiving the 2nd dose of the covid vaccine. Ebola Screen: No symptoms or risks identified at this time. 22:25 Method Of Arrival: Ambulatory 22:25 Acuity: [place] 3 09/10 00:21 Note pt not in lobby. kl Historical: Vital Signs: 09/09 22:25 BP 111 / 89; Pulse 75; Resp 16; Temp 97.8; Pulse Ox 100% ; Weight 68.95 kg; Height 5 kl ft. 5 in. ; Pain 10/10; 22:25 Body Mass Index 25.29 (68.95 kg, 165.1 cm) kl 22:25 Pain Scale: Adult ED Course: 21:59 Patient arrived in ED. [email or web address] 22:16 Matt Sharif PA is PHCP. cp 22:16 Yariel Paige MD is Attending Physician. cp 22:28 Triage completed. kl Administered Medications: No medications were administered Outcome: 09/10 00:21 Patient left the ED. Signatures: Lian Feldman RN RN Matt Lentz PA PA cp Jeffries, Jennifer [email or web address] Corrections: (The following items were deleted from the chart) 09/09 22:29 22:28 PMHx: Depression; kl kl 22:29 22:28 PMHx: neuropathy; kl kl 22:29 22:28 PMHx: HYPOGLYCEMIA; kl kl 22:29 22:28 PMHx: T10-S1 Herniated/Bulging Disc; kl kl 22:29 22:28 PMHx: Migraines; kl kl
[2022-09-10 02:08] VITALS: BP 111/89; TEMP 97.8; O2SAT 100
== END 2022-09-10 00:21 | disposition left against medical advice (07) ==
LOC: ER 21:57
DX: L29.8 Other pruritus (principal); R10.32 Left lower quadrant pain; R11.0 Nausea
CPT/HCPCS: 99281

== ENCOUNTER 2024-04-20 13:58 | Emergency (ER) | payer OTHER ==
--- OUTSIDE RECORDS SUMMARY | 2024-04-20 14:02 | XMS REPORT | Continuity of Care Document ---
Author Name Unknown Address [address] [place] [address] [facility] Address 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 Electric Motor Repairing Supervisor Name Role Phone Herlinda MATA, Sanju Primary Care Physician [phone] FRANCHESCA CHAUDHARY Attending Clinician Unavailable MARGO SALGUERO Attending Clinician Unavailable IRMA STARKEY Attending Clinician Unavailable Irma Aguilar Attending Clinician [phone] Unknown, Attending Attending Clinician Unavailab le LAB61 Attending Clinician Unavailable GRETEL LIMON Attending Clinician Unavailable SUZANNA, AMITA Kevin Attending Clinician Unavailable Referred, Self Attending Clinician Unavailable MATIAS SEWELL Attending Clinician Unavailable Donato MONOGRAM MACHINE OPERATOR, Matias Attending Clinician [phone] Unknown, Attending Attending Clinician Unavailab KELVIN Lovell Attending Clinician Unavailable Kelvin Wilson PA-C Attending Clinician [phone] Doctor Unassigned, [place] Attending Clinician U RICARDO Anderson Attending Clinician Unavailable GWEN TROY Attending Clinician Unavailable GWEN TROY Attending Clinician Unavailable JENNIFER ESCOBAR Attending Clinician Unavailable Jennifer Escobar MD Attending Clinician [phone] Ebrahim MONOGRAM MACHINE OPERATORIrma Lowe Attending Clinician [phone] RADIOLOGY Attending Clinician Unavailable Radiology Attending Clinician Unavailable LESLIE BARRIENTOS Attending Clinician Unavailable Leslie Barrientos MD Attending Clinician [phone] JAMIE VANESSA Attending Clinician Unavail able Rebeca Rollins MD Attending Clinician REBECA ROLLINS Attending Clinician Unavail able Suraj Best NP Attending Clinician SURAJ BEST Attending Clinician Unavaila Sanju Swann Attending Clinician Unavailgerson loza UNDEFINED Attending Clinician Unavailable FRANCHESCA CHAUDHARY Admitting Clinician Unavailable Sanju Pate Admitting Clinician KELVIN Gunter Admitting Clinician Unavailable JENNIFER ESCOBAR Admitting Clinician Unavailable LISSY RICK Admitting Clinician Unavailab gabby Physician, No Primary or Family Admitting Clinic michelle Unavailable Payers Payer Name Policy Type Policy Number Effective Date Expirati on Date Source [employer] [facility] [id number] 2011 00:00:00 [email or web address] [id number] 2021 00:00:00 [employer] 2 [id number] 2024 00:00:00 CIG[employer] II [id number] 2014 00:00:00 Problems Condition Name Condition Details Condition Category Status Onset Date Resolution Date Last Treatment Date Treating Clinician Comments Source Calculus of gallbladde r without cholecysti tis without obstructio n Calculus of gallbladde r without cholecysti tis without obstructio n Disease Active 16 00:00: 00 Overview: Formattin g of this note might be different from the original. Added automatic ally from request for surgery [id number] [facility] Right elbow pain Right elbow pain Disease Active 12-12 00:00: 00 [facility] Lateral epicondyli tis of right elbow Lateral epicondyli tis of right elbow Disease Active 12-12 00:00: 00 Last Assessmen t & Plan: Formattin g of this note might be different from the original. Recommend occupatio nal therapy, physical therapy for her right elbow placed in universal wrist brace today. Discussed possible PRP injection . Patient verbalize jefferson gandhi sample of Pennsaid provided today. And sent to both her local and her mail order pharmacy. [facility] Left foot pain Left foot pain Disease Active 09-23 00:00: 00 [facility] Sciatica Sciatica Disease Active 09-17 00:00: 00 [facility] Chronic pain Chronic pain Disease Active 09-17 00:00: 00 [facility] History of abnormal cervical Pap smear History of abnormal cervical Pap smear Problem Active [facility] IUD (intrauter ine device) in place IUD (intrauter ine device) in place Problem Active [facility] Vaginal symptom Vaginal symptom Problem Active [facility] HSV (herpes simplex virus) anogenital infection HSV (herpes simplex virus) anogenital infection Diagnosis Active [facility] History of shingles History of shingles Diagnosis Active [facility] Allergies, Adverse Reactions, Alerts Allergy Name Allergy Type Status Severity Reaction(s) Onset Date Inactive Date Treating Clinician Comments Source METHYLPR EDNISOLO NE SODIUM SUCC DRUG Active Swelling 09-09 00:00: 00 [facility] NITROFUR ANTOIN MONOHYD/ M-CRYST DRUG Active ITCHING 09-09 00:00: 00 [facility] Nitrofur antoin Monohyd/ M-Cryst Propensi ty to adverse reaction s Active Other - See comments 2023-0 6-06 00:00: 00 Skin burning [facility] Methylpr ednisolo ne Sodium Succ Propensi ty to adverse reaction s Active Swelling 2022-0 6 00:00: 00 [facility] Nitrofur antoin Sodium Propensi ty to adverse reaction s Active Itching 0 606 00:00: 00 Other Reaction( s): Other - See comments Skin burning Tyesha Steward - Externa l Methylpr ednisolo ne Propensi ty to adverse reaction s Active Swelling 0 908 00:00: 00 Tyesha Godoyold - Externa l Hydrocod one Propensi ty to adverse reaction s Active Hives 0 30 00:00: 00 Tyesha Godoyold - Externa l ZOLPIDEM DRUG INGREDI Active Hallucinates 0 07-26 00:00: 00 [facility] Zolpidem Propensi ty to adverse reaction s Active Hallucinatio ns 0 07-26 00:00: 00 Tyesha Steward - Cornela l AMITRIPT YLINE DRUG INGREDI Active Palpitations 0 14 00:00: 00 [facility] Amitript yline Propensi ty to adverse reaction s Active PALPITATIONS 14 00:00: 00 Other Reaction( s): Unknown Tyesha Steward - Externa l No Known Allergie s DA Active U 12-16 00:00: 00 [facility] No Known Allergie s DA Active U 12-16 00:00: 00 [facility] Duloxeti ne Propensi ty to adverse reaction s to drug Active Hallucinatio ns 06-25 00:00: 00 [facility] DULOXETI NE DRUG INGREDI Active Hallucinates 06-25 00:00: 00 [facility] Duloxeti ne Propensi ty to adverse reaction s Active Hallucinatio ns 06-25 00:00: 00 Tyesha Steward - Cornela l CIPRO DA Active U 07-06 00:00: 00 [facility] No Known Contrast Allergie s DA Active U 07-06 00:00: 00 [facility] No Known Food Allergie s DA Active U 07-06 00:00: 00 [facility] No Known Other Allergie s DA Active U 07-06 00:00: 00 [facility] SOMA DA Active U 07-06 00:00: 00 [facility] carisopr odol DA Active U 07-05 00:00: 00 [facility] ciproflo xacin DA Active U 07-05 00:00: 00 [facility] Hydrocod one Allergy to substanc e Active [facility] amitript yline Adverse Reaction Active Info Not Available [facility] Social History Social Habit Start Date Stop Date Quantity Comments Source ASSERTION Possible Tyesha Steward - External Sexual orientation Alek Steward - External Tobacco use and exposure 2024-04-20 00:00:00 2024-04-20 00:00:00 Smokeless tobacco non-user Tyesha Steward - External Alcoholic beverage intake 2024-04-20 00:00:00 2024-04-20 00:00:00 Current drinker of alcohol (finding) Tyesha Steward - External History of Social function 2024-04-20 00:00:00 2024-04-20 00:00:00 yTesha Steward - External Education 2024-04-20 00:00:00 2024-04-20 00:00:00 16 Tyesha Steward - External Alcohol Comment 2024-04-20 00:00:00 2024-04-20 00:00:00 rarely Tyesha Steward - External Sex 2024-02-12 08:47:22 2024-02-12 08:47:22 Female (finding) Tyesha Steward - External Exposure to SARS-CoV-2 (event) 2022-04-07 00:00:00 2022-04-17 17:12:00 Not sure [facility] Alcohol intake 2021-12-12 00:00:00 2021-12-12 00:00:00 .14 /d [facility] Sex assigned at 1980 00:00:00 1980 00:00:00 Tyesha Marroquin Smoking Status Start Date Stop Date Source Never smoked tobacco Tyesha Marroquin Medications Ordered Medication Name Filled Medication Name Start Date Stop Date Current Medication? Ordering Clinician Indication Dosage Frequency Signature (SIG) Comments Components Source Clonazepam 1 MG oral Tablet 1-08 00:00: 00 Yes TAKE 1 TABLET BY MOUTH ONCE DAILY FOR 15 DAYS Tyesha fuentes Albuterol HFA 108 (90 Base) MCG/ACT IN AERS 2023-04 2- 00:00: 00 Yes 2{puff} Q.25D Inhale 2 puffs into the lungs every 6 hours as needed. Tyesha fuentes promethazin e-dextromet horphan 6.25-15 mg/5 mL syrup 2023-04- 00:00: 00 03-21 05:59 :00 Yes [id number] 10mL Take 10 mL by mouth 4 (four) times daily for 10 days. [facility] predniSONE 20 mg tablet 2023-04 00:00: 00 03-16 05:59 :00 Yes [id number] 40mg Take 2 tablets by mouth in the morning for 5 days. [facility] QUEtiapine Fumarate 50 MG oral TABLET SR 24 HR 2023-04 00:00: 00 04-20 00:00 :00 No TAKE 2 TABLETS BY MOUTH ONCE DAILY IN THE EVENING Tyesha fuentes Quetiapine Fumarate 50 MG oral Tablet 2023-04 0-31 00:00: 00 Yes 50mg QD Take 1 tablet (50 mg total) by mouth nightly. Tyesha fuentes Clonazepam 0.5 MG oral Tablet 2023-04 0-10 00:00: 00 04-20 00:00 :00 No .5mg QD Take 1 tablet (0.5 mg total) by mouth daily. Tyesha fuentes propranolol 10 mg tablet propranolol 10 mg tablet 7-25 00:00: 00 No propranolo l 10 mg tablet [facility] cyclobenzap rine 5 mg tablet 1-14 00:00: 00 Yes [id number] 5mg Take 1 tablet by mouth 2 (two) times daily as needed for Muscle Spasms. [facility] promethazin e-dextromet horphan 6.25-15 mg/5 mL syrup 1-14 00:00: 00 Yes [id number] 5mL Take 5 mL by mouth 4 (four) times daily as needed for Cough. [facility] NaCl 0.9% (NS) bolus infusion 1,000 mL 2022-04 16:30: 00 04-02 18:32 :00 No 1000mL at 999 mL/hr, 1,000 mL, IV Infusion, ONCE, 1 dose, [facility] Thu04/02/23 at 1030[facility] 15 mg 2022-04 16:30: 00 04-02 16:04 :00 No 15mg 15 mg, Slow IV Push, ONCE, 1 dose, On Thu04/02/23 at 1030, [facility] diphenhydrA MINE (BENADRYL) injection 25 mg 2022-04 15:45: 00 04-02 16:05 :00 No 25mg 25 mg, Slow IV Push, ONCE, 1 dose, On Thu04/02/23 at 0945, STAT [facility] metoclopram júnior HCl (REGLAN) injection 10 mg 2022-04 15:45: 00 04-02 16:04 :00 No 10mg 10 mg, Slow IV Push, ONCE, 1 dose, On Thu04/02/23 at 0945, AMADA [facility] ketorolac (TORADOL) injection 30 mg 09-10 08:00: 00 09-10 06:55 :00 No 30mg 30 mg, Slow IV Push, ONCE, 1 dose, On Thu09/10/22 at 0300, Routine [facility] iopamidol (ISOVUE 370-500 mL) injection 75 mL 09-10 07:00: 00 09-10 06:01 :00 No [id number] 75mL 75 mL, Intravenou s, ONCE, 1 dose, On Thu09/10/22 at 0200, Routine [facility] FENTanyl PF (SUBLIMAZE (PF)) injection 50 mcg 09-10 06:00: 00 09-10 05:05 :00 No 50ug 50 mcg, Slow IV Push, ONCE, 1 dose, On Thu09/10/22 at 0100, Routine [facility] ondansetron (ZOFRAN (PF)) injection 4 mg 09-10 05:00: 00 09-10 05:05 :00 No 4mg 4 mg, Slow IV Push, ONCE, 1 dose, On Thu09/10/22 at 0000, AMADA [facility] ketorolac 10 mg tablet 09-10 00:00: 00 Yes [id number] 10mg Take 1 tablet by mouth every 6 (six) hours as needed for Pain (scale 7-10). [facility] traMADoL (ULTRAM) 50 mg tablet 09-10 00:00: 00 04-19 00:00 :00 No [id number] 50mg Take 1 tablet by mouth every 6 (six) hours as needed for Pain (scale 7-10). Indication s: acute pain [facility] dicyclomine 10 mg capsule 04-19 00:00: 00 Yes [id number] 10mg Take 1 capsule by mouth 4 (four) times daily. [facility] dicyclomine 10 mg capsule 04-17 00:00: 00 04-19 00:00 :00 No [id number] 10mg Take 1 capsule by mouth 4 (four) times daily for 5 days. [facility] ketorolac (TORADOL) injection 30 mg 2021-04 17:45: 00 02-17 17:09 :00 No [id number] 4 30mg [facility] methocarbam oL 500 mg tablet 2021-04 00:00: 00 Yes [id number] 4 500mg Take 1 tablet by mouth 4 (four) times daily. [facility] Diclofenac Sodium (Pennsaid) 2 % solution 12-12 00:00: 00 01-12 04:59 :00 No [id number] 9107 20mg Q.5D Apply 20 mg topically 2 (two) times a day. [facility] gabapentin (Neurontin) 600 MG tablet 12-05 00:00: 00 Yes [facility] ubrogepant (UBRELVY ORAL) 07-26 08:53: 04 Yes Take by mouth. [facility] betamethaso ne dipropionat e 0.05 % cream 07-22 00:00: 00 Yes [facility] clonazePAM 0.25 mg disintegrat ing tablet 07-17 00:00: 00 Yes [facility] QUEtiapine 50 mg tablet 07-17 00:00: 00 Yes [facility] propranoloL 20 mg tablet 07-17 00:00: 00 Yes [facility] buPROPion SR 100 mg SR tablet 07-17 00:00: 00 Yes [facility] topiramate 50 mg tablet 07-08 00:00: 00 Yes [facility] AIMOVIG AUTOINJECTO R 70 mg/mL AtIn 06-18 00:00: 00 Yes [facility] QUEtiapine 25 mg tablet 05-21 00:00: 00 02-17 00:00 :00 No [facility] Valacyclovi r HCl Valacyclovi r HCl 09-01 00:00: 00 09-11 00:00 :00 No Caitlin Floyd 1 tablet [facility] ibuprofen (MOTRIN) 400 mg tablet 06-25 00:00: 00 Yes 400mg Take 1 Tab by mouth every 8 (eight) hours as needed for Pain (scale 1-3) with oral narcotics or Pain unrelieved by Tylenol. [facility] HYDROcodone -acetaminop hen (NORCO) 5-325 mg tablet 06-25 00:00: 00 02-17 00:00 :00 No 1{tbl} Take 1 Tab by mouth every 8 (eight) hours as needed for Pain (scale 7-10) or Pain unrelieved by non-narcot ic analgesics . [facility] Mirena (52 MG) Mirena (52 MG) Yes Caitlin Floyd not defined [facility] Trazodone HCl Trazodone HCl Yes Caitlin Floyd not defined [facility] Ubrelvy 100 mg tablet Ubrelvy 100 mg tablet No Ubrelvy 100 mg tablet [facility] aripiprazol e 10 mg tablet TAKE 1 TABLET BY MOUTH ONCE DAILY AT BEDTIME aripiprazol e 10 mg tablet TAKE 1 TABLET BY MOUTH ONCE DAILY AT BEDTIME No aripiprazo le 10 mg tablet TAKE 1 TABLET BY MOUTH ONCE DAILY AT BEDTIME [facility] IBU 600 mg tablet Take 1 tablet 3 times a day by oral route. IBU 600 mg tablet Take 1 tablet 3 times a day by oral route. No 1 TID IBU 600 mg tablet Take 1 tablet 3 times a day by oral route. [facility] Immunizations Ordered Immunization Name Filled Immunization Name Date Status Comments Source Tdap- (Boostrix, Adacel) Unknown Completed Tyesha Steward - External PPD-Protein Derivative (Purified)- Tuberculin Unknown Completed Tyesha Steward - External Vital Signs Vital Name Observation Time Observation Value Comments S fredericce Systolic blood pressure 2024-04-20 19:42:00 116 mm[Hg] Tyesha Magdaleno ld - External Diastolic blood pressure 2024-04-20 19:42:00 59 mm[Hg] Tyesha Magdaleno ld - External Heart rate 2024-04-20 19:42:00 111 /min Daren Godoyold - External Body temperature 2024-04-20 19:42:00 37.06 Mohini Tyesha Steward - External Respiratory rate 2024-04-20 19:42:00 15 /min Tyesha Steward - External Body height 2024-04-20 19:42:00 162.6 cm Marcy [place] Seybold - External Body weight 2024-04-20 19:42:00 79.379 kg Marcy ey Seybold - External BMI 2024-04-20 19:42:00 30.04 kg/m2 Marcy ey Seybold - External Systolic blood pressure 2024-03-11 00:17:00 118 mm[Hg] [facility] Diastolic blood pressure 2024-03-11 00:17:00 80 mm[Hg] [facility] Heart rate 2024-03-11 00:17:00 82 /min [facility] Body temperature 2024-03-11 00:17:00 36.72 Mohini [facility] Respiratory rate 2024-03-11 00:17:00 17 /min [facility] Body weight 2024-03-11 00:17:00 81.149 kg [facility] BMI 2024-03-11 00:17:00 29.77 kg/m2 [facility] Oxygen saturation in Arterial blood by Pulse oximetry 2024-03-11 00:17:00 100 /min [facility] Height 2023-10-29 00:00:00 65 [in_i] [facility] BP Systolic 2023-10-29 00:00:00 98 mm[Hg] [facility] BMI (Body Mass Index) 2023-10-29 00:00:00 26.4 kg/m2 [facility] BP Diastolic 2023-10-29 00:00:00 66 mm[Hg] [facility] Body Weight 2023-10-29 00:00:00 158.4 [lb_av] [facility] Systolic blood pressure 2023-04-19 17:57:00 116 mm[Hg] [facility] Diastolic blood pressure 2023-04-19 17:57:00 80 mm[Hg] [facility] Heart rate 2023-04-19 17:57:00 98 /min [facility] Body temperature 2023-04-19 17:57:00 37.39 Mohini [facility] Body height 2023-04-19 17:57:00 165.1 cm [facility] Body weight 2023-04-19 17:57:00 71.668 kg [facility] BMI 2023-04-19 17:57:00 26.29 kg/m2 [facility] Oxygen saturation in Arterial blood by Pulse oximetry 2023-04-19 17:57:00 97 /min [facility] Systolic blood pressure 2023-04-02 18:31:00 107 mm[Hg] [facility] Diastolic blood pressure 2023-04-02 18:31:00 82 mm[Hg] [facility] Heart rate 2023-04-02 18:31:00 64 /min [facility] Respiratory rate 2023-04-02 18:31:00 16 /min [facility] Oxygen saturation in Arterial blood by Pulse oximetry 2023-04-02 18:31:00 100 /min [facility] Body temperature 2023-04-02 15:26:00 36.72 Mohini [facility] Body height 2023-04-02 15:26:00 165.1 cm [facility] Body weight 2023-04-02 15:26:00 70.308 kg [facility] BMI 2023-04-02 15:26:00 25.79 kg/m2 [facility] Systolic blood pressure 2022-09-10 07:29:21 112 mm[Hg] [facility] Diastolic blood pressure 2022-09-10 07:29:21 84 mm[Hg] [facility] Heart rate 2022-09-10 07:29:21 63 /min [facility] Respiratory rate 2022-09-10 07:29:21 18 /min [facility] Oxygen saturation in Arterial blood by Pulse oximetry 2022-09-10 07:29:21 100 /min [facility] Body temperature 2022-09-10 04:24:00 37.11 Mohini [facility] Body height 2022-09-10 04:24:00 153.7 cm [facility] Body weight 2022-09-10 04:24:00 69.809 kg [facility] BMI 2022-09-10 04:24:00 29.56 kg/m2 [facility] Systolic blood pressure 2022-04-17 23:21:00 116 mm[Hg] [facility] Diastolic blood pressure 2022-04-17 23:21:00 75 mm[Hg] [facility] Heart rate 2022-04-17 23:21:00 65 /min [facility] Body temperature 2022-04-17 23:21:00 36.56 Mohini [facility] Respiratory rate 2022-04-17 23:21:00 17 /min [facility] Body weight 2022-04-17 23:21:00 72.576 kg [facility] BMI 2022-04-17 23:21:00 26.63 kg/m2 [facility] Oxygen saturation in Arterial blood by Pulse oximetry 2022-04-17 23:21:00 98 /min [facility] Systolic blood pressure 2022-02-17 16:44:00 114 mm[Hg] [facility] Diastolic blood pressure 2022-02-17 16:44:00 75 mm[Hg] [facility] Body temperature 2022-02-17 16:44:00 36.67 Mohini [facility] Respiratory rate 2022-02-17 16:44:00 16 /min [facility] Body height 2022-02-17 16:44:00 165.1 cm [facility] Body weight 2022-02-17 16:44:00 68.811 kg [facility] BMI 2022-02-17 16:44:00 25.24 kg/m2 [facility] Systolic blood pressure 2021-09-23 16:16:00 109 mm[Hg] [facility] Diastolic blood pressure 2021-09-23 16:16:00 65 mm[Hg] [facility] Heart rate 2021-09-23 16:16:00 71 /min [facility] Body temperature 2021-09-23 16:16:00 36.44 Mohini [facility] Body height 2021-09-23 16:16:00 165.1 cm [facility] Body weight 2021-09-23 16:16:00 73.029 kg [facility] BMI 2021-09-23 16:16:00 26.79 kg/m2 [facility] Oxygen saturation in Arterial blood by Pulse oximetry 2021-09-23 16:16:00 95 /min [facility] Procedures Procedure Date / Time Performed Performing Clinician Source XR CHEST 2 VW 2024-03-11 01:09:53 Irma Starkey [facility] POCT MOLECULAR FLU 2024-03-11 00:45:00 Irma Starkey [facility] POCT SARS-COV-2 ANTIGEN (BINAX NOW) 2024-03-10 00:00:00 Irma Starkey [facility] XR CHEST 2 VW 2023-04-19 18:20:00 Matias Sewell [facility] SEDIMENTATION RATE 2023-04-02 16:40:00 Kelvin Wilson [facility] CBC WITH DIFF 2023-04-02 16:40:00 Kelvin Wilson [facility] CT HEAD WO CONTRAST 2023-04-02 16:27:00 Kelvin Wilson [facility] COMP. METABOLIC PANEL ([id number]) 2023-04-02 15:55:00 Kelvin Wilson [facility] POCT TEST 2023-04-02 15:50:00 Althea Wilsonshua [facility] CONSENT/REFUSAL FOR DIAGNOSIS AND TREATMENT 2023-04-02 15:21:25 Doctor Unassigned, [place] [facility] ASSIGNMENT OF BENEFITS 2022-09-18 20:40:31 Docto r Unassigned, [place] [facility] POCT TEST 2022-09-10 04:50:00 Jennifer Escobar [facility] LIPASE 2022-09-10 04:49:00 Jennifer Escobar [facility] COMP. METABOLIC PANEL ([id number]) 2022-09-10 04:49:00 Jennifer Escobar [facility] CBC WITH DIFF 2022-09-10 04:49:00 [facility]obar [facility] URINALYSIS 2022-09-10 04:49:00 Jennifer Escobar [facility] NOTICE OF PRIVACY PRACTICES 2022-09-10 04:09:15 Doctor Unassigned, [place] [facility] CONSENT/REFUSAL FOR DIAGNOSIS AND TREATMENT 2022-09-10 04:08:47 Doctor Unassigned, [place] [facility] CT CERVICAL SPINE WO CONTRAST 2022-04-01 14:52:00 Requisition, Paper [facility] Encounters Start Date/Time End Date/Time Encounter Type Admission Type Attending [facility] Care Facility Care Department Encounter ID Source 2022-09-19 09:08:23 Outpatient FRANCHESCA LÓPEZ [facility] ISABELLA [id number] [facility] 2021-12-12 09:23:03 Outpatient [facility] [id number] [facility] 2021-12-11 08:55:39 Outpatient [facility] [id number] [facility] 2024-04-20 14:45:00 2024-04-20 14:45:00 Outpatient MARGO SALGUERO [id number] [facility] 2024-04-20 14:00:00 2024-04-20 14:00:00 Outpatient MARGO SALGUERO [id number] [facility] 2024-03-10 19:00:05 2024-03-10 23:59:00 Outpatient R MARK BHAVINSUSAN [facility] [id number] [facility] 2024-03-10 19:00:05 2024-03-10 23:59:00 [facility] [id number] [facility] 2024-03-10 18:20:00 2024-03-10 18:40:00 Urgent Care RafaelIrma ortega Kirk, Attending [facility] [id number] [facility] [facility] 2024-02-15 10:55:00 2024-02-15 10:55:00 Outpatient LAB61 TYESHA TYESHA [id number] Tyesha Steward 2024-02-15 10:00:00 2024-02-15 10:00:00 Outpatient GRETEL LIMON TYESHA [id number] Tyesha Steward 2024-02-12 00:00:00 2024-02-12 00:00:00 Outpatient SUZANNAAMITA Guidry TYESHA [id number] Tyesha Steward 2023-11-09 00:00:00 2023-11-09 00:00:00 Brielle Abreu, GAS DISPATCHER: [address], [address], [place] [address] , Ph. [facility] - VM_Jessica leach (WAG) [id number] [facility] 2023-10-29 00:00:00 2023-10-29 00:00:00 Blaise Johnson MD: [address], [address], [place] [address] , Ph. [facility] - VM_Jessica leach (WAG) [id number] [facility] e 2023-09-15 08:00:00 2023-09-15 08:00:00 Outpatient EL Referred, Self HCAPM MILO [id number] [facility] 2023-04-19 12:14:33 2023-04-19 23:59:00 Outpatient R MATIAS SEWELL [facility] [id number] [facility] 2023-04-19 12:14:33 2023-04-19 23:59:00 Hospital Encounter Matias Sewell [facility] 1.2.840.114 350.1.13.10 4.2.7.2.686 [id number] [facility] 2023-04-19 11:40:00 2023-04-19 12:19:03 Urgent Care Matias Sewell Unknown, Attending [facility] 1..840.114 350.1.13.10 4.2.7.2.686 [id number] [facility] 2023-04-02 09:26:00 2023-04-02 12:48:00 Emergency X ALTHEA WILSONSHUA [facility] ERT [id number] [facility] 2023-04-02 09:26:00 2023-04-02 12:48:00 Emergency Kelvin Wilson [facility] 1.840.114 350.1.13.10 4.2.7.2.686 [id number] [facility] 2023-01-15 00:00:00 2023-01-15 00:00:00 Patient Secure Msg Doctor Unassigned, [place] [facility] .840.114 350.1.13.10 4.2.7.2.686 [id number] [facility] 2022-09-29 10:45:00 2022-09-29 10:45:00 Outpatient R RICARDO REYES [facility] [id number] [facility] 2022-09-18 15:45:00 2022-09-18 17:17:41 Outpatient R FRANCHESCA CHAUDHARY [facility] [id number] [facility] 2022-09-18 00:00:00 2022-09-18 00:00:00 Orders Only Doctor Unassigned, [place] [facility] 1.840.114 350.1.13.10 4.2.7.2.686 [id number] [facility] 2022-09-09 23:27:00 2022-09-10 02:35:00 Emergency X JENNIFER ESCOBAR [facility] ERT [id number] [facility] 2022-09-09 23:27:00 2022-09-10 02:35:00 Emergency Jennifer Escobar [facility] 1.2.840.114 350.1.13.10 4.2.7.2.686 [id number] [facility] 2022-04-19 00:00:00 2022-04-19 00:00:00 Telephone Irma Starkey [facility] 1.2.840.114 350.1.13.10 4.2.7.2.686 [id number] [facility] 2022-04-17 17:00:00 2022-04-17 17:27:08 Outpatient R IRMA STARKEY [facility] [id number] [facility] 2022-04-17 17:00:00 2022-04-17 17:27:08 Urgent Care Irma Starkey Unknown, Attending [facility] 1.2.840.114 350.1.13.10 4.2.7.2.686 [id number] [facility] 2022-04-17 00:00:00 2022-04-17 00:00:00 Letter (Out) Irma Starkey [facility] 1.2.840.114 350.1.13.10 4.2.7.2.686 [id number] [facility] 2022-04-01 08:10:56 2022-04-01 23:59:00 Outpatient R RADIOLOGY [facility] [id number] [facility] 2022-04-01 08:10:56 2022-04-01 23:59:00 Hospital Encounter Radiology [facility] 1.2.840.114 350.1.13.10 4.2.7.2.686 [id number] [facility] 2022-02-17 10:00:00 2022-02-17 11:04:59 Outpatient R LESLIE BARRIENTOS [facility] [id number] [facility] 2022-02-17 10:00:00 2022-02-17 11:04:59 Urgent Care Leslie Barrientos Unknown, Attending [facility] 1.284.114 350.1.13.10 4.2.7.2.686 [id number] [facility] 2022-02-17 00:00:00 2022-02-17 00:00:00 Letter (Out) [facility] 1.84.114 350.1.13.10 4.2.7.2.686 [id number] [facility] 2021-12-12 12:30:00 2021-12-12 14:22:38 Outpatient [facility] [id number] [facility] 2021-12-12 12:30:00 2021-12-12 14:22:28 Office Visit JAMIE VANESSA [facility] 1 1..840.114 350.1.13.58 9.2.7.2.686 [id number] [facility] 2021-09-24 00:00:00 2021-09-24 00:00:00 Telephone Rebeca Rollins [facility] 1.84.114 350.1.13.10 4.2.7.2.686 [id number] [facility] 2021-09-23 10:15:00 2021-09-23 11:36:02 Office Visit Rebeca Rollins [facility] 1.84.114 350.1.13.10 4.2.7.2.686 [id number] [facility] 2021-09-23 10:15:00 2021-09-23 11:36:02 Outpatient R RBEECA ROLLINS [facility] [id number] [facility] 2021-09-23 10:15:00 2021-09-23 10:15:00 Outpatient R REBCEA ROLLINS [facility] [id number] [facility] 2021-09-23 00:00:00 2021-09-23 00:00:00 Letter (Out) Rebeca Rollins [facility] 1..840.114 350.1.13.10 4.2.7.2.686 [id number] [facility] 2021-09-20 00:00:00 2021-09-20 00:00:00 Orders Only Doctor Unassigned, [place] [facility] 1..840.114 350.1.13.10 4.2.7.2.686 [id number] [facility] 2021 08:00:00 2021 08:30:00 Office Visit Suraj Best [facility] 1..840.114 350.1.13.10 4.2.7.2.686 [id number] [facility] 2021 08:00:00 2021 08:00:00 Outpatient R SURAJ BEST CHERYAL [facility] [id number] [facility] 2021 08:00:00 2021 08:00:00 Outpatient SURAJ MCCRAY CHERYAL [facility] [id number] [facility] 2020-09-12 12:00:00 2020-09-12 12:00:00 Outpatient Sanju Castle MILO [id number] [facility] 2020-09-04 12:00:00 2020-09-04 12:00:00 Outpatient Sanju Castle [id number] [facility] 2019-03-23 12:00:00 2019-03-23 12:00:00 Outpatient EL UNDEFINED HCAPM MILO [id number] [facility] 2017-09-01 11:15:00 2017-09-01 11:15:00 [facility] [id number] [facility] 2017-08-19 16:51:00 2017-08-19 16:51:00 Outpatient [facility] [id number] [facility] 2017-08-11 13:45:00 2017-08-11 13:45:00 Outpatient [facility] [id number] [facility] 2017-07-21 10:00:00 2017-07-21 10:00:00 Outpatient [facility] [id number] [facility] Results Test Description Test Time Test Comments Results Result Comments Source XR Chest 2 vw 2024-03 01:25:4 2 PROCEDURE:XR CHEST 2 VW ORDERING PHYSICIAN: IRMA STARKEY HISTORY: ?Cough TECHNIQUE: PA and Lateral views of the chest were performed. TECHNICAL QUALITY: Adequate COMPARISON: ?None available FINDINGS: Support Devices: ?None.Cardiac Silhouette/Mediastinum/Kim: ?The cardiac, mediastinal, and hilarcontours are within normal limitsLungs/Pleural Spaces: ?There is no focal consolidation. The pleural spacesare clear.Chest Wall/Diaphragm/Upper Abdomen: ?The thoracic musculoskeletalstructures and the upper abdomen are within normal limits. [facility] [id number] 00:50:52* Test Item Value Reference Range Interpretation Comme nts POCT Molecular FluA (test co de = 94480-3) Positive Negative A Lab Interpretation (test cod e = 98559-9) [facility] (COVID-19) Ag [Presence] in Respiratory system specimen by Rapid [id number] 09:31:00* Test Item Value Reference Range Interpretation Comme nts SARS-CoV-2 Antigen (test code = SARS-CoV-2 Antigen) [facility]ptive [facility] [id number] 18:52:21EXAM: XR CHEST 2 VW COMPARISON: 09/10/2022 CT HISTORY: Persistent cough. TECHNIQUE: Frontal and latera l radiographs of the chest are obtained. FINDINGS: Lungs: The lung volumes are ?normal. No focal opacities. No pleuralabnormality. Heart/Mediastinum: The cardiomediastinal silhouette is unremarkable.. Bones and soft tissues: No acute osseous findings are detected. Changes ofprior ACDF partially imaged. Surgical clips overlying the left upperquadrant.[facility] WITH [id number] 17:49:09* Test Item Value Reference Range Interpretation Comme nts WBC (test code = 6690-2) 4.74 See_Comment [[employer]] The system which generated this result transmitted reference range: 4.30 - 11.10 10*3/?L. The reference range was not used to interpret this result as normal/abnormal. RBC (test code = 789-8) 4.51 See_Comment [[employer]] The system which generated this result transmitted reference range: 3.93 - 5.25 10*6/?L. The reference range was not used to interpret this result as normal/abnormal. HGB (test code = 718-7) 13.1 g/dL 11.6-15.0 HCT (test code = 4544-3) 36.5 % 35.7-45.2 MCV (test code = 787-2) 80.9 fL 80.6-95.5 MCH (test code = 785-6) 29.0 pg 25.9-32.8 MCHC (test code = 786-4) 35.9 g/dL 31.6-35.1 H RDW-SD (test code = 79113-5) 43.0 fL 39.0-49.9 RDW-CV (test code = 788-0) 14.6 % 12.0-15.5 PLT (test code = 777-3) 236 See_Comment Few platelet clu mps seen on the smear [Automated message] The system which generated this result transmitted reference range: 166 - 358 10*3/?L. The reference range was not used to interpret this result as normal/abnormal. MPV (test code = 47103-6) 10.8 fL 9.5-12.9 NRBC/100 WBC (test code = 5413129114) 0.0 See_Comment [Automated [employer] ssage] The system which generated this result transmitted reference range: 0.0 - 10.0 /100 WBCs. The reference range was not used to interpret this result as normal/abnormal. NRBC x10^3 (test code = 9127713934) See_Comment [Automated messa ge] The system which generated this result transmitted reference range: 10*3/?L. The reference range was not used to interpret this result as normal/abnormal. GRAN MAT (NEUT) % (test code = 770-8) 44.3 % IMM GRAN % (test code = 1377527216) 0.20 % LYMPH % (test code = 736-9) 42.6 % MONO % (test code = 5905-5) 8.9 % EOS % (test code = 713-8) 2.5 % BASO % (test code = 706-2) 1.5 % GRAN MAT x10^3(ANC) (test code = 6315881570) 2.10 10*3/uL 1.88-7.09 IMM GRAN x10^3 (test code = 3700497013) 0.00-0.06 LYMPH x10^3 (test code = 731-0) 2.02 10*3/uL 1.32-3.29 MONO x10^3 (test code = 742-7) 0.42 10*3/uL 0.33-0.92 EOS x10^3 (test code = 711-2) 0.12 10*3/uL 0.03-0.39 BASO x10^3 (test code = 704-7) 0.07 10*3/uL 0.01-0.07 ELLIPTO/OVAL (test code = 03779-0) 2+ See_Comment A [Automated messa ge] The system which generated this result transmitted reference range: (none). The reference range was not used to interpret this result as normal/abnormal. SPHEROCYTES (test code = 802-9) 1+ A REACT LYMPHS (test code = 2269765583) Moderate TOXIC CHANGES (test code = 803-7) Present A GIANT PLATELETS (test code = 5908-9) Present See_Comment A [Automated messa [employer]] The system which generated this result transmitted reference range: (none). The reference range was not used to interpret this result as normal/abnormal. Lab Interpretation (test code = 31318-6) Abnormal [facility] CenterSedimentation [id number] 17:26:39* Test Item Value Reference Range Interpretation Comme nts ESR (test code = 45566-8) 6 See_Comment [Automated message] The system which generated this result transmitted reference range: 0 - 20 mm/HR. The reference range was not used to interpret this result as normal/abnormal. Lab Interpretation (test code = 80163-9) Normal [facility] WO [id number] 16:35:36CT HEAD WO CONTRAST HISTORY: Headache, sudden, severe COMPARISON: None TECHNIQUE: Unenhanced CT of the head was performed. Sagittal and coronalreformats were obtained. FINDINGS: The ventricles and cerebral sulci are normal in caliber and configuration.No hydrocephalus, midline shift or pathologicalextra-axial fluidcollection is present. The basal cisterns are unremarkable. There is no acute intracranial hemorrhage or significant mass effect. Noparenchymal attenuation abnormality. The cage-white matter differentiationis preserved. The mastoid air cells and paranasal air sinuses are clear. Thecalvariumand central skull base are unremarkable.[facility]. METABOLIC PANEL (20545)2023-04-02 16:31:42* Test Item Value Reference Range Interpretation Comme nts NA (test code = 3257419802) 140 mmol/L 135-145 K (test code = 6739911495) 3.8 mmol/L 3.5-5.0 CL (test code = 0936910710) 107 mmol/L 98-108 CO2 TOTAL (test code = 5217872717) 23 mmol/L 23-31 AGAP (test code = 5029757978) 10 2-16 BUN (test code = 7053250371) 10 mg/dL 7-23 GLUCOSE (test code = 9523164458) 69 mg/dL 70-110 L CREATININE (test code = 2065051210) 1.05 mg/dL 0.50-1.04 H TOTAL BILI (test code = 9094947056) 0.7 mg/dL 0.1-1.1 CALCIUM (test code = 0721534170) 9.9 mg/dL 8.6-10.6 T PROTEIN (test code = 5254419590) 7.6 g/dL 6.3-8.2 ALBUMIN (test code = 1624738252) 4.4 g/dL 3.5-5.0 ALK PHOS (test code = 8967513229) 38 U/L 34-122 ALTv (test code = 1742-6) 14 U/L 5-35 AST(SGOT) (test code = 6108955096) 29 U/L 13-40 eGFR (test code = 77394-2) 67.3 mL/min/1.73m2 CKD-EPI eGFR (2020). Assuming creatinine has been stable day-to-day for at least three months, the eGFR indicates Category G2 (60 - 89 mL/min/1.73 m2) Lab Interpretation (test code = 13432-4) Abnormal [facility] CenterPO[facility] [id number] 15:50:00* Test Item Value Reference Range Interpretation Comme nts POCT PREG (test code = 1605) Negative On board controls acceptable with C Line (test code = 3574) Yes POCT PREG LOT # (test code = 3575) 178724 POCT PREG TEST DATE ( test code = 3576) 06/14/2024 Lab Interpretation (test cod e = 38140-2) Normal [facility] CenterComplete Metabolic [id number] 05:13:15* Test Item Value Reference Range Interpretation Comme nts NA (test code = 1097364659) 136 mmol/L 135-145 K (test code = 9598505568) 4.2 mmol/L 3.5-5.0 CL (test code = 1803738614) 101 mmol/L 98-108 CO2 TOTAL (test code = 7902178848) 28 mmol/L 23-31 AGAP (test code = 0905197580) 7 2-16 BUN (test code = 5952824690) 6 mg/dL 7-23 L GLUCOSE (test code = 2906253419) 98 mg/dL 70-110 CREATININE (test code = 2467125386) 0.84 mg/dL 0.50-1.04 TOTAL BILI (test code = 3533304084) 0.3 mg/dL 0.1-1.1 CALCIUM (test code = 3298799297) 9.7 mg/dL 8.6-10.6 T PROTEIN (test code = 8339288604) 7.3 g/dL 6.3-8.2 ALBUMIN (test code = 2761189986) 4.3 g/dL 3.5-5.0 ALK PHOS (test code = 4529823960) 53 U/L 34-122 ALTv (test code = 1742-6) 12 U/L 5-35 AST(SGOT) (test code = 5984995158) 25 U/L 13-40 eGFR (test code = 2608720448) 73.7 mL/min/1.73m2 WINSTON (test code = WINSTON) Association of Glomerular Filtration Rate (GFR) and Staging of Kidney Disease* + --+ --+ ------+| GFR (mL/min/1.73 m2) ?| With Kidney Damage ?| ?Without Kidney Damage+ --------+ --------+ +| ?>90 ?| ?Stage one ?| ? Normal ?+ ---+ ---+ -------+| ?60-89 ?| ?Stage two ?| ? Decreased GFR ? + --+ --+ ------+| ?30-59 ?| ?Stage three ?| ? Stage three ? + --+ --+ ------+| ?15-29 ?| ?Stage four ? | ? Stage four ?+ ---+ ---+ -------+| ?<15 (or dialysis) ? ?| ?Stage five ? | ? Stage five ?+ ---+ ---+ -------+ *Each stage assumes the associated GFR level has been in effect for at least three months. ?Stages 1 to 5, with or without kidney disease, indicate chronic kidney disease. Notes: Determination of stages one and two (with eGFR >59mL/min/1.73 m2) requires estimation of kidney damage for at least three months as defined by structural or functional abnormalities of the kidney, manifested by either:Pathological abnormalities or Markers of kidney damage (including abnormalities in the composition of the blood or urine or abnormalities in imaging tests). Lab Interpretation (test code = 55671-8) Abnormal [facility] CenterLip[facility], [id number] 05:12:54* Test Item Value Reference Range Interpretation Comme nts LIPASE (test code = 7033967404) 180 U/L 0-220 Lab Interpretation (test cod e = 83160-5) Normal [facility] CenterCB with Exxkmmzmyoke1942-32-33 04:57:31* Test Item Value Reference Range Interpretation Comme nts WBC (test code = 6690-2) 7.77 See_Comment [Automated messa ge] The system which generated this result transmitted reference range: 4.30 - 11.10 10*3/?L. The reference range was not used to interpret this result as normal/abnormal. RBC (test code = 789-8) 4.60 See_Comment [Automated messa ge] The system which generated this result transmitted reference range: 3.93 - 5.25 10*6/?L. The reference range was not used to interpret this result as normal/abnormal. HGB (test code = 718-7) 13.1 g/dL 11.6-15.0 HCT (test code = 4544-3) 37.2 % 35.7-45.2 MCV (test code = 787-2) 80.9 fL 80.6-95.5 MCH (test code = 785-6) 28.5 pg 25.9-32.8 MCHC (test code = 786-4) 35.2 g/dL 31.6-35.1 H RDW-SD (test code = 72136-7) 51.0 fL 39.0-49.9 H RDW-CV (test code = 788-0) 17.3 % 12.0-15.5 H PLT (test code = 777-3) 338 See_Comment [Automated messa ge] The system which generated this result transmitted reference range: 166 - 358 10*3/?L. The reference range was not used to interpret this result as normal/abnormal. MPV (test code = 43115-6) 10.4 fL 9.5-12.9 NRBC/100 WBC (test code = 4729917377) 0.0 See_Comment [Automated [employer] ssage] The system which generated this result transmitted reference range: 0.0 - 10.0 /100 WBCs. The reference range was not used to interpret this result as normal/abnormal. NRBC x10^3 (test code = 6432009443) See_Comment [Automated messa ge] The system which generated this result transmitted reference range: 10*3/?L. The reference range was not used to interpret this result as normal/abnormal. GRAN MAT (NEUT) % (test code = 770-8) 37.7 % IMM GRAN % (test code = 1267958355) 0.10 % LYMPH % (test code = 736-9) 51.5 % MONO % (test code = 5905-5) 8.5 % EOS % (test code = 713-8) 1.2 % BASO % (test code = 706-2) 1.0 % GRAN MAT x10^3(ANC) (test code = 0655505497) 2.93 10*3/uL 1.88-7.09 IMM GRAN x10^3 (test code = 0120760823) 0.00-0.06 LYMPH x10^3 (test code = 731-0) 4.00 10*3/uL 1.32-3.29 H MONO x10^3 (test code = 742-7) 0.66 10*3/uL 0.33-0.92 EOS x10^3 (test code = 711-2) 0.09 10*3/uL 0.03-0.39 BASO x10^3 (test code = 704-7) 0.08 10*3/uL 0.01-0.07 H Lab Interpretation (test code = 19783-4) Abnormal [facility] CenterPO[facility] [id number] 04:50:00* Test Item Value Reference Range Interpretation Comme nts POCT PREG (test code = 1605) Negative On board controls acceptable with C Line (test code = 3574) Yes POCT PREG LOT # (test code = 3575) 981992 POCT PREG TEST DATE ( test code = 3576) 11-12-2023 Lab Interpretation (test cod e = 24554-8) Normal [facility]- XR UGI W/O [id number] 08:36:00 [facility]Name: FISH LUZ : 1980 Sex: F FAX: Sukumar Colmenares [phone] Thicket: B St: UNK Name: [facility]: 1980 Age/S[facility] 27/F [address] [facility] Unit #: [id number] Loc: [place] [address] Phys: Sukumar Mejias MD Acct: [id number] Dis Date: Status: UNK PHONE #: [phone] Exam Date: 07/07/2008814 FAX #: [phone] Reason: UGI IN AM W/GASTROGGRAFFIN OR THIN BARIU EXAMS: CPT CODE:[id number] XR UGI W/O KUB 13234 HISTORY: Gastric bypass. No evidence of obstruction of the gastrojejunostomy. Free flow of contrast through the anastomotic site with mild edema and no evidence for leakage. IMPRESSION: No obstruction or leak at anastomotic site. at 0837 Reported and signed by: Matthew Marquez M.D. CC: Sukumar Mejias MD Technologist: SHEA DE LA CRUZ; STUDENT TECHNOLOGIST Trnscrd Date/Time/By: 07/07/2008 (0837): By: [email or web address] Orig Print D/T: S: 07/07/2008 (0838) PAGE 1 Signed Report"
[2024-04-20] MEDS ORDERED: ONDANSETRON 4 MG/2 ML VIAL ONE (14:28)
[2024-04-20] MEDS ORDERED: HYDROMORPHONE HCL 1 MG/ML INJ ONE (14:28)
[2024-04-20 15:04] LABS: Absolute Basophils 0.1 K/uL (0-0.5); Absolute Eosinophils 0.1 K/uL (0-0.5); Absolute Lymphocytes (CBC) 3.4 K/uL (0.7-4.9); Absolute Monocytes 0.7 K/uL (0.1-1.3); Absolute Neutrophil 3.3 K/uL (1.8-8.0); Basophils % 1.3 % (0-1.3); Eosinophils % 1.6 % (0-4.4); Lymphocytes % 44.4 % (15.3-44.8); MCH 26.7 pg (27.0-35.0); MCHC 33.2 g/dL (32.0-36.0); MCV 80.5 fL (80-100); MPV 8.4 fL (7.6-11.3); Monocytes % 8.9 % (3.3-12.3); Neutrophils % 43.8 % (41.7-73.7); Platelets 393 thou/uL (152-406); RBC Red Blood Cell Count 4.85 M/uL (3.86-4.86); Red Cell Distribution Width 17.3 % (12.1-15.2)
[2024-04-20 15:14] LABS: Sqamous Epithelial <5 /HPF (None Seen); Urine Bacteria None Seen /HPF (<20); Urine Bilirubin NEGATIVE (Negative); Urine Blood Negative (Negative); Urine Clarity Turbid (Clear); Urine Color Light-Yellow (Yellow); Urine Culture Reflex Order NOT NEEDED; Urine Glucose NEGATIVE (Negative); Urine Ketones NEGATIVE (Negative); Urine Microscopic Reflex YN ORDER UMIC; Urine Nitrite NEGATIVE (Negative); Urine Protein NEGATIVE (Negative); Urine RBC <5 /HPF (None Seen); Urine Urobilinogen Normal (Normal); Urine WBC <5 /HPF (<5); Urine pH 6.5 (5.0-7.0)
[2024-04-20 15:59] LABS: Albumin 3.4 g/dL (3.4-5.0); Albumin/Globulin Ratio 0.8 (1.1-1.8); Anion Gap 9.2 mEq/L (5.0-15.0); Bilirubin Total 0.2 mg/dL (0.2-1.0); Globulin 4.2 g/dL (2.3-3.5); Potassium 4.2 mEq/L (3.5-5.1); Protein, Total 7.6 g/dL (6.4-8.2)
--- NOTE | 2024-04-20 16:29 | ER ---
Nurse's Notes [facility] Name: Sarmad Tao Age: 43 yrs Sex: Female : 1980 Arrival Date: 04/20/2024 Time: 13:58 Bed 18 Private MD: Diagnosis: Abdominal pain Presentation: 04/20 14:12 Chief complaint: Patient states: "I was bend over looking for eye drops in my car and I aa5 just felt like a vandana horse on my stomach". Pt c/o pain and tenderness to LUQ. Coronavirus screen: At this time, the client does not indicate any symptoms associated with coronavirus-19. Ebola Screen: Patient denies travel to an Ebola-affected area in the 21 days before illness onset. Initial Sepsis Screen: Does the patient meet any 2 criteria? No. Patient's initial sepsis screen is negative. Does the patient have a suspected source of infection? No. Patient's initial sepsis screen is negative. Risk Assessment: Do you want to hurt yourself or someone else? Patient reports no desire to harm self or others. Onset of symptoms was April 20, 2024. 14:12 Method Of Arrival: Ambulatory aa5 14:12 Acuity: [place] 3 aa5 Triage Assessment: 14:10 General: Appears in no apparent distress. uncomfortable, Behavior is calm, cooperative. 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 - Infectious Disease History:: Denies. - Social history:: Smoking status: Patient denies any tobacco usage or history of. Screenin:15 [facility] ED Fall Risk Assessment (Adult) History of falling in the last 3 months, rs5 including since admission No falls in past 3 months (0 pts) Confusion or Disorientation No (0 pts) Intoxicated or Sedated No (0 pts) Impaired Gait No (0 pts) Mobility Assist Device Used No (0 pt) Altered Elimination No (0 pt) Score/Fall Risk Level 0 - 2 = Low Risk Oriented to surroundings, Maintained a safe environment. Abuse screen: Denies threats or abuse. Nutritional screening: No deficits noted. Tuberculosis screening: No symptoms or risk factors identified. Assessment: 14:10 General: Appears in no apparent distress. comfortable, Behavior is calm, cooperative. rs5 Pain: Complains of pain in abdomen Pain currently is 3 out of 10 on a pain scale. Quality of pain is described as aching, Is continuous. Neuro: Level of Consciousness is awake, alert, obeys commands, Oriented to person, place, time, situation. Cardiovascular: Patient's skin is warm and dry. Respiratory: Airway is patent Respiratory effort is even, unlabored, Respiratory pattern is regular. GI: Abdomen is round non-distended, Abd is soft and non tender X 4 quads. : No signs and/or symptoms were reported regarding the genitourinary system. EENT: No signs and/or symptoms were reported regarding the EENT system. Derm: Skin is intact, Skin is pink, warm \\T\\ dry. Musculoskeletal: Range of motion: intact in all extremities. 15:15 Reassessment: Patient and/or family updated on plan of care and expected duration. Pain rs5 level reassessed. Patient is alert, oriented x 3, equal unlabored respirations, skin warm/dry/pink. 16:18 Reassessment: Patient and/or family updated on plan of care and expected duration. Pain rs5 level reassessed. Patient is alert, oriented x 3, equal unlabored respirations, skin warm/dry/pink. Vital Signs: 14:12 BP 121 / 83; Pulse 73; Resp 18 S; Temp 98.2(O); Pulse Ox 100% on R/A; Weight 80.74 kg aa5 (R); Height 5 ft. 4 in. (R); 16:10 BP 125 / 79; Pulse 77; Resp 17; Pulse Ox 99% ; rs5 14:12 Body Mass Index 30.55 (80.74 kg, 162.56 cm) aa5 ED Course: 14:03 Patient arrived in ED. al6 14:08 Krista Simon MD is Attending Physician. sp3 14:12 Arm band placed on. aa5 14:14 Triage completed. aa5 14:15 Patient has correct armband on for positive identification. Placed in gown. Bed in low rs5 position. Call light in reach. Side rails up X2. 14:15 No provider procedures requiring assistance completed. rs5 14:20 Inserted saline lock: 20 gauge in right antecubital area, using aseptic technique. rs5 Blood collected. Flushed with 10 mL NS. 14:25 Rip Ku, RN is Primary Nurse. bp 15:43 CT Abd/Pelvis - IV Contrast Only In Process Unspecified. EDMS 16:40 IV discontinued, intact, bleeding controlled, No redness/swelling at site. Pressure rs5 dressing applied. Administered Medications: 14:49 Drug: HYDROmorphone IVP 1 mg IVP once Route: IVP; Site: left antecubital; bp 15:15 Follow up: Response: No adverse reaction; Pain is decreased rs5 14:49 Drug: Ondansetron IVP 4 mg IVP once; over 2 minutes Route: IVP; Site: left antecubital; bp 15:10 Follow up: Response: No adverse reaction; Nausea is decreased rs5 Medication: 16:16 VIS not applicable for this client. rs5 Outcome: 16:28 Discharge ordered by . sp3 16:40 Discharged to home ambulatory, rs5 16:40 Condition: stable rs5 16:40 Discharge instructions given to patient, family, Instructed on discharge instructions, follow up and referral plans. medication usage, Demonstrated understanding of instructions, follow-up care, medications, Prescriptions given X 1, 16:46 Patient left the ED. rs5 Signatures: Dispatcher [employer] EDWA Mariluz Carrillo RN RN aa5 Rip Ku, RN RN bp Krista Simon MD MD sp3 Kin Alexis RN RN rs5 Marquita Encinas6
--- NOTE | 2024-04-20 16:29 | EDPHYS ---
Physician Documentation [facility] Name: Sarmad Tao Age: 43 yrs Sex: Female : 1980 Arrival Date: 04/20/2024 Time: 13:58 Bed 18 Private MD: ED Physician Krista Simon HPI: 04/20 14:40 This 43 yrs old Black Female presents to ER via Ambulatory with complaints of hernia. sp3 14:40 43-year-old female with history of gastric bypass, abdominoplasty, BTL, sciatica now sp3 presents to the ED with chief complaint periumbilical abdominal pain. 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 She consulted with Dr. Reveles at [facility] who referred her here for CT abdomen to assess for potential hernia. Patient denies any fever, headache, URI symptoms, neck pain, chest pain, shortness of breath, vomiting, diarrhea, potential bad food, travel history, known sick contacts, or any other signs or symptoms on ROS at this time.. 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 - Infectious Disease History:: Denies. - Social history:: Smoking status: Patient denies any tobacco usage or history of. ROS: 14:41 Constitutional: Negative for fever, chills, and weight loss, Eyes: Negative for injury, sp3 pain, redness, and discharge, ENT: Negative for injury, pain, and discharge, Neck: Negative for injury, pain, and swelling, Cardiovascular: Negative for chest pain, palpitations, and edema, Respiratory: Negative for shortness of breath, cough, wheezing, and pleuritic chest pain, Back: Negative for injury and pain, : Negative for injury, bleeding, discharge, and swelling, MS/Extremity: Negative for injury and deformity, Skin: Negative for injury, rash, and discoloration, Neuro: Negative for headache, weakness, numbness, tingling, and seizure, Psych: Negative for depression, anxiety, suicide ideation, homicidal ideation, and hallucinations, Allergy/Immunology: Negative for hives, rash, and allergies, Endocrine: Negative for neck swelling, polydipsia, polyuria, polyphagia, and marked weight changes, Hematologic/Lymphatic: Negative for swollen nodes, abnormal bleeding, and unusual bruising, 14:41 All other systems are negative, Exam: 14:42 Constitutional: This is a well developed, well nourished patient who is awake, alert, sp3 and in no acute distress. Head/Face: Normocephalic, atraumatic. Eyes: Pupils equal round and reactive to light, extra-ocular motions intact. Lids and lashes normal. Conjunctiva and sclera are non-icteric and not injected. Cornea within normal limits. Periorbital areas with no swelling, redness, or edema. Neck: Trachea midline, no thyromegaly or masses palpated, and no cervical lymphadenopathy. Supple, full range of motion without nuchal rigidity, or vertebral point tenderness. No Meningismus. Chest/axilla: Normal chest wall appearance and motion. Nontender with no deformity. No lesions are appreciated. Cardiovascular: Regular rate and rhythm with a normal S1 and S2. No gallops, murmurs, or rubs. Normal PMI, no JVD. No pulse deficits. Respiratory: Lungs have equal breath sounds bilaterally, clear to auscultation and percussion. No rales, rhonchi or wheezes noted. No increased work of breathing, no retractions or nasal flaring. Back: No spinal tenderness. No costovertebral tenderness. Full range of motion. Skin: Warm, dry with normal turgor. Normal color with no rashes, no lesions, and no evidence of cellulitis. MS/ Extremity: Pulses equal, no cyanosis. Neurovascular intact. Full, normal range of motion. Neuro: Awake and alert, GCS 15, oriented to person, place, time, and situation. Cranial nerves II-XII grossly intact. Motor strength 5/5 in all extremities. Sensory grossly intact. Cerebellar exam normal. Normal gait. Psych: Awake, alert, with orientation to person, place and time. Behavior, mood, and affect are within normal limits. 14:42 Abdomen/GI: Pain to palpation periumbilically with no appreciable hernia noted. No peritoneal signs, rebound or guarding., Vital Signs: 14:12 BP 121 / 83; Pulse 73; Resp 18 S; Temp 98.2(O); Pulse Ox 100% on R/A; Weight 80.74 kg aa5 (R); Height 5 ft. 4 in. (R); 16:10 BP 125 / 79; Pulse 77; Resp 17; Pulse Ox 99% ; rs5 14:12 Body Mass Index 30.55 (80.74 kg, 162.56 cm) aa5 MDM: 14:13 Medical Screening Exam initiated sp3 14:42 Data reviewed: vital signs, nurses notes, lab test result(s), radiologic studies. ED sp3 course: 43-year-old female with abdominal pain with extensive surgical history. Differential diagnosis includes ventral hernia, adhesions, colitis, enteritis, constipation, functional abdominal pain, musculoskeletal injury, among others. I am not highly suspicious of pathology including kidney stone and/or UTI/pyelonephritis, CLINICAL GENETICIST pathology, aortic/vascular pathology or any other critical pathology at this time including sepsis and shock. Workup will include CT abdomen, labs UA and general supportive care with pain medication as indicated. Patient has a ride home with family.. 16:28 ED course: Full workup negative including labs and CT scan. Will reassure patient and sp3 if patient continues to have pain she will need to follow-up with general surgery for possible evaluation for exploration for lysis of adhesions.. 04/20 14:14 Order name: CBC with Diff; Complete Time: 16:05 sp3 04/20 14:14 Order name: CMP; Complete Time: 16: sp3 04/20 14:14 Order name: Lipase; Complete Time: 16:05 sp3 04/20 14:14 Order name: Test, Urine; Complete Time: 16:05 sp3 04/20 14:14 Order name: Urinalysis w/ reflexes; Complete Time: 16:05 sp3 04/20 14:14 Order name: CT Abd/Pelvis - IV Contrast Only sp3 04/20 14:14 Order name: IV Saline Lock; Complete Time: 14:50 3 04/20 14:14 Order name: Labs collected and sent; Complete Time: 14:50 sp3 04/20 15:06 Order name: Labs - recollect needed: recollect green top/ hemolyzed per lab; Complete eb Time: 15:25 Administered Medications: 14:49 Drug: HYDROmorphone IVP 1 mg IVP once Route: IVP; Site: left antecubital; bp 15:15 Follow up: Response: No adverse reaction; Pain is decreased rs5 14:49 Drug: Ondansetron IVP 4 mg IVP once; over 2 minutes Route: IVP; Site: left antecubital; bp 15:10 Follow up: Response: No adverse reaction; Nausea is decreased rs5 Disposition Summary: 04/20/24 16:28 Discharge Ordered Notes: Location: Home sp3 Condition: Stable sp3 Diagnosis - Abdominal pain sp3 Followup: sp3 - With: Private Physician - When: Upon discharge from the Emergency Department - Reason: Recheck today's complaints, Continuance of care Discharge Instructions: - Discharge Summary Sheet sp3 - Abdominal Pain, Adult sp3 Forms: - Medication Reconciliation Form sp3 - Antibiotic Education sp3 - Prescription Opioid Use sp3 - Patient Portal Instructions sp3 - Leadership Thank You Letter sp3 Prescriptions: - Tramadol 50 mg Oral Tablet - take 1 tablet ORAL route every 8 hours as needed; 12 tablet; Refills: 0, sp3 Product Selection Permitted Signatures: Dispatcher [employer] Mariluz Boggs RN RN aa5 Rip Ku RN RN Tanika Romero Setul, MD MD sp3 Kin Alexis RN rs5 Corrections: (The following items were deleted from the chart) 14:14 14:14 CBC+H.LAB.BRZ ordered. EDMS EDMS 14:14 14:14 COMPREHENSIVE METABOLIC PANEL+C.LAB.BRZ ordered. EDMS EDMS 14:14 14:14 LIPASE+C.LAB.BRZ ordered. EDMS EDMS 14:14 14:14 Test, Urine+UC.LAB.BRZ ordered. EDMS EDMS 14:14 14:14 Urinalysis+U.LAB.BRZ ordered. EDMS EDMS 14:14 14:14 Abdomen Pelvis W Con+CT.RAD.BRZ ordered. EDMS EDMS
--- NOTE | 2024-04-20 17:08 | RAD REPORT ---
EXAMINATION: CT ABDOMEN AND PELVIS WITH CONTRAST CLINICAL INDICATION: Female, 43 years old.ABD PAIN TECHNIQUE: CT abdomen and pelvis was performed, after the administration of IV contrast, [facility]. Axial, sagittal and coronal reconstructions were obtained. One or more of the following dose reduction techniques were used: Automated exposure control, adjustment of the mA and/o r kV according to patient size, and/or iterative reconstruction. Unless otherwise specified, incidental findings do not require dedicated imaging follow-up. [id number]. COMPARISON: 02/24/2020 FINDINGS: LOWER CHEST: No acute process identified.No significant pericardial effusion. Possible complex sebace ous cyst in the left upper quadrant/left lower chest wall. UPPER GI: Status post Lauro-en-Y gastric bypass. No bowel obstruction identified. LIVER: Hepatic steatosis, but otherwise unremarkable. GALLBLADDER/BILE DUCTS: Cholelithiasis without CT evidence of acute cholecystitis.? PANCREAS: No mass, ductal dilation, or liza-pancreatic fluid. SPLEEN: Unremarkable. ADRENALS: No adrenal masses. KIDNEYS AND URETERS: No hydronephrosis.No suspicious renal mass. ABDOMINAL AORTA AND OTHER VESSELS: Normal caliber aorta and IVC. PERITONEUM: No abnormal free fluid. No free air. LYMPH NODES: No pathologic lymphadenopathy. ABDOMINAL WALL: Unremarkable SMALL BOWEL/COLON: Small bowel has normal course and caliber. No colonic wall thickening or pericolon ic inflammatory changes.Moderate colonic stool. Normal appendix. URINARY BLADDER: Underdistended but grossly unremarkable. REPRODUCTIVE ORGANS: Corpus luteum in the right ovary. IUD present. MUSCULOSKELETAL: No acute or suspicious osseous abnormality. ADDITIONAL FINDINGS: None. IMPRESSION: No acute or significant abnormalities seen in the abdomen or pelvis. Cholelithiasis without CT signs acute sinusitis. Lauro-en-Y gastric bypass without complicating features.
[2024-04-22 02:20] VITALS: BP 121/83; TEMP 98.2; O2SAT 100
== END 2024-04-20 16:46 | disposition home or self-care (01) ==
LOC: ER 13:58
DX: R10.10 Upper abdominal pain, unspecified (principal); G47.00 Insomnia, unspecified; M54.30 Sciatica, unspecified side; Z98.84 Bariatric surgery status; Z88.5 Allergy status to narcotic agent; Z88.6 Allergy status to analgesic agent
CPT/HCPCS: 85025; 81001; 36415; 81025; 83690; 80053; 74177; 96375; 96374; 99284; Q9967; J1171; J2405